=== PATIENT | female | born 1955 | race Caucasian/White ===

== ENCOUNTER 2018-09-03 11:50 | Emergency (ER) | payer OTHER ==
[2018-09-03 12:06] VITALS: BP 142/67; PULSE 69; RESP 18; TEMP 97.9
--- NOTE | 2018-09-03 13:02 | ED ---
General Adult HPI - General Chief complaint: Abdominal Pain Stated complaint: Abdominal pain Time Seen by Provider: 09/03/18 11:53 Source: patient, RN notes reviewed Mode of arrival: EMS Limitations: no limitations - History of Present Illness Initial comments: 62-year-old female presents to the emergency department for a chief complaint of epigastric pain. Patient states that she was eating breakfast when she suddenly felt a pain in her epigastric area she states this pain did radiate in her chest somewhat.. Patient states this concerned her so she immediately called EMS. As EMS was on their way she took simethicone. When she arrived to the emergency department she states pain is completely gone. She states this is completely consistent with her peptic ulcer disease. She states she has no concern for her heart at this time. She states she does not need evaluation and wants to go home as she is feeling 100% better. Patient has no other complaints at this time including shortness of breath, nausea or vomiting, headache, or visual changes. - Related Data Home Medications Medication Instructions Recorded Confirmed Aspirin 81 mg PO DAILY 11/09/13 07/04/14 Cholecalciferol [Vitamin D3] 1,000 unit PO DAILY 11/09/13 07/04/14 Esomeprazole Magnesium [NexIUM] 40 mg PO DAILY 11/09/13 07/04/14 Fenofibrate Nanocrystallized 145 mg PO DAILY 11/09/13 07/04/14 [Tricor] Fexofenadine/Pseudoephedrine 1 each PO BID 11/09/13 07/04/14 [Gwen-D 12 Hour Tablet] Levothyroxine Sodium [Synthroid] 125 mcg PO DAILY 11/09/13 07/04/14 Montelukast Sodium [Singulair] 10 mg PO DAILY 11/09/13 07/04/14 Pregabalin [Lyrica] 75 mg PO BID 11/09/13 07/04/14 [place] Oil/[place]-3 Fatty Acids 2 each PO BID 11/09/13 07/04/14 [Fish Oil 500 mg Softgel] Sodium Chloride 5% Ophth Oint 1 applic BOTH EYES HS 07/04/14 07/04/14 [Mike 128] Previous Rx's Medication Instructions Recorded Ondansetron Odt [Zofran ODT] 4 mg PO Q12HR PRN #10 tab 11/09/13 Ondansetron [Zofran ODT] 4 mg PO Q8HR #10 tab 11/09/13 Allergies Allergy/AdvReac Type Severity Reaction Status Date / Time Penicillins Allergy Rash/Hives Verified 07/04/14 12:09 Sulfa (Sulfonamide Allergy Rash/Hives Verified 07/04/14 12:09 Antibiotics) Review of Systems ROS Statement: Those systems with pertinent positive or pertinent negative responses have been documented in the HPI. ROS Other: All systems not noted in ROS Statement are negative. Past Medical History Past Medical History: Asthma, COPD, GERD/Reflux, Hyperlipidemia, Thyroid Disorder Additional Past Medical History / Comment(s): TRIGEMINAL NEURALGIA, keratoconjuntivitis sicca. "bad gallbladder" History of Any Multi-Drug Resistant Organisms: None Reported Past Surgical History: No Surgical Hx Reported Additional Past Surgical History / Comment(s): cataracts, dental extraction Past Psychological History: No Psychological Hx Reported Smoking Status: Current every day smoker Past Alcohol Use History: None Reported Past Drug Use History: None Reported General Exam Limitations: no limitations General appearance: alert, in no apparent distress Head exam: Present: atraumatic, normocephalic, normal inspection Eye exam: Present: normal appearance, PERRL, EOMI. Absent: scleral icterus, conjunctival injection, periorbital swelling ENT exam: Present: normal exam, mucous membranes moist Neck exam: Present: normal inspection. Absent: tenderness, meningismus, lymphadenopathy Respiratory exam: Present: normal lung sounds bilaterally. Absent: respiratory distress, wheezes, rales, rhonchi, stridor Cardiovascular Exam: Present: regular rate, normal rhythm, normal heart sounds. Absent: systolic murmur, diastolic murmur, rubs, gallop, clicks GI/Abdominal exam: Present: soft, normal bowel sounds. Absent: distended, tenderness (No tenderness in the epigastric area), guarding, rebound, rigid Neurological exam: Present: alert, oriented X3, CN II-XII intact Psychiatric exam: Present: normal affect, normal mood Course Vital Signs 09/03/18 12:01 Temperature 97.9 F Pulse Rate 69 Respiratory 18 Rate Blood Pressure 142/67 O2 Sat by Pulse 99 Oximetry Medical Decision Making - Medical Decision Making 62-year-old female with a past medical history of hyperlipidemia, COPD, asthma, GERD, peptic ulcer disease presents for epigastric pain after eating breakfast. This did radiate into the chest. She called EMS and took simethicone. Upon arrival to emergency department. Is completely resolved. Patient refusing evaluation at this time stating she is feeling 100% better. I did discuss that I am concerned about patient's heart given comorbidities as well as pain radiating into the chest. She states she is not concerned about this as she has had this pain before with her peptic ulcer disease. Patient is aware that she could have [place] causing permanent disability or . She does not want an EKG at this time. Patient willing to leave AGAINST MEDICAL ADVICE which was discussed thoroughly with her. I did discuss returning if she has worsening symptoms and that we will see her again for this problem. She will follow up with primary care. Disposition Clinical Impression: Epigastric pain, History of peptic ulcer disease Disposition: Left Against Medical Advice Condition: Fair Instructions (If sedation given, give patient instructions): Chest Pain (ED), Peptic Ulcer (ED) Additional Instructions: Please follow up with primary care in 1-2 days. If you have worsening symptoms return here to the emergency department. Is patient prescribed a controlled substance at d/c from ED?: No Referrals: Holly Asher III, MD [Primary Care Provider] - 1-2 days Time of Disposition: 13:02
== END 2018-09-03 13:13 | disposition left against medical advice (07) ==
LOC: EC 11:50
DX: R10.13 Epigastric pain (principal); Z87.11 Personal history of peptic ulcer disease; J44.9 Chronic obstructive pulmonary disease, unspecified; E78.5 Hyperlipidemia, unspecified; K21.9 Gastro-esophageal reflux disease without esophagitis; E07.9 Disorder of thyroid, unspecified; H16.229 Keratoconjunctivitis sicca, not specified as Sjogren's, unspecified eye; F17.200 Nicotine dependence, unspecified, uncomplicated; Z88.0 Allergy status to penicillin; Z88.2 Allergy status to sulfonamides; Z79.82 Long term (current) use of aspirin; Z79.890 Hormone replacement therapy; Z79.899 Other long term (current) drug therapy; Z86.69 Personal history of other diseases of the nervous system and sense organs; Z53.20 Procedure and treatment not carried out because of patient's decision for unspecified reasons
CPT/HCPCS: 99284

== ENCOUNTER → 2021-06-04 | Outpatient (CLI) | payer OTHER ==
--- NOTE | 2021-06-05 09:59 | CT ---
EXAMINATION TYPE: CT sinus wo con DATE OF EXAM: 06/04/2021 COMPARISON: NONE HISTORY: Facial pain and headache. Swelling. CT DLP: 593.60 mGycm. Automated Exposure Control for Dose Reduction was Utilized. TECHNIQUE: CT scan of the sinuses is performed without contrast, axial images are obtained, coronal r eformatted images are also reviewed. FINDINGS: The paranasal sinuses including the frontal, ethmoid, sphenoid, and maxillary sinuses bila terally are well-aerated without abnormal opacification or suspicious air-fluid levels. The ostiomea lady complex is patent bilaterally on coronal image 19. Nasal septum is deviated to right of midline. Visualized portion of mastoid air cells show no abnormal opacification. The globes are intact bilate rally. Visualized portion of brain parenchyma is unremarkable. Moderate calcified plaque distal inte rnal carotid arteries bilaterally. IMPRESSION: The sinuses are clear and the ostiomeatal complex is patent bilaterally.
== END | disposition home or self-care (01) ==
LOC: RADCTMAIN 18:43
PROVIDERS: ATTEND Family Medicine
DX: R51.9 Headache, unspecified (principal)
CPT/HCPCS: 70486

== ENCOUNTER → 2021-07-30 | Outpatient (CLI) | payer OTHER ==
--- NOTE | 2021-07-30 11:07 | CT ---
EXAMINATION TYPE: CT brain wo con DATE OF EXAM: 07/30/2021 COMPARISON: None HISTORY: Right sided facial and head pain with history of trigeminal neuralgia. CT DLP: 1090.4 mGycm Automated exposure control for dose reduction was used. FINDINGS: Ventricular system is midline without evidence of displacement. There is no acute hemorrhage or mass effect. Ventricular size is compatible with the patient's age. A couple faint areas of nonspecific low attenuation in the white matter. Orbits are symmetric. Nasal septal deviation noted. Craniocervical junction maintained. Sella turcica and normal. Calvarium intact. Intracranial atherosclerotic changes. IMPRESSION: NO ACUTE INTRACRANIAL PROCESS. VERY MINIMAL NONSPECIFIC WHITE MATTER CHANGES MOST LIKELY IN THE BASIS OF REMOTE WHITE MATTER ISCHEMIA. IF SYMPTOMS PERSIST CONSIDER MRI.
== END | disposition home or self-care (01) ==
LOC: RADCTMAIN 10:36
PROVIDERS: ATTEND Psychiatry & Neurology Neurology
DX: R51.9 Headache, unspecified (principal)
CPT/HCPCS: 70450

== ENCOUNTER → 2021-09-08 | Outpatient (CLI) | payer OTHER ==
--- NOTE | 2021-09-08 21:10 | CT ---
EXAMINATION TYPE: CT abdomen pelvis wo con DATE OF EXAM: 09/08/2021 COMPARISON: None available HISTORY: abdominal pain, diarrhea CT DLP: 2840.2 mGycm Automated exposure control for dose reduction was used. TECHNIQUE: Helical acquisition of images was performed from the lung bases through the pelvis. FINDINGS: Unremarkable stomach, duodenum and small bowel. Mild pericolic fat stranding seen surrounding the jose cending colon, nonspecific. Unremarkable remainder of the colon otherwise. Enlarged liver measuring 23.4 cm with suspected hepatic steatosis. No definite hepatic focal lesion b y this nonenhanced CT scan. The gallbladder is contracted with possible hyperdensities within. It is inseparable from the colonic hepatic flexure. Tiny air bubbles are seen within the gallbladder neck, cystic duct, CHD and central left intrahepatic bile ducts. In the absence of recent biliary intervent ion, this could be related to incompetent sphincter of Oddi versus fistula between the gallbladder an d the colon. No intra or extrahepatic biliary tree dilatation. No pericholecystic fluid or fat strand ing. Unremarkable unenhanced CT appearance of the spleen, pancreas, adrenals and left kidney. Right renal cysts without suspicious feature. No hydronephrosis or hydroureter. Grossly unremarkable urinary blad moshe. No gross uterine or adnexal mass. Arterial atherosclerotic calcifications. Prominent external il iac and to a lesser extent inguinal lymph nodes. For example, a right external iliac lymph node measu res 18 mm. A left external iliac lymph node measures 13 mm. No pathologically enlarged mesenteric or retroperitoneal lymph nodes. Anterior abdominal wall skin thickening mainly seen inferiorly at the pannus. No sizable ascites. Per itoneal mouse is seen between the rectum and the uterine cervix. Bilateral basal subsegmental pulmona ry atelectasis and subpleural reticulations. Right flank subcutaneous soft tissue calcification. Dege nerative changes of the lower thoracic, lumbar spine and sacroiliac joints. Grade 1 anterolisthesis o f L4 over L5. IMPRESSION: Suboptimal CT scan due to the lack of IV contrast administration. Contracted gallbladder with possibl e hyperdensities within associated with air bubbles seen within the gallbladder, cystic duct, CHD and central intrahepatic biliary tree (pneumobilia). No pericholecystic fluid or fat stranding. In the absence of recent biliary intervention, this could be related to an incompetent sphincter of O ddi versus fistula between the gallbladder and the colonic hepatic flexure as described above. Recomm end correlation with liver function tests, bilirubin level and further ultrasound assessment. If inco nclusive, further MRI assessment should be considered. Other incidental findings as described above. A [place] level critical message alert has been initiated for Holly Asher III, MD via the [employer] Critical Results System on 09/08/2021 9:11 PM. This message alert has been sent to Holly garcia III, MD via the preferences provided by the clinician for the receipt of Radiology Critical Fin dings. Message ID [id number].
== END | disposition home or self-care (01) ==
LOC: RADCTMAIN 11:42
PROVIDERS: ATTEND Family Medicine
DX: R10.84 Generalized abdominal pain (principal)
CPT/HCPCS: 74176

== ENCOUNTER 2023-02-04 12:27 | Emergency (ER) | payer MEDICARE, OTHER ==
[2023-02-04 12:41] VITALS: RESP 20; TEMP 98.1
[2023-02-04] MEDS ORDERED: CLINDAMYCIN 150 MG CAP PO STA (13:12)
--- NOTE | 2023-02-04 13:12 | ED ---
Lower Extremity Injury HPI - General Chief Complaint: Extremity Injury, Lower Stated Complaint: poss cellulitus rt leg Time Seen by Provider: 02/04/23 12:40 Source: patient Mode of arrival: ambulatory - History of Present Illness Initial Comments: 67-year-old female with past medical history of hyperlipidemia, obesity who presents to the emergency department reporting right lower extremity swelling and pain. States that she does have venous stasis. One week ago the patient was having significant itching in the extremity. She scratched her skin and sustained open abrasions. She then had increasing swelling and redness to the site. Admits to a history of recurrent cellulitis. She normally does not have to wear compression stockings. She has never gone to wound care. No history of MRSA. No history of DVT or PE. Denies any chest pain or shortness of breath. No alleviating, precipitating or modifying factors - Related Data Home Medications Medication Instructions Recorded Confirmed Aspirin 81 mg PO DAILY 11/09/13 12/03/21 Cholecalciferol [Vitamin D3] 2,000 unit PO BID 11/09/13 12/03/21 Levothyroxine Sodium [Synthroid] 125 mcg PO DAILY 11/09/13 12/03/21 Montelukast Sodium [Singulair] 10 mg PO DAILY 11/09/13 12/03/21 Pregabalin [Lyrica] 150 mg PO BID 11/09/13 12/03/21 Acetaminophen Tab [Tylenol Tab] 1,000 mg PO Q6HR 12/03/21 12/03/21 Cyanocobalamin (Vitamin B-12) 1,000 mcg PO DAILY 12/03/21 12/03/21 [Vitamin B-12] Dicyclomine [Bentyl] 20 mg PO TID 12/03/21 12/03/21 Lansoprazole [Prevacid] 30 mg PO DAILY 12/03/21 12/03/21 Loratadine-Pseudoeph 5-120 mg 1 tab PO Q12HR 12/03/21 12/03/21 [Claritin-D 12 Hour] [place]-3 Fatty Acids/Fish Oil [Fish 1 each PO DAILY 12/03/21 12/03/21 Oil 1,000 mg Softgel] Simethicone 180 mg PO BID 12/03/21 12/03/21 carBAMazepine [TEGretol] 200 mg PO BID 12/03/21 12/03/21 hydroCHLOROthiazide [Hydrodiuril] 25 mg PO DAILY 12/03/21 12/03/21 Previous Rx's Medication Instructions Recorded clindamycin HCL [Cleocin] 300 mg PO Q6HR #28 cap 02/04/23 Allergies Allergy/AdvReac Type Severity Reaction Status Date / Time Penicillins Allergy Unknown Verified 02/04/23 12:41 Childhood Sulfa (Sulfonamide Allergy Rash/Hives Verified 02/04/23 12:41 Antibiotics) Review of Systems ROS Statement: Those systems with pertinent positive or pertinent negative responses have been documented in the HPI. ROS Other: All systems not noted in ROS Statement are negative. Past Medical History Past Medical History: Asthma, GERD/Reflux, Hyperlipidemia, Osteoarthritis (OA), Thyroid Disorder Additional Past Medical History / Comment(s): TRIGEMINAL NEURALGIA, LT EYE keratoconjuntivitis sicca. CHANGE IN BOWEL HABITS-LOOSE STOOLS SINCE AUG 2021. HYPOGLYCEMIC History of Any Multi-Drug Resistant Organisms: None Reported Past Surgical History: No Surgical Hx Reported Additional Past Surgical History / Comment(s): BILAT cataracts, dental extraction. EGD Past Anesthesia/Blood Transfusion Reactions: No Reported Reaction Past Psychological History: Anxiety, Depression Smoking Status: Current every day smoker Past Alcohol Use History: None Reported Past Drug Use History: None Reported - Past Family History Mother Additional Family Medical History / Comment(s): ADOPTED General Exam General appearance: alert, in no apparent distress Extremities exam: Present: pedal edema (With the right being worse than the left. There is an open area measuring 4 x 2 cm on the anterior right hughes with no active drainage. No fluctuance. Large surrounding area of cellulitis. 2+ edema in the right lower extremity with 1+ in the left lower extremity. No knee swelling) Back exam: Present: normal inspection Neurological exam: Present: alert, oriented X3, CN II-XII intact Psychiatric exam: Present: normal affect, normal mood Skin exam: Present: warm, dry. Absent: rash Course Vital Signs 02/04/23 02/04/23 12:36 15:13 Temperature 98.1 F Pulse Rate 79 86 Respiratory 20 20 Rate Blood Pressure 181/82 175/86 O2 Sat by Pulse 95 98 Oximetry Medical Decision Making - Medical Decision Making Was pt. sent in by a medical professional or institution (, PA, FASHION DIRECTOR [employer], urgent care, hospital, or long-term...) When possible be specific @ -[facility] Did you speak to anyone other than the patient for history (EMS, parent, family, police, friend...)? What history was obtained from this source @ -No Did you review nursing and triage notes (agree or disagree)? Why? @ -I reviewed and agree with nursing and triage notes Were old charts reviewed (outside hosp., previous admission, EMS record, old EKG, old radiological studies, urgent care reports/EKG's, long-term records)? Report findings @ -No old charts were reviewed Differential Diagnosis (chest pain, altered mental status, abdominal pain women, abdominal pain men, vaginal bleeding, weakness, fever, dyspnea, syncope, headache, dizziness, GI bleed, back pain, seizure, CVA, palpatations, mental health, musculoskeletal)? @ -Cellulitis, DVT, venous stasis, necrotizing fascitis, MRSA EKG interpreted by me (3pts min.). @ -Not completed X-rays interpreted by me (1pt min.). @ -None done CT interpreted by me (1pt min.). @ -None done U/S interpreted by me (1pt. min.). @ -None done What testing was considered but not performed or refused? (CT, X-rays, U/S, labs)? Why? @ -Ultrasound of the lower extremity however patient refused What meds were considered but not given or refused? Why? @ -None Did you discuss the management of the patient with other professionals (professionals i.e. , PA, [employer], lab, RT, psych nurse, community mental health social worker, tetryl screen operator, teacher, building drafting officer, casework specialist)? Give summary @ -No Was smoking cessation discussed for >3mins.? @ -No Was critical care preformed (if so, how long)? @ -No Were there social determinants of health that impacted care today? How? (Homelessness, low income, unemployed, alcoholism, drug addiction, transportation, low edu. Level, literacy, decrease access to med. care, [facility], rehab)? @ -No Was there de-escalation of care discussed even if they declined (Discuss DNR or withdrawal of care, Hospice)? DNR status @ -No What co-morbidities impacted this encounter? (DM, HTN, Smoking, COPD, CAD, Cancer, CVA, ARF, Chemo, Hep., AIDS, mental health diagnosis, sleep apnea, morbid obesity)? @ -Obesity, chronic venous stasis Was patient admitted / discharged? Hospital course, mention meds given and route, prescriptions, significant lab abnormalities, going to OR and other pertinent info. @ -Upon arrival the patient is placed in room 14. Thorough history and physical exam was performed. We did cleanse the patient's wound. She will be started on antibiotics. States that she cannot tolerate Keflex and therefore sh law is placed on clindamycin. Is instructed to keep the area clean and dry. Recommended that she follow up with primary care doctor for wound reevaluation and return for any new or worsening symptoms. Patient was agreeable to this plan she is discharged in stable condition Undiagnosed new problem with uncertain prognosis? @ -No Drug Therapy requiring intensive monitoring for toxicity (Heparin, Nitro, Insulin, Cardizem)? @ -No Were any procedures done? @ -No Diagnosis/symptom? @ -Acute cellulitis right lower extremity Acute, or Chronic, or Acute on Chronic? @ -Acute Uncomplicated (without systemic symptoms) or Complicated (systemic symptoms)? @ -Uncomplicated Side effects of treatment? @ -ALLERGIC reaction Exacerbation, Progression, or Severe Exacerbation? @ -No Poses a threat to life or bodily function? How? (Chest pain, [place], [place], pneumonia, PE, COPD, DKA, ARF, appy, cholecystitis, CVA, Diverticulitis, Homicidal, Suicidal, threat to staff... and all critical care pts) @ -No Disposition Clinical Impression: Cellulitis Disposition: HOME SELF-CARE Condition: Stable Instructions (If sedation given, give patient instructions): Cellulitis (ED) Additional Instructions: Take the antibiotics as directed. Follow up with your doctor and return for any new or worsening symptoms Prescriptions: clindamycin HCL [Cleocin] 300 mg PO Q6HR #28 cap Is patient prescribed a controlled substance at d/c from ED?: No Referrals: None,Stated [Primary Care Provider] - 1-2 days Time of Disposition: 14:52
[2023-02-04 15:14] VITALS: BP 175/86; PULSE 86
== END 2023-02-04 15:13 | disposition home or self-care (01) ==
LOC: EC 12:27
DX: L03.115 Cellulitis of right lower limb (principal); J45.909 Unspecified asthma, uncomplicated; E78.5 Hyperlipidemia, unspecified; K21.9 Gastro-esophageal reflux disease without esophagitis; E07.9 Disorder of thyroid, unspecified; E66.9 Obesity, unspecified; F17.200 Nicotine dependence, unspecified, uncomplicated; Z79.82 Long term (current) use of aspirin; Z79.890 Hormone replacement therapy; Z79.899 Other long term (current) drug therapy; Z88.0 Allergy status to penicillin; Z88.2 Allergy status to sulfonamides; Z68.41 Body mass index [BMI] 40.0-44.9, adult
CPT/HCPCS: 99283

== ENCOUNTER → 2023-05-20 | Outpatient (CLI) | payer MEDICARE, OTHER ==
--- NOTE | 2023-05-20 15:15 | US ---
EXAMINATION TYPE: US arterial LE multi level DATE OF EXAM: 05/20/2023 2:32 PM CLINICAL INDICATION: Female, 67 years old with history of I73.9 PERIPHERAL VASCULAR DISEASE, UNSPECIF IED; PVD History of: Smoker: Current Smoker Hypertension: No Diabetic: No Hyperlipidemia: No TIA/CVA: No Previous Vascular Surgery: No CAD: No NM: No Vascular Ulcers: No Claudication: No Gangrene: No Doppler Waveforms: Right: Multiphasic, monophasic waveform within the digit Left: Multiphasic, monophasic waveforms within the dorsalis pedis and digit Right Brachial Pressure: 149 Left Brachial Pressure: 160 Ankle-Brachial Indices: Right: 1.11 Left: 1.21 Toe Brachial Indices: Right: 0.68 Left: 0.69 IMPRESSION: Normal ankle-brachial indices bilaterally.
== END | disposition home or self-care (01) ==
LOC: RADUSWWP 13:55
PROVIDERS: ATTEND Internal Medicine Geriatric Medicine
DX: I73.9 Peripheral vascular disease, unspecified (principal)
CPT/HCPCS: 93922

== ENCOUNTER 2023-08-12 22:41 | Observation (INO) | payer MEDICARE, OTHER ==
--- NOTE | 2023-08-12 22:58 | ED ---
Abdominal Pain HPI - General Chief Complaint: Abdominal Pain Stated Complaint: ABD PAIN Time Seen by Provider: 08/12/23 22:46 Source: patient, EMS Mode of arrival: EMS Limitations: no limitations - History of Present Illness Initial Comments: Alana Peña is a 67-year-old female who presents to the ER today for evaluation of right upper quadrant and epigastric abdominal pain. Patient reports she has a history of gallbladder problems and for the past 5 days has been having pain after every time she eats specifically the worst after eating supper which is her heaviest meal. Patient states that today she had some chicken and bread and then she developed severe epigastric and right upper quadrant abdominal pain. She then had what she described as a yellow greasy bowel movement. Pain has resolved however she came to the ER for evaluation. Patient's not had any fevers or chills. She felt some nausea no vomiting with the pain. - Related Data Home Medications Medication Instructions Recorded Confirmed Aspirin 81 mg PO DAILY 11/09/13 12/03/21 Cholecalciferol [Vitamin D3] 2,000 unit PO BID 11/09/13 12/03/21 Levothyroxine Sodium [Synthroid] 125 mcg PO DAILY 11/09/13 12/03/21 Montelukast Sodium [Singulair] 10 mg PO DAILY 11/09/13 12/03/21 Pregabalin [Lyrica] 150 mg PO BID 11/09/13 12/03/21 Acetaminophen Tab [Tylenol Tab] 1,000 mg PO Q6HR 12/03/21 12/03/21 Cyanocobalamin (Vitamin B-12) 1,000 mcg PO DAILY 12/03/21 12/03/21 [Vitamin B-12] Dicyclomine [Bentyl] 20 mg PO TID 12/03/21 12/03/21 Lansoprazole [Prevacid] 30 mg PO DAILY 12/03/21 12/03/21 Loratadine-Pseudoeph 5-120 mg 1 tab PO Q12HR 12/03/21 12/03/21 [Claritin-D 12 Hour] [place]-3 Fatty Acids/Fish Oil [Fish 1 each PO DAILY 12/03/21 12/03/21 Oil 1,000 mg Softgel] Simethicone 180 mg PO BID 12/03/21 12/03/21 carBAMazepine [TEGretol] 200 mg PO BID 12/03/21 12/03/21 hydroCHLOROthiazide [Hydrodiuril] 25 mg PO DAILY 12/03/21 12/03/21 Previous Rx's Medication Instructions Recorded clindamycin HCL [Cleocin] 300 mg PO Q6HR #28 cap 02/04/23 Allergies Allergy/AdvReac Type Severity Reaction Status Date / Time Penicillins Allergy Unknown Verified 08/12/23 22:56 Childhood Sulfa (Sulfonamide Allergy Rash/Hives Verified 08/12/23 22:56 Antibiotics) Review of Systems ROS Statement: Those systems with pertinent positive or pertinent negative responses have been documented in the HPI. ROS Other: All systems not noted in ROS Statement are negative. Past Medical History Past Medical History: Asthma, GERD/Reflux, Hyperlipidemia, Osteoarthritis (OA), Thyroid Disorder Additional Past Medical History / Comment(s): TRIGEMINAL NEURALGIA, LT EYE keratoconjuntivitis sicca. CHANGE IN BOWEL HABITS-LOOSE STOOLS SINCE AUG 2021. HYPOGLYCEMIC History of Any Multi-Drug Resistant Organisms: None Reported Past Surgical History: No Surgical Hx Reported Additional Past Surgical History / Comment(s): BILAT cataracts, dental ex traction. EGD Past Anesthesia/Blood Transfusion Reactions: No Reported Reaction Past Psychological History: Anxiety, Depression Smoking Status: Current every day smoker Past Alcohol Use History: None Reported Past Drug Use History: None Reported - Past Family History Mother Additional Family Medical History / Comment(s): ADOPTED General Exam Limitations: no limitations General appearance: alert, in no apparent distress Head exam: Present: atraumatic Eye exam: Present: PERRL ENT exam: Present: normal exam Neck exam: Present: normal inspection Respiratory exam: Absent: respiratory distress Cardiovascular Exam: Present: regular rate GI/Abdominal exam: Present: soft, other (Protuberant abdomen with mild right upper quadrant tenderness). Absent: guarding, rebound, rigid Rectal exam: Present: deferred Extremities exam: Present: full ROM Neurological exam: Present: alert, oriented X3 Psychiatric exam: Present: normal affect, normal mood Skin exam: Present: warm, dry, intact Course Vital Signs 08/12/23 08/13/23 08/13/23 22:44 00:00 02:00 Temperature 99.4 F 99.0 F 99.1 F Pulse Rate 91 89 120 H Respiratory 24 18 24 Rate Blood Pressure 173/68 143/54 138/59 O2 Sat by Pulse 95 98 96 Oximetry 08/13/23 08/13/23 08/13/23 04:00 05:00 06:30 Temperature 99.9 F H 99.8 F H Pulse Rate 125 H 118 H 105 H Respiratory 15 18 19 Rate Blood Pressure 121/44 119/40 119/54 O2 Sat by Pulse 98 97 94 L Oximetry Medical Decision Making - Medical Decision Making Was pt. sent in by a medical professional or institution (, PA, EVAPORATOR HELPER, urgent care, hospital, or group home...) When possible be specific @ -No Did you speak to anyone other than the patient for history (EMS, parent, family, police, friend...)? What history was obtained from this source @ - at bedside Did you review nursing and triage notes (agree or disagree)? Why? @ -I reviewed and agree with nursing and triage notes Were old charts reviewed (outside hosp., previous admission, EMS record, old EKG, old radiological studies, urgent care reports/EKG's, group home records)? Report findings @ -No old charts were reviewed Differential Diagnosis (chest pain, altered mental status, abdominal pain women, abdominal pain men, vaginal bleeding, weakness, fever, dyspnea, syncope, headache, dizziness, GI bleed, back pain, seizure, CVA, palpatations, mental health)? @ -Differential Abdominal Pain Women: Appendicitis, Cholecystitis, diverticulosis, ischemic bowel, pancreatitis, hepatitis, UTI, gastroenteritis, AAA, incarcerated hernia, bowel obstruction, constipation, inflammatory bowel, hepatitis, peptic ulcer disease, splenic infarction, perforated viscus, vulvitis, ovarian torsion, PID, kidney stone, placenta abruption, this is not meant to be an all-inclusive list EKG interpreted by me (3pts min.). @ -As above X-rays interpreted by me (1pt min.). @ -None done CT interpreted by me (1pt min.). @ -No enlarged gallbladder, no free air no signs of obstruction U/S interpreted by me (1pt. min.). @ -None done What testing was considered but not performed or refused? (CT, X-rays, U/S, labs)? Why? @ -HIDA scan can be completed during hospitalization What meds were considered but not given or refused? Why? @ -None Did you discuss the management of the patient with other professionals (professionals i.e. , PA, EVAPORATOR HELPER, lab, RT, psych nurse, professor of social work, treater, teacher, worldwide chief creative officer, caser)? Give summary @ -Admitting physician Was smoking cessation discussed for >3mins.? @ -No Was critical care preformed (if so, how long)? @ -No Were there social determinants of health that impacted care today? How? (Homelessness, low income, unemployed, alcoholism, drug addiction, transportation, low edu. Level, literacy, decrease access to med. care, [facility], rehab)? @ -No Was there de-escalation of care discussed even if they declined (Discuss DNR or withdrawal of care, Hospice)? DNR status @ -No What co-morbidities impacted this encounter? (DM, HTN, Smoking, COPD, CAD, Cancer, CVA, ARF, Chemo, Hep., AIDS, mental health diagnosis, sleep apnea, morbid obesity)? @ -Morbid obesity, diabetes Was patient admitted / discharged? Hospital course, mention meds given and route, prescriptions, significant lab abnormalities, going to OR and other pertinent info. @ -Admit The patient was seen and evaluated, history was obtained from the patient and at bedside. Patient is quite anxious and tearful stating she is scared to be here. She has postprandial pain and right upper quadrant abdominal pain with yellow diarrhea x 2. Labs are obtained and reveal transaminitis with mildly elevated bilirubin. Acute hepatitis panel was ordered ultrasound of the gallbladder was ordered but was nondiagnostic due to patient's body habitus. CT of the abdomen was ordered and reviewed there was no obvious abnormalities that the bile duct was not commented on. It did not appear dilated on my evaluation. I suspect the patient needs a HIDA scan and recommend the patient be placed on observation to have this completed due to her persistent pain and transaminitis. Patient was reluctantly agreeable to this plan. Patient is still quite anxious about being at the hospital. She did receive Ativan after her CT scan due to her nervousness. Undiagnosed new problem with uncertain prognosis? @ -No Drug Therapy requiring intensive monitoring for toxicity (Heparin, Nitro, Insulin, Cardizem)? @ -No Were any procedures done? @ -No Diagnosis/symptom? @ -Abdominal pain with transaminitis Acute, or Chronic, or Acute on Chronic? @ -Acute Uncomplicated (without systemic symptoms) or Complicated (systemic symptoms)? @ -Default Side effects of treatment? @ -No Exacerbation, Progression, or Severe Exacerbation? @ -No Poses a threat to life or bodily function? How? (Chest pain, USA, OR, pneumonia, PE, COPD, DKA, ARF, appy, cholecystitis, CVA, Diverticulitis, Homicidal, Suicidal, threat to staff... and all critical care pts) @ -Potentially could indicate early cholangitis, choledocholithiasis which can lead to sepsis and septic shock - Lab Data Result diagrams: 08/12/23 23:55 08/12/23 23:55 Lab Results 08/12/23 08/12/23 08/13/23 Range/Units 23:55 23:55 00:36 WBC 13.9 H (3.8-10.6) k/uL RBC 4.93 (3.80-5.40) m/uL Hgb 14.4 (11.4-16.0) gm/dL Hct 42.1 (34.0-46.0) % MCV 85.4 (80.0-100.0) fL MCH 29.3 (25.0-35.0) pg MCHC 34.3 (31.0-37.0) g/dL RDW 14.1 (11.5-15.5) % Plt Count 192 (150-450) k/uL MPV 9.3 Neutrophils % 84 % Lymphocytes % 9 % Monocytes % 5 % Eosinophils % 2 % Basophils % 0 % Neutrophils # 11.6 H (1.3-7.7) k/uL Lymphocytes # 1.2 (1.0-4.8) k/uL Monocytes # 0.7 (0-1.0) k/uL Eosinophils # 0.3 (0-0.7) k/uL Basophils # 0.1 (0-0.2) k/uL Sodium 139 (137-145) mmol/L Potassium 4.2 (3.5-5.1) mmol/L Chloride 104 (98-107) mmol/L Carbon Dioxide 27 (22-30) mmol/L Anion Gap 8 mmol/L BUN 22 H (7-17) mg/dL Creatinine 0.88 (0.52-1.04) mg/dL Est GFR (CKD-EPI)AfAm 80 (>60 ml/min/1.73 sqM) Est GFR (CKD-EPI)NonAf 70 (>60 ml/min/1.73 sqM) Glucose 121 H (74-99) mg/dL POC Glucose (mg/dL) 125 H (70-110) mg/dL POC Glu Associate Application Developer Mike Boles Calcium 9.3 (8.4-10.2) mg/dL Total Bilirubin 1.4 H (0.2-1.3) mg/dL AST 470 H (14-36) U/L ALT 245 H (4-34) U/L Alkaline Phosphatase 147 H (38-126) U/L Total Protein 7.4 (6.3-8.2) g/dL Albumin 4.3 (3.5-5.0) g/dL Lipase 95 (23-300) U/L Urine Color Urine Appearance (Clear) Urine pH (5.0-8.0) Ur Specific [place] (1.001-1.035) Urine Protein (Negative) Urine Glucose (UA) (Negative) Urine Ketones (Negative) Urine Blood (Negative) Urine Nitrite (Negative) Urine Bilirubin (Negative) Urine Urobilinogen (<2.0) mg/dL Ur Leukocyte Esterase (Negative) Urine RBC (0-5) /hpf Urine WBC (0-5) /hpf Ur Squamous Epith Cells (0-4) /hpf Urine Bacteria (None) /hpf Hyaline Casts (0-2) /lpf Urine Mucus (None) /hpf 08/13/23 08/13/23 Range/Units 00:46 02:44 WBC (3.8-10.6) k/uL RBC (3.80-5.40) m/uL Hgb (11.4-16.0) gm/dL Hct (34.0-46.0) % MCV (80.0-100.0) fL MCH (25.0-35.0) pg MCHC (31.0-37.0) g/dL RDW (11.5-15.5) % Plt Count (150-450) k/uL MPV Neutrophils % % Lymphocytes % % Monocytes % % Eosinophils % % Basophils % % Neutrophils # (1.3-7.7) k/uL Lymphocytes # (1.0-4.8) k/uL Monocytes # (0-1.0) k/uL Eosinophils # (0-0.7) k/uL Basophils # (0-0.2) k/uL Sodium (137-145) mmol/L Potassium (3.5-5.1) mmol/L Chloride (98-107) mmol/L Carbon Dioxide (22-30) mmol/L Anion Gap mmol/L BUN (7-17) mg/dL Creatinine (0.52-1.04) mg/dL Est GFR (CKD-EPI)AfAm (>60 ml/min/1.73 sqM) Est GFR (CKD-EPI)NonAf (>60 ml/min/1.73 sqM) Glucose (74-99) mg/dL POC Glucose (mg/dL) 156 H (70-110) mg/dL POC Glu Associate Application Developer ID Mike Caceres Calcium (8.4-10.2) mg/dL Total Bilirubin (0.2-1.3) mg/dL AST (14-36) U/L ALT (4-34) U/L Alkaline Phosphatase (38-126) U/L Total Protein (6.3-8.2) g/dL Albumin (3.5-5.0) g/dL Lipase (23-300) U/L Urine Color Yellow Urine Appearance Cloudy H (Clear) Urine pH 6.5 (5.0-8.0) Ur Specific [place] 1.020 (1.001-1.035) Urine Protein Negative (Negative) Urine Glucose (UA) Negative (Negative) Urine Ketones Negative (Negative) Urine Blood Negative (Negative) Urine Nitrite Positive H (Negative) Urine Bilirubin Negative (Negative) Urine Urobilinogen <2.0 (<2.0) mg/dL Ur Leukocyte Esterase Negative (Negative) Urine RBC 1 (0-5) /hpf Urine WBC 3 (0-5) /hpf Ur Squamous Epith Cells 9 H (0-4) /hpf Urine Bacteria Many H (None) /hpf Hyaline Casts 1 (0-2) /lpf Urine Mucus Rare H (None) /hpf - EKG Data -: EKG Interpreted by Me EKG shows normal: sinus rhythm EKG Comments: EKG interpreted by me, EKG obtained due to tachycardia, EKG obtained at 4:49 AM rate is 123 rhythm is sinus tachycardia normal intervals, CA 163, QRS 99, QTc 410 there are no acute ST elevations or depressions no evidence of ischemia or infarction. Disposition Clinical Impression: Abdominal pain, Transaminitis, Morbid obesity Disposition: ADMITTED IP TO THIS HOSP Condition: Stable Is patient prescribed a controlled substance at d/c from ED?: No
[2023-08-12] MEDS ORDERED: SODIUM CHLORIDE 0.9% 1,000 ML IV STA (23:45)
[2023-08-13 00:09] LABS: Basophils # (A) 0.1 k/uL (0-0.2); Basophils % (A) 0 %; Eosinophils # (A) 0.3 k/uL (0-0.7); Eosinophils % (A) 2 %; HCT 42.1 % (34.0-46.0); HGB 14.4 gm/dL (11.4-16.0); Lymphocytes # (A) 1.2 k/uL (1.0-4.8); Lymphocytes % (A) 9 %; MCH 29.3 pg (25.0-35.0); MCHC 34.3 g/dL (31.0-37.0); MCV 85.4 fL (80.0-100.0); Mean Platelet Volume 9.3; Monocytes # (A) 0.7 k/uL (0-1.0); Monocytes % (A) 5 %; Neutrophils # (A) 11.6 k/uL (1.3-7.7); Neutrophils % (A) 84 %; Platelet Count 192 k/uL (150-450); RBC 4.93 m/uL (3.80-5.40); RDW 14.1 % (11.5-15.5); WBC 13.9 k/uL (3.8-10.6)
[2023-08-13 00:18] LABS: ALT 245 U/L (4-34); AST 470 U/L (14-36); African American GFR (CKD) 80 (>60 ml/min/1.73 sqM); Albumin 4.3 g/dL (3.5-5.0); Alkaline Phosphatase 147 U/L (38-126); Anion Gap 8 mmol/L; Blood Urea Nitrogen 22 mg/dL (7-17); Calcium 9.3 mg/dL (8.4-10.2); Carbon Dioxide 27 mmol/L (22-30); Chloride 104 mmol/L (98-107); Glucose 121 mg/dL (74-99); Lipase 95 U/L (23-300); Non-African American GFR(CKD) 70 (>60 ml/min/1.73 sqM); Potassium 4.2 mmol/L (3.5-5.1); Sodium 139 mmol/L (137-145); Total Bilirubin 1.4 mg/dL (0.2-1.3); Total Protein 7.4 g/dL (6.3-8.2)
[2023-08-13 00:38] LABS: Glucose,Whole Blood 125 mg/dL (70-110)
--- NOTE | 2023-08-13 00:41 | US ---
EXAMINATION TYPE: US gallbladder DATE OF EXAM: 08/13/2023 COMPARISON: CT abdomen and pelvis compared 28/02/2022 CLINICAL INDICATION: Female, 67 years old with history of postprandial pain; postprandial pain x 5 da ys. Hx of pneumobilia (on prev CT.) TECHNIQUE: Multiple sonographic images of the right upper quadrant are obtained. Limited due to body habitus and pt shaking FINDINGS: EXAM MEASUREMENTS: Liver Length: 18.5 cm Gallbladder Wall: Not seen CBD: 0.24 cm Right Kidney: 12.3 x 5.0 x 5.1 cm MEDICAID BILLING CLERK NOTES: Pancreas: Obscured by bowel gas Liver: Heterogeneous. There is dirty shadowing near GB area, could represent pneumobilia vs bowel g as Gallbladder: Not distinctly seen Evidence for sonographic Gaytan's sign: No CBD: wnl Right Kidney: Cyst seen in inf pole measuring 4.7 x 3.9 x 3.4cm Suboptimal evaluation of pancreas on initial images due to body habitus and overlying bowel gas. Hete rogeneous hyperechoic appearance of the liver is present. This limits evaluation for focal masses. No right-sided hydronephrosis. Exophytic 4.7 cm simple appearing thin-walled cyst in the right kidney i s redemonstrated. Common bile duct is not dilated. Gallbladder not distinctly identified on this stud y to evaluate. IMPRESSION: Suboptimal nondiagnostic study. If concern for acute cholecystitis remains present furthe r investigation with HIDA scan would be warranted.
[2023-08-13 02:14] LABS: Appearance,Urine Cloudy (Clear); Bacteria,Urine Many /hpf; Bilirubin,Urine Negative (Negative); Blood,Urine Negative (Negative); Color,Urine Yellow; Glucose,Urine (UA) Negative (Negative); Hyaline Casts,Urine 1 /lpf (0-2); Ketones,Urine Negative (Negative); Leukocyte Esterase,Urine Negative (Negative); Mucus,Urine Rare /hpf; Nitrite,Urine Positive (Negative); PH, Urine 6.5 (5.0-8.0); Protein,Urine Negative (Negative); RBC,Urine 1 /hpf (0-5); Squamous Epithelial Cell,Urine 9 /hpf (0-4); Urobilinogen,Urine <2.0 mg/dL (<2.0); WBC,Urine 3 /hpf (0-5)
[2023-08-13 02:47] LABS: Glucose,Whole Blood 156 mg/dL (70-110)
[2023-08-13] MEDS ORDERED: LORazepam 2 MG/ML INJ IV STA (03:29)
[2023-08-13] MEDS ORDERED: IBUPROFEN 800 MG TAB PO STA (04:39)
[2023-08-13] MEDS ORDERED: SODIUM CHLORIDE 0.9% 2,000 ML IV STA (04:40)
[2023-08-13] MEDS ORDERED: NALOXONE 0.4 MG/ML 1 ML VIAL IV PRN (04:41)
--- NOTE | 2023-08-13 04:43 | CT ---
Alana Peña date of 1955 EXAMINATION TYPE: CT abdomen and pelvis without and with DATE OF EXAM: 08/13/2023 HISTORY: Right upper quadrant pain and transaminitis. Epigastric pain and nausea for 5 days. Automated Exposure Control for Dose Reduction was Utilized. CONTRAST: CT scan of the abdomen and pelvis is performed without and with IV Contrast, patient injected with 10 0 mL of Isovue 300. COMPARISON: Prior CT September 08, 2021 FINDINGS: LUNG BASES: No significant abnormality is appreciated. LIVER/GB: Liver remains heterogeneously hypodense suggesting fatty infiltrative hepatocellular diseas e. No suspicious focal intrahepatic mass or biliary dilatation. Near 1.0 cm calcified lesion adjacent to the inferior liver axial image 52 is redemonstrated PANCREAS: No significant abnormality is seen. SPLEEN: No significant abnormality is seen. ADRENALS: No significant abnormality is seen. KIDNEYS: Exophytic 4.2 cm simple appearing thin-walled cyst posteriorly from the right kidney is incr eased in size from prior study. BOWEL: Normal-appearing appendix from the cecum. No suspicious small or large bowel dilatation. UTERUS/[place]: Anteverted uterus. Prominent right-sided pelvic phlebolith on axial image 93 redemonst rated. LYMPH NODES: No greater than 1cm abdominal or pelvic lymph nodes are appreciated. OSSEOUS STRUCTURES: No significant abnormality is seen. OTHER: Mild to Moderate calcified plaque of the aorta extends into branch vessels. Moderate axial asif nt space loss in both hips. IMPRESSION: No bowel obstruction. No significant acute finding is seen to account for patient's clini jenise symptoms.
[2023-08-13] MEDS ORDERED: diazePAM 5 MG TAB PO STA ×2 (06:56→12:31)
[2023-08-13] MEDS ORDERED: Acetaminophen-Codeine 300-30mg TAB PO PRN (09:12)
[2023-08-13] MEDS ORDERED: carBAMazepine 200 MG TAB PO SCH (09:15)
[2023-08-13] MEDS ORDERED: LEVOTHYROXINE 125 MCG TAB PO SCH (09:15)
[2023-08-13] MEDS ORDERED: MONTELUKAST 10 MG TAB PO SCH (09:15)
[2023-08-13] MEDS ORDERED: ONDANSETRON 4 MG/2 ML VIAL IVP PRN (09:17)
[2023-08-13] MEDS ORDERED: KETOROLAC 15 MG/ML 1 ML VIAL IVP PRN (09:17)
[2023-08-13 09:19] LABS: Hepatitis A Antibody IgM Nonreactive; Hepatitis B Core IgM Nonreactive; Hepatitis B Surface Antigen Nonreactive; Hepatitis C IgG Antibody Nonreactive
[2023-08-13] MEDS ORDERED: hydrALAZINE HCL 20 MG/ML 1 ML VIAL IVP PRN (09:25)
[2023-08-13] MEDS ORDERED: PREGABALIN 75 MG CAP PO SCH ×2 (11:30→21:00)
[2023-08-13] MEDS: metroNIDAZOLE-NS PMX 500 MG in SALINE 1 100ML.BAG IVPB SCH ×2 (12:18→13:08)
--- NOTE | 2023-08-13 12:28 | P.CONS ---
History of Present Illness - Reason for Consult Consult date: 08/13/23 Transaminitis Requesting physician: Yadira Feng - Chief Complaint Abdominal pain - History of Present Illness This is a pleasant 67-year-old female who presented to the emergency department for complaints of abdominal pain after eating located mostly in the epigastric region. States this has been going on for the last 5 days duration. Her past medical history includes morbid obesity, asthma, GERD, hyperlipidemia, osteoarthritis and thyroid disorder. There patient states abdominal pain has improved since she has been admitted. She also was positive for urinary tract infection. She does have a history of fatty liver and elevated LFTs according to the patient. Gastroenterology was consulted for transaminitis. She had an ultrasound of the gallbladder which was reported as it is suboptimal nondiagnostic study, gallbladder not distinctly seen however the common bile duct was within normal limits. Liver heterogeneous with reported dirty shadowing near gallbladder area, could represent pneumobilia versus bowel gas. She also had a CT of the abdomen and pelvis that reports no bowel obstruction. No significant acute findings seen to account for patient's clinical symptoms. Patient has a low-grade t fever with max temp of 99.9. Labs WBC 13.9 hemoglobin 14 hematocrit 42 platelet count 192,000 sodium 139 potassium 4.2 BUN 22 creatinine 0.8 total bilirubin 1.4 AST 470 ALT 245 alkaline phosphatase 147 lipase 95 urine positive for nitrite and hepatitis panel nonreactive Review of Systems REVIEW OF SYSTEMS: CARDIOPULMONARY: No chest pain or shortness of breath. Gastrointestinal: Epigastric right upper quadrant pain, mostly after eating. No nausea or vomiting. No hematemesis, coffee-ground emesis. No rectal blee ding, or melena. GENITOURINARY: No dysuria or hematuria. MUSCULOSKELETAL: Reports normal range of motion. SKIN: No rashes. No jaundice. ENDOCRINE: No chills, fevers. No excessive weight gain or loss. No polydipsia or polyuria. PSYCHIATRIC: Unremarkable. NEUROLOGY: No change in mental status. Denies dizziness, headache. ENT: Vision unremarkable. CONSTITUTIONAL: No recent weight loss. No fever, chills, night sweats. Past Medical History Past Medical History: Asthma, GERD/Reflux, Hyperlipidemia, Osteoarthritis (OA), Thyroid Disorder Additional Past Medical History / Comment(s): TRIGEMINAL NEURALGIA, LT EYE keratoconjuntivitis sicca. CHANGE IN BOWEL HABITS-LOOSE STOOLS SINCE AUG 2021. HYPOGLYCEMIC History of Any Multi-Drug Resistant Organisms: None Reported Past Surgical History: No Surgical Hx Reported Additional Past Surgical History / Comment(s): BILAT cataracts, dental extraction. EGD Past Anesthesia/Blood Transfusion Reactions: No Reported Reaction Past Psychological History: Anxiety, Depression Smoking Status: Current every day smoker Past Alcohol Use History: None Reported Past Drug Use History: None Reported - Past Family History Mother Additional Family Medical History / Comment(s): ADOPTED Medications and Allergies Home Medications Medication Instructions Recorded Confirmed Type Aspirin 81 mg PO HS 11/09/13 08/13/23 History Levothyroxine Sodium [Synthroid] 125 mcg PO MOTUTHFRSA 11/09/13 08/13/23 History Montelukast Sodium [Singulair] 10 mg PO DAILY 11/09/13 08/13/23 History Lansoprazole [Prevacid] 30 mg PO DAILY 12/03/21 08/13/23 History [place]-3 Fatty Acids/Fish Oil [Fish 1 cap PO DAILY 12/03/21 08/13/23 History Oil 1,000 mg Softgel] Simethicone 180 mg PO BID 12/03/21 08/13/23 History carBAMazepine [TEGretol] 200 mg PO BID 12/03/21 08/13/23 History hydroCHLOROthiazide [Hydrodiuril] 25 mg PO DAILY 12/03/21 08/13/23 History Acetaminophen-Codeine 300-30mg 1 tab PO Q8H PRN 08/13/23 08/13/23 History [Tylenol w/codeine #3] Cholecalciferol [Vitamin D3 (25 50 mcg PO BID 08/13/23 08/13/23 History Mcg = 1000 Iu)] Cyanocobalamin [Vitamin B-12] 500 mcg PO DAILY 08/13/23 08/13/23 History Levothyroxine Sodium [Synthroid] 250 mcg PO SUWE 08/13/23 08/13/23 History Loratadine-Pseudoeph 10-240 mg 1 tab PO DAILY 08/13/23 08/13/23 History [Claritin-D 24 Hour] Ofloxacin 0.3% Ophth Soln [Ocuflox 1 drop LEFT EYE QID 08/13/23 08/13/23 History Ophth Soln] Pregabalin [Lyrica] 150 mg PO BID 08/13/23 08/13/23 History Propylene Glycol [Systane Complete] 1 drop BOTH EYES QID PRN 08/13/23 08/13/23 History Allergies Allergy/AdvReac Type Severity Reaction Status Date / Time Penicillins Allergy Unknown Verified 08/13/23 07:25 Childhood Sulfa (Sulfonamide Allergy Rash/Hives Verified 08/13/23 07:25 Antibiotics) Physical Exam Vitals: Vital Signs Temp Pulse Resp BP Pulse Ox 08/13/23 08:14 65 18 99/46 94 L 08/13/23 06:30 99.8 F H 105 H 19 119/54 94 L 08/13/23 05:00 118 H 18 119/40 97 08/13/23 04:00 99.9 F H 125 H 15 121/44 98 08/13/23 02:00 99.1 F 120 H 24 138/59 96 08/13/23 00:00 99.0 F 89 18 143/54 98 08/12/23 22:44 99.4 F 91 24 173/68 95 Intake and Output 08/12/23 08/13/23 08/13/23 22:59 06:59 14:59 Other: # Voids 1 Weight 130.635 kg General appearance: The patient is alert, oriented, appears in no acute distress. Morbidly obese. HET: Head is normocephalic and atraumatic. Conjunctiva pink. Sclera anicteric. Neck: Supple without lymphadenopathy. Trachea midline. Heart: Regular. Lungs: Equal expansion, normal respiratory effort. Abdomen: Soft, nontender, nondistended with bowel sounds. No guarding or rigidity. Skin: No rashes. No jaundice. Extremities: Normal skin color and turgor. No pedal edema. Neurological: No focal deficits. Alert and oriented x3. Results CBC & Chem 7: 08/12/23 23:55 08/12/23 23:55 Labs: Abnormal Lab Results - Last 24 Hours (Table) 08/12/23 08/12/23 08/13/23 Range/Units 23:55 23:55 00:36 WBC 13.9 H (3.8-10.6) k/uL Neutrophils # 11.6 H (1.3-7.7) k/uL BUN 22 H (7-17) mg/dL Glucose 121 H (74-99) mg/dL POC Glucose (mg/dL) 125 H (70-110) mg/dL Total Bilirubin 1.4 H (0.2-1.3) mg/dL AST 470 H (14-36) U/L ALT 245 H (4-34) U/L Alkaline Phosphatase 147 H (38-126) U/L Urine Appearance (Clear) Urine Nitrite (Negative) Ur Squamous Epith Cells (0-4) /hpf Urine Bacteria (None) /hpf Urine Mucus (None) /hpf 08/13/23 08/13/23 Range/Units 00:46 02:44 WBC (3.8-10.6) k/uL Neutrophils # (1.3-7.7) k/uL BUN (7-17) mg/dL Glucose (74-99) mg/dL POC Glucose (mg/dL) 156 H (70-110) mg/dL Total Bilirubin (0.2-1.3) mg/dL AST (14-36) U/L ALT (4-34) U/L Alkaline Phosphatase (38-126) U/L Urine Appearance Cloudy H (Clear) Urine Nitrite Positive H (Negative) Ur Squamous Epith Cells 9 H (0-4) /hpf Urine Bacteria Many H (None) /hpf Urine Mucus Rare H (None) /hpf Comments: ltrasound of the gallbladder which was reported as it is suboptimal nondiagnostic study, gallbladder not distinctly seen however the common bile duct was within normal limits. Liver heterogeneous with reported dirty shadowin g near gallbladder area, could represent pneumobilia versus bowel gas. She also had a CT of the abdomen and pelvis that reports no bowel obstruction. No significant acute findings seen to account for patient's clinical symptoms. Assessment and Plan (1) Transaminitis Narrative/Plan: 67-year-old morbidly obese patient came in for abdominal pain mostly in the right upper quadrant some with in the epigastric region after eating that then subsides. States it is not constant. No associated nausea or vomiting. She has a history of elevated liver enzymes likely secondary to fatty liver. She had a CAT scan and ultrasound both relatively benign other than fatty liver. Unclear etiology transaminitis may be secondary to underlying fatty liver disease however need to consider other possible etiologies such as gallbladder disease or CBD obstruction. MRCP will be ordered. Further recommendations forthcoming based on findings. Current Visit: Yes Status: Acute Code(s): R74.01 - ELEVATION OF LEVELS OF LIVER TRANSAMINASE LEVELS SNOMED Code(s): 389139914 (2) Abdominal pain Current Visit: Yes Status: Acute Code(s): R10.9 - UNSPECIFIED ABDOMINAL PAIN SNOMED Code(s): 19817738 (3) Morbid obesity Current Visit: Yes Status: Acute Code(s): E66.01 - MORBID (SEVERE) OBESITY DUE TO EXCESS CALORIES SNOMED Code(s): 371714688 (4) Urinary tract infection Current Visit: Yes Status: Acute Code(s): N39.0 - URINARY TRACT INFECTION, SITE NOT SPECIFIED SNOMED Code(s): 45584285 Plan: 1. Continue symptomatic and supportive care 2. Keep n.p.o. 3. MRCP ordered stat 4. Daily CBC, CMP 5. Recommend weight loss 6. Further recommendations forthcoming based on MRCP results. If MRCP positive for CBD obstruction patient will need to be transferred to a tertiary center for GI services as GI will not be available after today. Thank you for this consultation, we will sign off at this time. Dr. Mary Moeller I agree with the dictator's note, documented as a scribe by Ivy Andrew.
[2023-08-13] MEDS ORDERED: PANTOPRAZOLE 40 MG TABLET PO SCH (12:30)
--- NOTE | 2023-08-13 12:31 | P.HPIM ---
History of Present Illness H&P Date: 08/13/23 Chief Complaint: Abdominal pain * 67-year-old patient with past medical history significant for hypothyroid, history of hypertension, hyperlipidemia, osteoarthritis, history of trigeminal neuralgia presents to the emergency department with complaints of right upper quadrant and epigastric abdominal pain. Patient had symptom onset about 5 days prior to admission. Patient states every time she eats she has postprandial epigastric abdominal pain and complains of fullness. Patient states she had significant discomfort in right upper quadrant and decided come to the emergency for further evaluation. Patient has also been complaining of yellow discoloration to the stool as well as increase in greasy stool. Patient states her pain improved by the time presentation to the ER. She denies associated fever, chills she does complain of nausea however patient did not vomit * Workup in ER included CBC showed WBC 13.9 hemoglobin 14.4 platelet count of 192, serum chemistry sodium 139 potassium 4.2 BUN 22 creatinine 0.88 glucose 121, bilirubin of 1.4 AST 470 ALT 245 lipase of 95 * Urinalysis obtained in ER showed cloudy urine, positive nitrite, squamous epithelial cells noted * Patient had ultrasound right upper quadrant/gallbladder ordered which showed heterogenous liver gallbladder not clearly visible, cyst noted in right kidney. CT abdomen pelvis was obtained which showed no bowel obstruction, no significant findings seen to show patient's symptoms. Liver remains heterozygous hypodense fatty infiltration noted in liver pancreas no abnormality noted exophytic 4.2 cm simple appearing cyst noted right kidney * Patient to be admitted to medical floor with consultation from gastroenterology and general surgery further evaluation REVIEW OF SYSTEMS: Nausea, abdominal pain, epigastric pain CONSTITUTIONAL: No fever, no malaise, no fatigue. HEENT: No recent visual problems or hearing problems. Denied any sore throat. CARDIOVASCULAR: No chest pain, orthopnea, PND, no palpitations, no syncope. PULMONARY: No shortness of breath, no cough, no hemoptysis. GASTROINTESTINAL: Nausea, abdominal pain, epigastric pain NEUROLOGICAL: No headaches, no weakness, no numbness. HEMATOLOGICAL: Denies any bleeding or petechiae. GENITOURINARY: Denies any burning micturition, frequency, or urgency. MUSCULOSKELETAL/RHEUMATOLOGICAL: Denies any joint pain, swelling, or any muscle pain. ENDOCRINE: Denies any polyuria or polydipsia. PHYSICAL EXAMINATION: GENERAL: The patient is alert and oriented x3, obese, ill appearance, nasal cannula in place HEENT: Pupils are round and equally reacting to light. EOMI. CARDIOVASCULAR: S1 and S2 present. No murmurs, rubs, or gallops. PULMONARY: Chest is clear to auscultation, no wheezing or crackles. ABDOMEN: Soft, tenderness right upper quadrant MUSCULOSKELETAL: No joint swelling or deformity. EXTREMITIES: No cyanosis, clubbing, or pedal edema. NEUROLOGICAL: Gross neurological examination did not reveal any focal deficits. SKIN: No rashes. Past Medical History Past Medical History: Asthma, GERD/Reflux, Hyperlipidemia, Osteoarthritis (OA), Thyroid Disorder Additional Past Medical History / Comment(s): TRIGEMINAL NEURALGIA, LT EYE keratoconjuntivitis sicca. CHANGE IN BOWEL HABITS-LOOSE STOOLS SINCE AUG 2021. HYPOGLYCEMIC History of Any Multi-Drug Resistant Organisms: None Reported Past Surgical History: No Surgical Hx Reported Additional Past Surgical History / Comment(s): BILAT cataracts, dental extraction. EGD Past Anesthesia/Blood Transfusion Reactions: No Reported Reaction Past Psychological History: Anxiety, Depression Smoking Status: Current every day smoker Past Alcohol Use History: None Reported Past Drug Use History: None Reported - Past Family History Mother Additional Family Medical History / Comment(s): ADOPTED Medications and Allergies Home Medications Medication Instructions Recorded Confirmed Type Aspirin 81 mg PO HS 11/09/13 08/13/23 History Levothyroxine Sodium [Synthroid] 125 mcg PO MOTUTHFRSA 11/09/13 08/13/23 History Montelukast Sodium [Singulair] 10 mg PO DAILY 11/09/13 08/13/23 History Lansoprazole [Prevacid] 30 mg PO DAILY 12/03/21 08/13/23 History [place]-3 Fatty Acids/Fish Oil [Fish 1 cap PO DAILY 12/03/21 08/13/23 History Oil 1,000 mg Softgel] Simethicone 180 mg PO BID 12/03/21 08/13/23 History carBAMazepine [TEGretol] 200 mg PO BID 12/03/21 08/13/23 History hydroCHLOROthiazide [Hydrodiuril] 25 mg PO DAILY 12/03/21 08/13/23 History Acetaminophen-Codeine 300-30mg 1 tab PO Q8H PRN 08/13/23 08/13/23 History [Tylenol w/codeine #3] Cholecalciferol [Vitamin D3 (25 50 mcg PO BID 08/13/23 08/13/23 History Mcg = 1000 Iu)] Cyanocobalamin [Vitamin B-12] 500 mcg PO DAILY 08/13/23 08/13/23 History Levothyroxine Sodium [Synthroid] 250 mcg PO SUWE 08/13/23 08/13/23 History Loratadine-Pseudoeph 10-240 mg 1 tab PO DAILY 08/13/23 08/13/23 History [Claritin-D 24 Hour] Ofloxacin 0.3% Ophth Soln [Ocuflox 1 drop LEFT EYE QID 08/13/23 08/13/23 History Ophth Soln] Pregabalin [Lyrica] 150 mg PO BID 08/13/23 08/13/23 History Propylene Glycol [Systane Complete] 1 drop BOTH EYES QID PRN 08/13/23 08/13/23 History Allergies Allergy/AdvReac Type Severity Reaction Status Date / Time Penicillins Allergy Unknown Verified 08/13/23 07:25 Childhood Sulfa (Sulfonamide Allergy Rash/Hives Verified 08/13/23 07:25 Antibiotics) Physical Exam Vitals: Vital Signs Temp Pulse Resp BP Pulse Ox 08/13/23 08:14 65 18 99/46 94 L 08/13/23 06:30 99.8 F H 105 H 19 119/54 94 L 08/13/23 05:00 118 H 18 119/40 97 08/13/23 04:00 99.9 F H 125 H 15 121/44 98 08/13/23 02:00 99.1 F 120 H 24 138/59 96 08/13/23 00:00 99.0 F 89 18 143/54 98 08/12/23 22:44 99.4 F 91 24 173/68 95 Intake and Output 08/12/23 08/13/23 08/13/23 22:59 06:59 14:59 Other: # Voids 1 Weight 130.635 kg Results CBC & Chem 7: 08/12/23 23:55 08/12/23 23:55 Labs: Abnormal Lab Results - Last 24 Hours (Table) 08/12/23 08/12/23 08/13/23 Range/Units 23:55 23:55 00:36 WBC 13.9 H (3.8-10.6) k/uL Neutrophils # 11.6 H (1.3-7.7) k/uL BUN 22 H (7-17) mg/dL Glucose 121 H (74-99) mg/dL POC Glucose (mg/dL) 125 H (70-110) mg/dL Total Bilirubin 1.4 H (0.2-1.3) mg/dL AST 470 H (14-36) U/L ALT 245 H (4-34) U/L Alkaline Phosphatase 147 H (38-126) U/L Urine Appearance (Clear) Urine Nitrite (Negative) Ur Squamous Epith Cells (0-4) /hpf Urine Bacteria (None) /hpf Urine Mucus (None) /hpf 08/13/23 08/13/23 Range/Units 00:46 02:44 WBC (3.8-10.6) k/uL Neutrophils # (1.3-7.7) k/uL BUN (7-17) mg/dL Glucose (74-99) mg/dL POC Glucose (mg/dL) 156 H (70-110) mg/dL Total Bilirubin (0.2-1.3) mg/dL AST (14-36) U/L ALT (4-34) U/L Alkaline Phosphatase (38-126) U/L Urine Appearance Cloudy H (Clear) Urine Nitrite Positive H (Negative) Ur Squamous Epith Cells 9 H (0-4) /hpf Urine Bacteria Many H (None) /hpf Urine Mucus Rare H (None) /hpf Assessment and Plan Assessment: Assessment and plan * Transaminitis rule out acute cholecystitis * History of hypertension * History of trigeminal neuralgia * Hypothyroid * Right renal cyst * In regards to transaminitis, MRCP ordered gastroenterology and general surgery consulted continue patient on Rocephin and Flagyl, follow-up on CBC inflammatory markers patient n.p.o., pain control, nausea control with Zofran * In regards to history of hypertension, hydrochlorothiazide on hold continue patient on as needed IV hydralazine * In regards to hypothyroid continue patient on Synthyroid * Regards to history of trigeminal neuralgia continue patient on Tegretol * Regards to right renal cyst patient only outpatient follow-up with PCP * CODE STATUS is full code Time with Patient: Greater than 30
[2023-08-13] MEDS ORDERED: OFLOXACIN 0.3% OPHTH DROPS 5 ML BOTTLE LEFT EYE SCH (13:00)
--- NOTE | 2023-08-13 13:16 | P.GSCN ---
History of Present Illness Consult date: 08/13/23 History of present illness: CHIEF COMPLAINT: Abdominal pain HISTORY OF PRESENT ILLNESS: This is a 67-year-old female who presented to the hospital with complaints of epigastric and right upper quadrant abdominal pain for the past 5 days. She reports that pain worsened last night. Pain is usually worse after eating. She has been nauseous. She is currently denies any abdominal pain. She has not required any pain medication. She reports that her stools have been yellow and loose. She had a low-grade temp of 99.8 has been mildly tachycardic with leukocytosis. Liver enzymes also elevated. CT scan abdomen pelvis no bowel obstruction. No significant acute findings. Gallbladder ultrasound suboptimal study due to patient's body habitus. Patient has been seen by GI service and they have ordered an MRCP for possible choledocholithiasis. Patient does have a known history of elevated LFTs due to her fatty liver disease. PAST MEDICAL HISTORY: See below PAST SURGICAL HISTORY: See below MEDICATIONS: See below ALLERGIES: See below SOCIAL HISTORY: No illicit drug use. REVIEW OF SYSTEMS: CONSTITUTIONAL: Denies fever or chills. HEENT: Denies blurred vision, vision changes, or eye pain. Denies hemoptysis CARDIOVASCULAR: Denies chest pain or pressure. RESPIRATORY: No shortness of breath. GASTROINTESTINAL: See HPI for pertinent findings HEMATOLOGIC: Denies bleeding disorders. GENITOURINARY: Denies any blood in urine or increased urinary frequency. SKIN: Denies pruitis. Denies rash. PHYSICAL EXAM: VITAL SIGNS: Reviewed GENERAL: Well-developed in no acute distress. HEENT: No sclera icterus. ABDOMEN: Soft. Obese. Nondistended. Nontender NEUROLOGIC: Alert and oriented. Cranial nerves II through XII grossly intact. LABORATORY DATA: WBC 13.9 Hgb 14.4 platelets 192 Sodium 139 potassium 4.2 creatinine 0.88 Lactic acid 2.0 Total bilirubin 1.4 AST 470 ALT 245 alk phos 147 Lipase 95 Urinalysis positive for nitrates Hepatitis panel nonreactive IMAGING: CT scan abdomen pelvis no bowel obstruction. No significant acute findings. Gallbladder ultrasound reports suboptimal nondiagnostic study ASSESSMENT: 1. Right upper quadrant and epigastric abdominal pain after eating now resolved 2. Elevated liver enzymes 3. History of fatty liver 4. Leukocytosis PLAN: -Continue antibiotics -Follow-up on MRCP results. Agree with GI service if MRCP positive for CBD stone patient will need to be transferred to tertiary care center. No GI service available this weekend or next week -Continue supportive care -Continue IV fluids -Continue to monitor LFTs -Continue to monitor CBC Physician Retail Sales Representative note has been reviewed by physician. Signing provider agrees with the documented findings, assessment, and plan of care. I have personally seen and examined the patient, reviewed the [facility]HALT DAUBER /PAs history, exam and MDM and agree with the assessment and plan as written. Based on total visit time, I have performed more than 50% of the visit. As above: Patient with elevated liver enzymes. MRCP was ordered. Appreciate GI input. Await MRI findings. Past Medical History Past Medical History: Asthma, GERD/Reflux, Hyperlipidemia, Osteoarthritis (OA), Thyroid Disorder Additional Past Medical History / Comment(s): TRIGEMINAL NEURALGIA, LT EYE keratoconjuntivitis sicca. CHANGE IN BOWEL HABITS-LOOSE STOOLS SINCE AUG 2021. HYPOGLYCEMIC History of Any Multi-Drug Resistant Organisms: None Reported Past Surgical History: No Surgical Hx Reported Additional Past Surgical History / Comment(s): BILAT cataracts, dental extraction. EGD Past Anesthesia/Blood Transfusion Reactions: No Reported Reaction Past Psychological History: Anxiety, Depression Smoking Status: Current every day smoker Past Alcohol Use History: None Reported Past Drug Use History: None Reported - Past Family History Mother Additional Family Medical History / Comment(s): ADOPTED Medications and Allergies Home Medications Medication Instructions Recorded Confirmed Type Aspirin 81 mg PO HS 11/09/13 08/13/23 History Levothyroxine Sodium [Synthroid] 125 mcg PO MOTUTHFRSA 11/09/13 08/13/23 History Montelukast Sodium [Singulair] 10 mg PO DAILY 11/09/13 08/13/23 History Lansoprazole [Prevacid] 30 mg PO DAILY 12/03/21 08/13/23 History [place]-3 Fatty Acids/Fish Oil [Fish 1 cap PO DAILY 12/03/21 08/13/23 History Oil 1,000 mg Softgel] Simethicone 180 mg PO BID 12/03/21 08/13/23 History carBAMazepine [TEGretol] 200 mg PO BID 12/03/21 08/13/23 History hydroCHLOROthiazide [Hydrodiuril] 25 mg PO DAILY 12/03/21 08/13/23 History Acetaminophen-Codeine 300-30mg 1 tab PO Q8H PRN 08/13/23 08/13/23 History [Tylenol w/codeine #3] Cholecalciferol [Vitamin D3 (25 50 mcg PO BID 08/13/23 08/13/23 History Mcg = 1000 Iu)] Cyanocobalamin [Vitamin B-12] 500 mcg PO DAILY 08/13/23 08/13/23 History Levothyroxine Sodium [Synthroid] 250 mcg PO SUWE 08/13/23 08/13/23 History Loratadine-Pseudoeph 10-240 mg 1 tab PO DAILY 08/13/23 08/13/23 History [Claritin-D 24 Hour] Ofloxacin 0.3% Ophth Soln [Ocuflox 1 drop LEFT EYE QID 08/13/23 08/13/23 History Ophth Soln] Pregabalin [Lyrica] 150 mg PO BID 08/13/23 08/13/23 History Propylene Glycol [Systane Complete] 1 drop BOTH EYES QID PRN 08/13/23 08/13/23 History Allergies Allergy/AdvReac Type Severity Reaction Status Date / Time Penicillins Allergy Unknown Verified 08/13/23 07:25 Childhood Sulfa (Sulfonamide Allergy Rash/Hives Verified 08/13/23 07:25 Antibiotics) Surgical - Exam Vital Signs Temp Pulse Resp BP Pulse Ox 99.4 F 91 24 173/68 95 08/12/23 22:44 08/12/23 22:44 08/12/23 22:44 08/12/23 22:44 08/12/23 22:44 Results - Labs 08/12/23 23:55 08/12/23 23:55 Abnormal Lab Results - Last 24 Hours (Table) 08/12/23 08/12/23 08/13/23 Range/Units 23:55 23:55 00:36 WBC 13.9 H (3.8-10.6) k/uL Neutrophils # 11.6 H (1.3-7.7) k/uL BUN 22 H (7-17) mg/dL Glucose 121 H (74-99) mg/dL POC Glucose (mg/dL) 125 H (70-110) mg/dL Total Bilirubin 1.4 H (0.2-1.3) mg/dL AST 470 H (14-36) U/L ALT 245 H (4-34) U/L Alkaline Phosphatase 147 H (38-126) U/L Urine Appearance (Clear) Urine Nitrite (Negative) Ur Squamous Epith Cells (0-4) /hpf Urine Bacteria (None) /hpf Urine Mucus (None) /hpf 08/13/23 08/13/23 Range/Units 00:46 02:44 WBC (3.8-10.6) k/uL Neutrophils # (1.3-7.7) k/uL BUN (7-17) mg/dL Glucose (74-99) mg/dL POC Glucose (mg/dL) 156 H (70-110) mg/dL Total Bilirubin (0.2-1.3) mg/dL AST (14-36) U/L ALT (4-34) U/L Alkaline Phosphatase (38-126) U/L Urine Appearance Cloudy H (Clear) Urine Nitrite Positive H (Negative) Ur Squamous Epith Cells 9 H (0-4) /hpf Urine Bacteria Many H (None) /hpf Urine Mucus Rare H (None) /hpf Diabetes panel 08/12/23 Range/Units 23:55 Sodium 139 (137-145) mmol/L Potassium 4.2 (3.5-5.1) mmol/L Chloride 104 (98-107) mmol/L Carbon Dioxide 27 (22-30) mmol/L BUN 22 H (7-17) mg/dL Creatinine 0.88 (0.52-1.04) mg/dL Glucose 121 H (74-99) mg/dL Calcium 9.3 (8.4-10.2) mg/dL AST 470 H (14-36) U/L ALT 245 H (4-34) U/L Alkaline Phosphatase 147 H (38-126) U/L Total Protein 7.4 (6.3-8.2) g/dL Albumin 4.3 (3.5-5.0) g/dL Calcium panel 08/12/23 Range/Units 23:55 Calcium 9.3 (8.4-10.2) mg/dL Albumin 4.3 (3.5-5.0) g/dL Pituitary panel 08/12/23 Range/Units 23:55 Sodium 139 (137-145) mmol/L Potassium 4.2 (3.5-5.1) mmol/L Chloride 104 (98-107) mmol/L Carbon Dioxide 27 (22-30) mmol/L BUN 22 H (7-17) mg/dL Creatinine 0.88 (0.52-1.04) mg/dL Glucose 121 H (74-99) mg/dL Calcium 9.3 (8.4-10.2) mg/dL Adrenal panel 08/12/23 Range/Units 23:55 Sodium 139 (137-145) mmol/L Potassium 4.2 (3.5-5.1) mmol/L Chloride 104 (98-107) mmol/L Carbon Dioxide 27 (22-30) mmol/L BUN 22 H (7-17) mg/dL Creatinine 0.88 (0.52-1.04) mg/dL Glucose 121 H (74-99) mg/dL Calcium 9.3 (8.4-10.2) mg/dL Total Bilirubin 1.4 H (0.2-1.3) mg/dL AST 470 H (14-36) U/L ALT 245 H (4-34) U/L Alkaline Phosphatase 147 H (38-126) U/L Total Protein 7.4 (6.3-8.2) g/dL Albumin 4.3 (3.5-5.0) g/dL
[2023-08-13 15:36] VITALS: BP 151/69; PULSE 83; RESP 16; TEMP 98.1
[2023-08-13] MEDS ORDERED: CHOLECALCIFEROL 25 MCG (1000 IU) TABLET PO SCH (21:00)
[2023-08-14] MEDS ORDERED: CYANOCOBALAMIN 500 MCG TAB PO SCH (09:00)
--- NOTE | 2023-08-14 10:43 | P.DS ---
Providers Date of admission: 08/13/23 04:41 Expected date of discharge: 08/13/23 Attending physician: Sebastian Kaufman Consults: 08/13/23 04:41 Consult Physician Routine Consulting Provider: Chelle Moeller Consult Reason/Comments: RUQ pain, postprandial pain, transaminitis Do you want consulting provider notified?: Yes, Notify in am 08/13/23 09:16 Consult Physician Routine Consulting Provider: Kalia More Consult Reason/Comments: Postprandial right upper quadrant abdominal pain evaluate for cholecystitis Do you want consulting provider notified?: Yes Primary care physician: [facility] Hospital Course: * 67-year-old patient with past medical history significant for hypothyroid, history of hypertension, hyperlipidemia, osteoarthritis, history of trigeminal neuralgia presents to the emergency department with complaints of right upper quadrant and epigastric abdominal pain. Patient had symptom onset about 5 days prior to admission. Patient states every time she eats she has postprandial epigastric abdominal pain and complains of fullness. Patient states she had significant discomfort in right upper quadrant and decided come to the emergency for further evaluation. Patient has also been complaining of yellow discoloration to the stool as well as increase in greasy stool. Patient states her pain improved by the time presentation to the ER. She denies associated fever, chills she does complain of nausea however patient did not vomit * Workup in ER included CBC showed WBC 13.9 hemoglobin 14.4 platelet count of 192, serum chemistry sodium 139 potassium 4.2 BUN 22 creatinine 0.88 glucose 121, bilirubin of 1.4 AST 470 ALT 245 lipase of 95 * Urinalysis obtained in ER showed cloudy urine, positive nitrite, squamous epithelial cells noted * Patient had ultrasound right upper quadrant/gallbladder ordered which showed heterogenous liver gallbladder not clearly visible, cyst noted in right kidney. CT abdomen pelvis was obtained which showed no bowel obstruction, no significant findings seen to show patient's symptoms. Liver remains heterozygous hypodense fatty infiltration noted in liver pancreas no abnorm ality noted exophytic 4.2 cm simple appearing cyst noted right kidney * Patient to be admitted to medical floor with consultation from gastroenterology and general surgery further evaluation * Patient followed up later in the day and requested to leave AGAINST MEDICAL ADVICE. Risk of leaving AGAINST MEDICAL ADVICE was notified to the patient. Patient understands she states she does not have Prevacid in the hospital also patient states her does not have seizure medications. Patient was explained that she is at the high risk of jeopardizing her health to the point that she can have severe sepsis and from it. Workup has already been started to rule out cholangitis versus cholecystitis as well. Patient completely understands she has medical decision-making capacity however she d ecided to leave AGAINST MEDICAL ADVICE this was discussed with patient nursing staff as well. Later on blood cultures came back positive for E. coli phone call was made. And patient decided to come back to the emergency on 08/14/2019 PHYSICAL EXAMINATION: GENERAL: The patient is alert and oriented x3, obese, ill appearance, nasal cannula in place HEENT: Pupils are round and equally reacting to light. EOMI. CARDIOVASCULAR: S1 and S2 present. No murmurs, rubs, or gallops. PULMONARY: Chest is clear to auscultation, no wheezing or crackles. ABDOMEN: Soft, tenderness right upper quadrant MUSCULOSKELETAL: No joint swelling or deformity. EXTREMITIES: No cyanosis, clubbing, or pedal edema. NEUROLOGICAL: Gross neurological examination did not reveal any focal deficits. SKIN: No rashes. Assessment and plan * Transaminitis rule out acute cholecystitis * Gram-negative bacteremia * History of hypertension * History of trigeminal neuralgia * Hypothyroid * Right renal cyst Left AGAINST MEDICAL ADVICE Patient Condition at Discharge: Poor Plan - Discharge Summary New Discharge Prescriptions: No Action Montelukast Sodium [Singulair] 10 mg PO DAILY Aspirin 81 mg PO HS Levothyroxine Sodium [Synthroid] 125 mcg PO MOTUTHFR [place]-3 Fatty Acids/Fish Oil [Fish Oil 1,000 mg Softgel] 1 cap PO DAILY Cyanocobalamin [Vitamin B-12] 500 mcg PO DAILY Levothyroxine Sodium [Synthroid] 250 mcg PO SUWE Ofloxacin 0.3% Ophth Soln [Ocuflox Ophth Soln] 1 drop LEFT EYE QID Acetaminophen-Codeine 300-30mg [Tylenol w/codeine #3] 1 tab PO Q8H PRN PRN Reason: Pain carBAMazepine [TEGretol] 200 mg PO BID hydroCHLOROthiazide [Hydrodiuril] 25 mg PO DAILY Lansoprazole [Prevacid] 30 mg PO DAILY Simethicone 180 mg PO BID Cholecalciferol [Vitamin D3 (25 Mcg = 1000 Iu)] 50 mcg PO BID Loratadine-Pseudoeph 10-240 mg [Claritin-D 24 Hour] 1 tab PO DAILY Propylene Glycol [Systane Complete] 1 drop BOTH EYES QID PRN PRN Reason: Dry Eye(S) Pregabalin [Lyrica] 150 mg PO BID Discharge Medication List Aspirin 81 mg PO HS 11/09/13 [History] Levothyroxine Sodium [Synthroid] 125 mcg PO MOTUTHFRSA 11/09/13 [History] Montelukast Sodium [Singulair] 10 mg PO DAILY 11/09/13 [History] Lansoprazole [Prevacid] 30 mg PO DAILY 12/03/21 [History] [place]-3 Fatty Acids/Fish Oil [Fish Oil 1,000 mg Softgel] 1 cap PO DAILY 12/03/21 [History] Simethicone 180 mg PO BID 12/03/21 [History] carBAMazepine [TEGretol] 200 mg PO BID 12/03/21 [History] hydroCHLOROthiazide [Hydrodiuril] 25 mg PO DAILY 12/03/21 [History] Acetaminophen-Codeine 300-30mg [Tylenol w/codeine #3] 1 tab PO Q8H PRN 08/13/23 [History] Cholecalciferol [Vitamin D3 (25 Mcg = 1000 Iu)] 50 mcg PO BID 08/13/23 [History] Cyanocobalamin [Vitamin B-12] 500 mcg PO DAILY 08/13/23 [History] Levothyroxine Sodium [Synthroid] 250 mcg PO SUWE 08/13/23 [History] Loratadine-Pseudoeph 10-240 mg [Claritin-D 24 Hour] 1 tab PO DAILY 08/13/23 [History] Ofloxacin 0.3% Ophth Soln [Ocuflox Ophth Soln] 1 drop LEFT EYE QID 08/13/23 [History] Pregabalin [Lyrica] 150 mg PO BID 08/13/23 [History] Propylene Glycol [Systane Complete] 1 drop BOTH EYES QID PRN 08/13/23 [History] Follow up Appointment(s)/Referral(s): Jeremiah Ma MD [Primary Care Provider] - 1-2 days Discharge Disposition: LEFT AGAINST MEDICAL ADVICE
[2023-08-15] MEDS ORDERED: LEVOTHYROXINE 125 MCG TAB PO SCH (06:30)
== END 2023-08-13 15:26 | disposition left against medical advice (07) ==
LOC: EC 22:41 → 6NMEDSUR 08-13 04:41 → 5NMEDONC 08-13 06:43 → 6NMEDSUR 08-13 06:53 → 5NMEDONC 08-13 06:55
PROVIDERS: ADMIT Hospitalist; ATTEND Hospitalist
DX: R74.01 Elevation of levels of liver transaminase levels (principal); R78.81 Bacteremia; B96.89 Other specified bacterial agents as the cause of diseases classified elsewhere; I10 Essential (primary) hypertension; G50.0 Trigeminal neuralgia; E03.9 Hypothyroidism, unspecified; N28.1 Cyst of kidney, acquired; Z53.29 Procedure and treatment not carried out because of patient's decision for other reasons; N39.0 Urinary tract infection, site not specified; R10.9 Unspecified abdominal pain; K76.0 Fatty (change of) liver, not elsewhere classified; K21.9 Gastro-esophageal reflux disease without esophagitis; E78.5 Hyperlipidemia, unspecified; J45.909 Unspecified asthma, uncomplicated; F32.A Depression, unspecified; F41.9 Anxiety disorder, unspecified; D72.829 Elevated white blood cell count, unspecified; F17.200 Nicotine dependence, unspecified, uncomplicated; E66.01 Morbid (severe) obesity due to excess calories; Z68.41 Body mass index [BMI] 40.0-44.9, adult; Z79.82 Long term (current) use of aspirin; Z79.890 Hormone replacement therapy; Z79.899 Other long term (current) drug therapy; Z88.0 Allergy status to penicillin; Z88.2 Allergy status to sulfonamides
CPT/HCPCS: 96365; 96366; 96375; 99285; 36415; 80053; 80074; 83605; 83690; 85025; 81001; 87040; 87077; 87186; 76705; 74178; G0378 ×2; J2060; J0696; Q9967; J1836

== ENCOUNTER 2023-08-14 08:10 | Emergency (ER) | payer MEDICARE, OTHER ==
--- NOTE | 2023-08-14 08:30 | ED ---
Recheck HPI - General Chief Complaint: Recheck/Abnormal Lab/Rx Stated Complaint: Abn Labs Time Seen by Provider: 08/14/23 08:25 Source: patient, RN notes reviewed Mode of arrival: ambulatory Limitations: no limitations - History of Present Illness Initial Comments: This is a 67 year old female who presents to the emergency department for abnormal blood cultures. Patient was admitted here yesterday for questionable cholecystitis, and an MRCP was ordered. However, she ended up having to leave AMA because her is disabled and she has nobody to care for him. She then received a call this morning that she had blood cultures that were positive for E. coli, and she needed to return to the emergency department immediately. States that she is willing to come to the emergency department every day for antibiotics if needed, but cannot stay overnight due to lack of care for her . Her abdominal pain has resolved at this point and she is currently asymptomatic. MD Complaint: abnormal lab - Related Data Home Medications Medication Instructions Recorded Confirmed Aspirin 81 mg PO HS 11/09/13 08/13/23 Levothyroxine Sodium [Synthroid] 125 mcg PO MOTUTHFRSA 11/09/13 08/13/23 Montelukast Sodium [Singulair] 10 mg PO DAILY 11/09/13 08/13/23 Lansoprazole [Prevacid] 30 mg PO DAILY 12/03/21 08/13/23 [place]-3 Fatty Acids/Fish Oil [Fish 1 cap PO DAILY 12/03/21 08/13/23 Oil 1,000 mg Softgel] Simethicone 180 mg PO BID 12/03/21 08/13/23 carBAMazepine [TEGretol] 200 mg PO BID 12/03/21 08/13/23 hydroCHLOROthiazide [Hydrodiuril] 25 mg PO DAILY 12/03/21 08/13/23 Acetaminophen-Codeine 300-30mg 1 tab PO Q8H PRN 08/13/23 08/13/23 [Tylenol w/codeine #3] Cholecalciferol [Vitamin D3 (25 50 mcg PO BID 08/13/23 08/13/23 Mcg = 1000 Iu)] Cyanocobalamin [Vitamin B-12] 500 mcg PO DAILY 08/13/23 08/13/23 Levothyroxine Sodium [Synthroid] 250 mcg PO SUWE 08/13/23 08/13/23 Loratadine-Pseudoeph 10-240 mg 1 tab PO DAILY 08/13/23 08/13/23 [Claritin-D 24 Hour] Ofloxacin 0.3% Ophth Soln [Ocuflox 1 drop LEFT EYE QID 08/13/23 08/13/23 Ophth Soln] Pregabalin [Lyrica] 150 mg PO BID 08/13/23 08/13/23 Propylene Glycol [Systane Complete] 1 drop BOTH EYES QID PRN 08/13/23 08/13/23 Previous Rx's Medication Instructions Recorded Ciprofloxacin HCl [Cipro] 500 mg PO BID 14 Days #28 tab 08/14/23 Allergies Allergy/AdvReac Type Severity Reaction Status Date / Time Penicillins Allergy Unknown Verified 08/14/23 08:18 Childhood Sulfa (Sulfonamide Allergy Rash/Hives Verified 08/14/23 08:18 Antibiotics) Review of Systems ROS Statement: Those systems with pertinent positive or pertinent negative responses have been documented in the HPI. ROS Other: All systems not noted in ROS Statement are negative. Past Medical History Past Medical History: Asthma, GERD/Reflux, Hyperlipidemia, Osteoarthritis (OA), Thyroid Disorder Additional Past Medical History / Comment(s): TRIGEMINAL NEURALGIA, LT EYE keratoconjuntivitis sicca. CHANGE IN BOWEL HABITS-LOOSE STOOLS SINCE AUG 2021. HYPOGLYCEMIC History of Any Multi-Drug Resistant Organisms: None Reported Past Surgical History: No Surgical Hx Reported Additional Past Surgical History / Comment(s): BILAT cataracts, dental extraction. EGD Past Anesthesia/Blood Transfusion Reactions: No Reported Reaction Past Psychological History: Anxiety, Depression Smoking Status: Current every day smoker Past Alcohol Use History: None Reported Past Drug Use History: None Reported - Past Family History Mother Additional Family Medical History / Comment(s): ADOPTED General Exam - General Exam Comments Initial Comments: Visual Physical Exam Vital signs reviewed General: Well-appearing, nontoxic, no acute distress. Head: Normocephalic, atraumatic Eyes: PERRLA, EOMI ENT: Airway patent Chest: Nonlabored breathing Skin: No visual rash, normal skin tone Neuro: Alert and oriented 3 Musculoskeletal: No gross abnormalities Limitations: no limitations General appearance: alert, in no apparent distress Head exam: Present: atraumatic, normocephalic, normal inspection Respiratory exam: Present: normal lung sounds bilaterally. Absent: respiratory distress, wheezes, rales, rhonchi, stridor Cardiovascular Exam: Present: regular rate, normal rhythm, normal heart sounds. Absent: systolic murmur, diastolic murmur, rubs, gallop, clicks GI/Abdominal exam: Present: soft, normal bowel sounds. Absent: distended, tenderness, guarding, rebound, rigid Neurological exam: Present: alert, oriented X3, CN II-XII intact Psychiatric exam: Present: normal affect, normal mood Skin exam: Present: warm, dry, intact, normal color. Absent: rash Course Vital Signs 08/14/23 08/14/23 08:14 12:30 Temperature 98 F 98.4 F Pulse Rate 88 82 Respiratory 18 17 Rate Blood Pressure 138/67 130/58 O2 Sat by Pulse 96 98 Oximetry Medical Decision Making - Medical Decision Making This is a 67-year-old female who presents to the emergency department for abnormal blood cultures. Was pt. sent in by a medical professional or institution? @ -Yes, the hospital contacted the patient regarding positive blood cultures. Did you speak to anyone other than the patient for history? @ -No Did you review nursing and triage notes? @ -Yes, and I agree, it is accurate with regards to the patient's symptoms. Were old charts reviewed? @ -Blood cultures obtained yesterday, both had positive preliminary results for gram-negative bacilli. Discharge summary from yesterday reviewed as well, and discussed that the patient did have a urinary tract infection as well as transaminitis. Imaging was unremarkable and they planned on ordering an MRCP to evaluate for signs of cholangitis versus cholecystitis. Patient however ended up leaving AMA. Differential Diagnosis? @ -Differential Abnormal Blood Cultures: Bacteremia, contamination, this is not meant to be an all-inclusive list. EKG interpreted by me (3pts min.)? @ -Not obtained X-rays interpreted by me (1pt min.)? @ -Not obtained CT interpreted by me (1pt min.)? @ -Not obtained U/S interpreted by me (1pt. min.)? @ -Not obtained What testing was considered but not performed? (CT, X-rays, U/S, labs)? Why? @ -None What meds were considered but not given? Why? @ -None Did you discuss the management of the patient with other professionals? @ -No Did you reconcile home meds? @ -No Was smoking cessation discussed for >3mins.? @ -I discussed smoking cessation for greater than 3 minutes. The risk of smoking were discussed with the patient including but not limited to risks of cancer, stroke, coronary artery disease and COPD. Also discussed with patient were multiple methods of quitting smoking. Lastly we discussed the financial cost of smoking. Was critical care preformed (if so, how long)? @ -No Were there social determinants of health that impacted care today? How? (Homelessness, low income, unemployed, alcoholism, drug addiction, transportation, low edu. Level, literacy, decrease access to med. care, fci, rehab)? @ -No Was there de-escalation of care discussed even if they declined? (Discuss DNR or withdrawal of care, Hospice)? @ -No What co-morbidities impacted this encounter? (DM, HTN, Smoking, COPD, CAD, Cancer, CVA, Hep., AIDS, mental health diagnosis, sleep apnea, morbid obesity)? @ -None Was patient admitted / discharged? @ -Lab work obtained revealing mild leukocytosis. Elevated liver enzymes are similar when compared with prior values from yesterday. I did review the blood cultures obtained from yesterday, and the preliminary report is positive for gram-negative bacilli. Culture and sensitivity report is not yet available. Discussed with the patient that bacteremia can be life-threatening and she needs to be admitted for IV antibiotics. However, patient states that her is disabled and there is no one else available to care for him, and she cannot stay in the hospital overnight. Patient subsequently signed out AGAINST MEDICAL ADVICE. She is capable of her own decision making and verbalizes understanding with regards to risks of morbidity and mortality associated with this. She was given 2 g of ceftriaxone and a prescription for ciprofloxacin was provided (we were going to start her on Keflex, which she used to tolerate, however the last time that she took it she broke out in hives). She is instructed to contact her primary care provider first thing Wednesday morning for a follow-up appointment and she was also given information to follow-up with Dr. Sutherland, general surgery, regarding her gallbladder. While she signed out AMA, we did discuss very strict return parameters and the patient expresses understanding. Undiagnosed new problem with uncertain prognosis? @ -None Drug Therapy requiring intensive monitoring for toxicity (Heparin, Nitro, Insulin, Cardizem)? @ -None Were any procedures done? @ -None Diagnosis/symptom? @ -E. coli bacteremia, transaminitis Acute, or Chronic, or Acute on Chronic? @ -Acute Uncomplicated (without systemic symptoms) or Complicated (systemic symptoms)? @ -Complicated Side effects of treatment? @ -None Exacerbation, Progression, or Severe Exacerbation] @ -Not applicable Poses a threat to life or bodily function? @ -Yes, can lead to sepsis and . This case was discussed in detail with the attending ED physician, Dr. Olivas. Presentation, findings, and treatment plan discussed in detail as well. - Lab Data Result diagrams: 08/14/23 09:08 08/14/23 09:08 Lab Results 08/14/23 08/14/23 08/14/23 Range/Units 09:08 09:08 09:08 WBC 11.0 H (3.8-10.6) k/uL RBC 4.93 (3.80-5.40) m/uL Hgb 13.8 (11.4-16.0) gm/dL Hct 42.6 (34.0-46.0) % MCV 86.4 (80.0-100.0) fL MCH 28.1 (25.0-35.0) pg MCHC 32.5 (31.0-37.0) g/dL RDW 14.3 (11.5-15.5) % Plt Count 157 (150-450) k/uL MPV 9.2 Neutrophils % 74 % Lymphocytes % 10 % Monocytes % 9 % Eosinophils % 5 % Basophils % 1 % Neutrophils # 8.1 H (1.3-7.7) k/uL Lymphocytes # 1.1 (1.0-4.8) k/uL Monocytes # 1.0 (0-1.0) k/uL Eosinophils # 0.5 (0-0.7) k/uL Basophils # 0.1 (0-0.2) k/uL Sodium 139 (137-145) mmol/L Potassium 3.6 (3.5-5.1) mmol/L Chloride 108 H (98-107) mmol/L Carbon Dioxide 24 (22-30) mmol/L Anion Gap 7 mmol/L BUN 19 H (7-17) mg/dL Creatinine 0.72 (0.52-1.04) mg/dL Est GFR (CKD-EPI)AfAm >90 (>60 ml/min/1.73 sqM) Est GFR (CKD-EPI)NonAf 89 (>60 ml/min/1.73 sqM) Glucose 130 H (74-99) mg/dL Plasma Lactic Acid Kevin 1.2 (0.7-2.0) mmol/L Calcium 9.0 (8.4-10.2) mg/dL Total Bilirubin 2.5 H (0.2-1.3) mg/dL AST 147 H (14-36) U/L ALT 254 H (4-34) U/L Alkaline Phosphatase 149 H (38-126) U/L Total Protein 6.4 (6.3-8.2) g/dL Albumin 3.6 (3.5-5.0) g/dL Urine Color Urine Appearance (Clear) Urine pH (5.0-8.0) Ur Specific [place] (1.001-1.035) Urine Protein (Negative) Urine Glucose (UA) (Negative) Urine Ketones (Negative) Urine Blood (Negative) Urine Nitrite (Negative) Urine Bilirubin (Negative) Urine Urobilinogen (<2.0) mg/dL Ur Leukocyte Esterase (Negative) Urine RBC (0-5) /hpf Urine WBC (0-5) /hpf Ur Squamous Epith Cells (0-4) /hpf Urine Bacteria (None) /hpf Urine Mucus (None) /hpf 08/14/23 Range/Units 10:22 WBC (3.8-10.6) k/uL RBC (3.80-5.40) m/uL Hgb (11.4-16.0) gm/dL Hct (34.0-46.0) % MCV (80.0-100.0) fL MCH (25.0-35.0) pg MCHC (31.0-37.0) g/dL RDW (11.5-15.5) % Plt Count (150-450) k/uL MPV Neutrophils % % Lymphocytes % % Monocytes % % Eosinophils % % Basophils % % Neutrophils # (1.3-7.7) k/uL Lymphocytes # (1.0-4.8) k/uL Monocytes # (0-1.0) k/uL Eosinophils # (0-0.7) k/uL Basophils # (0-0.2) k/uL Sodium (137-145) mmol/L Potassium (3.5-5.1) mmol/L Chloride (98-107) mmol/L Carbon Dioxide (22-30) mmol/L Anion Gap mmol/L BUN (7-17) mg/dL Creatinine (0.52-1.04) mg/dL Est GFR (CKD-EPI)AfAm (>60 ml/min/1.73 sqM) Est GFR (CKD-EPI)NonAf (>60 ml/min/1.73 sqM) Glucose (74-99) mg/dL Plasma Lactic Acid Kevin (0.7-2.0) mmol/L Calcium (8.4-10.2) mg/dL Total Bilirubin (0.2-1.3) mg/dL AST (14-36) U/L ALT (4-34) U/L Alkaline Phosphatase (38-126) U/L Total Protein (6.3-8.2) g/dL Albumin (3.5-5.0) g/dL Urine Color Dark Brown Urine Appearance Cloudy H (Clear) Urine pH 6.5 (5.0-8.0) Ur Specific [place] 1.031 (1.001-1.035) Urine Protein 1+ H (Negative) Urine Glucose (UA) Negative (Negative) Urine Ketones Negative (Negative) Urine Blood Negative (Negative) Urine Nitrite Negative (Negative) Urine Bilirubin 2+ H (Negative) Urine Urobilinogen 4.0 (<2.0) mg/dL Ur Leukocyte Esterase Trace H (Negative) Urine RBC 3 (0-5) /hpf Urine WBC 12 H (0-5) /hpf Ur Squamous Epith Cells 11 H (0-4) /hpf Urine Bacteria Rare H (None) /hpf Urine Mucus Many H (None) /hpf Disposition Clinical Impression: E coli bacteremia, Transaminitis, Nicotine dependence Disposition: LEFT AGAINST MEDICAL ADVICE Instructions (If sedation given, give patient instructions): Bacteremia (ED) Additional Instructions: Return to the emergency department with any new, worsening, or concerning symptoms, development of fever/chills, nausea, vomiting, or return of abdominal pain. Take the antibiotic as prescribed for [address] Ma's office first thing Wednesday morning for a follow up appointment. Contact Dr. Sutherland, general surgery, first thing Wednesday morning as well for a follow up appointment regarding the gallbladder. Prescriptions: Ciprofloxacin HCl [Cipro] 500 mg PO BID 14 Days #28 tab Is patient prescribed a controlled substance at d/c from ED?: No Referrals: Jeremiah Ma MD [Primary Care Provider] - 1-2 days Ata Sutherland MD [Medical Doctor] - 1-2 days Time of Disposition: 11:22
[2023-08-14 09:40] LABS: Basophils # (A) 0.1 k/uL (0-0.2); Basophils % (A) 1 %; Eosinophils # (A) 0.5 k/uL (0-0.7); Eosinophils % (A) 5 %; HCT 42.6 % (34.0-46.0); HGB 13.8 gm/dL (11.4-16.0); Lymphocytes # (A) 1.1 k/uL (1.0-4.8); Lymphocytes % (A) 10 %; MCH 28.1 pg (25.0-35.0); MCHC 32.5 g/dL (31.0-37.0); MCV 86.4 fL (80.0-100.0); Mean Platelet Volume 9.2; Monocytes % (A) 9 %; Neutrophils # (A) 8.1 k/uL (1.3-7.7); Neutrophils % (A) 74 %; Platelet Count 157 k/uL (150-450); RBC 4.93 m/uL (3.80-5.40); RDW 14.3 % (11.5-15.5)
[2023-08-14 10:01] LABS: ALT 254 U/L (4-34); AST 147 U/L (14-36); African American GFR (CKD) >90 (>60 ml/min/1.73 sqM); Albumin 3.6 g/dL (3.5-5.0); Alkaline Phosphatase 149 U/L (38-126); Anion Gap 7 mmol/L; Blood Urea Nitrogen 19 mg/dL (7-17); Carbon Dioxide 24 mmol/L (22-30); Chloride 108 mmol/L (98-107); Glucose 130 mg/dL (74-99); Non-African American GFR(CKD) 89 (>60 ml/min/1.73 sqM); Potassium 3.6 mmol/L (3.5-5.1); Sodium 139 mmol/L (137-145); Total Bilirubin 2.5 mg/dL (0.2-1.3); Total Protein 6.4 g/dL (6.3-8.2)
[2023-08-14 10:49] LABS: Appearance,Urine Cloudy (Clear); Bacteria,Urine Rare /hpf; Bilirubin,Urine 2+ (Negative); Blood,Urine Negative (Negative); Color,Urine Dark Brown; Glucose,Urine (UA) Negative (Negative); Ketones,Urine Negative (Negative); Leukocyte Esterase,Urine Trace (Negative); Mucus,Urine Many /hpf; Nitrite,Urine Negative (Negative); PH, Urine 6.5 (5.0-8.0); Protein,Urine 1+ (Negative); RBC,Urine 3 /hpf (0-5); Specific Gravity,Urine 1.031 (1.001-1.035); Squamous Epithelial Cell,Urine 11 /hpf (0-4); WBC,Urine 12 /hpf (0-5)
[2023-08-14] MEDS ORDERED: cefTRIAXone 1,000 MG VIAL (IM USE) IM STA (11:15)
[2023-08-14] MEDS ORDERED: cefTRIAXone IN SWFI 1,000 MG/10 ML SYRINGE IVP STA (11:53)
[2023-08-14 12:52] VITALS: BP 130/58; PULSE 82; RESP 17; TEMP 98.4
== END 2023-08-14 12:30 | disposition left against medical advice (07) ==
LOC: EC 08:10
DX: R74.01 Elevation of levels of liver transaminase levels (principal); B96.20 Unspecified Escherichia coli [E. coli] as the cause of diseases classified elsewhere; J45.909 Unspecified asthma, uncomplicated; K21.9 Gastro-esophageal reflux disease without esophagitis; E78.5 Hyperlipidemia, unspecified; M19.90 Unspecified osteoarthritis, unspecified site; E07.9 Disorder of thyroid, unspecified; F41.9 Anxiety disorder, unspecified; F32.A Depression, unspecified; F17.200 Nicotine dependence, unspecified, uncomplicated; Z79.82 Long term (current) use of aspirin; Z79.899 Other long term (current) drug therapy; Z79.890 Hormone replacement therapy; Z88.0 Allergy status to penicillin; Z88.2 Allergy status to sulfonamides; Z53.29 Procedure and treatment not carried out because of patient's decision for other reasons
CPT/HCPCS: 36415; 80053; 83605; 85025; 81001; 99283; 96374; J0696

== ENCOUNTER → 2023-08-19 | Outpatient (CLI) | payer MEDICARE, OTHER ==
[2023-08-19 16:41] LABS: Basophils # (A) 0.06 X 10*3/uL (0.00-0.10); Basophils % (A) 0.7 %; Eosinophils # (A) 0.29 X 10*3/uL (0.04-0.35); Eosinophils % (A) 3.3 %; HCT 43.6 % (37.2-46.3); HGB 13.8 g/dL (12.0-15.0); Lymphocytes # (A) 2.76 X 10*3/uL (0.90-5.00); Lymphocytes % (A) 31.8 %; MCH 27.4 pg (27.0-32.0); MCHC 31.7 g/dL (32.0-37.0); MCV 86.7 FL (80.0-97.0); Mean Platelet Volume 10.8 FL (9.5-12.2); Monocytes # (A) 0.82 X 10*3/uL (0.20-1.00); Monocytes % (A) 9.4 %; NRBC Per 100 WBC 0 X 10*3/uL (0.00-0.01); Neutrophils # (A) 4.61 X 10*3/uL (1.80-7.70); Neutrophils % (A) 53.1 %; Platelet Count 244 X 10*3/uL (140-440); RBC 5.03 X 10*6/uL (4.10-5.20); RDW 14.3 % (11.5-14.5); WBC 8.69 X 10*3/uL (4.50-10.00)
[2023-08-19 16:53] LABS: ALT 95 U/L (8-44); AST 32 U/L (13-35); Albumin 3.9 g/dL (3.8-4.9); Alkaline Phosphatase 142 U/L (41-126); BUN/Creat Ratio 23.29 Ratio (12.00-20.00); Blood Urea Nitrogen 16.3 mg/dL (9.0-27.0); Calcium 9.4 mg/dL (8.7-10.3); Carbon Dioxide 27.7 mmol/L (21.6-31.8); Chloride 102 mmol/L (96-109); Globulin 2.6 g/dL (1.6-3.3); Glucose 96 mg/dL (70-110); Potassium 3.8 mmol/L (3.5-5.5); Sodium 141 mmol/L (135-145); Total Bilirubin 0.4 mg/dL (0.3-1.2); Total Protein 6.5 g/dL (6.2-8.2)
== END | disposition home or self-care (01) ==
LOC: LABWHC1 12:43
PROVIDERS: ATTEND Surgery
DX: K81.9 Cholecystitis, unspecified (principal)
CPT/HCPCS: 36415; 80053; 85025

== ENCOUNTER 2023-10-07 04:24 | Emergency (ER) | payer MEDICARE, OTHER ==
--- NOTE | 2023-10-07 05:06 | ED ---
General Adult HPI - General Chief complaint: Abdominal Pain Stated complaint: Abdominal Pain Time Seen by Provider: 10/07/23 04:32 Source: EMS Mode of arrival: EMS - History of Present Illness Initial comments: Dictation was produced using [employer] dictation software. please excuse any grammatical, word or spelling errors. Chief Complaint: 68-year-old female presents to the ER for epigastric abdominal pain History of Present Illness: Patient 68-year-old female she has past medical history of GERD, dyslipidemia and thyroid disease. She states that she is here today for epigastric abdominal pain. She states her pain started last night however over the course of night her symptoms feel like got worse. She called EMS. Patient was given some medications with significant resolution of symptoms. States that the pain is to her upper abdomen and lower chest. Nonradiating symptoms. No associated diaphoresis or nausea. The ROS documented in this emergency department record has been reviewed and confirmed by me. Those systems with pertinent positive or negative responses have been documented in the HPI. All other systems are other negative and/or noncontributory. - Related Data Home Medications Medication Instructions Recorded Confirmed Aspirin 81 mg PO HS 11/09/13 08/13/23 Levothyroxine Sodium [Synthroid] 125 mcg PO MOTUTHFRSA 11/09/13 08/13/23 Montelukast Sodium [Singulair] 10 mg PO DAILY 11/09/13 08/13/23 Lansoprazole [Prevacid] 30 mg PO DAILY 12/03/21 08/13/23 [place]-3 Fatty Acids/Fish Oil [Fish 1 cap PO DAILY 12/03/21 08/13/23 Oil 1,000 mg Softgel] Simethicone 180 mg PO BID 12/03/21 08/13/23 carBAMazepine [TEGretol] 200 mg PO BID 12/03/21 08/13/23 hydroCHLOROthiazide [Hydrodiuril] 25 mg PO DAILY 12/03/21 08/13/23 Acetaminophen-Codeine 300-30mg 1 tab PO Q8H PRN 08/13/23 08/13/23 [Tylenol w/codeine #3] Cholecalciferol [Vitamin D3 (25 50 mcg PO BID 08/13/23 08/13/23 Mcg = 1000 Iu)] Cyanocobalamin [Vitamin B-12] 500 mcg PO DAILY 08/13/23 08/13/23 Levothyroxine Sodium [Synthroid] 250 mcg PO SUWE 08/13/23 08/13/23 Loratadine-Pseudoeph 10-240 mg 1 tab PO DAILY 08/13/23 08/13/23 [Claritin-D 24 Hour] Ofloxacin 0.3% Ophth Soln [Ocuflox 1 drop LEFT EYE QID 08/13/23 08/13/23 Ophth Soln] Pregabalin [Lyrica] 150 mg PO BID 08/13/23 08/13/23 Propylene Glycol [Systane Complete] 1 drop BOTH EYES QID PRN 08/13/23 08/13/23 Previous Rx's Medication Instructions Recorded Ciprofloxacin HCl [Cipro] 500 mg PO BID 14 Days #28 tab 08/14/23 Dicyclomine [Bentyl] 20 mg PO QID PRN #20 tablet 10/07/23 HYDROcodone/APAP 5-325MG [[place] 1 tab PO Q6HR PRN 3 Days #12 tab 10/07/23 5-325] Allergies Allergy/AdvReac Type Severity Reaction Status Date / Time Penicillins Allergy Unknown Verified 08/14/23 08:18 Childhood Sulfa (Sulfonamide Allergy Rash/Hives Verified 08/14/23 08:18 Antibiotics) clindamycin AdvReac Swelling Verified 10/07/23 04:45 Review of Systems ROS Statement: Those systems with pertinent positive or pertinent negative responses have been documented in the HPI. ROS Other: All systems not noted in ROS Statement are negative. Past Medical History Past Medical History: Asthma, GERD/Reflux, Hyperlipidemia, Osteoarthritis (OA), Thyroid Disorder Additional Past Medical History / Comment(s): TRIGEMINAL NEURALGIA, LT EYE keratoconjuntivitis sicca. CHANGE IN BOWEL HABITS-LOOSE STOOLS SINCE AUG 2021. HYPOGLYCEMIC History of Any Multi-Drug Resistant Organisms: None Reported Past Surgical History: No Surgical Hx Reported Additional Past Surgical History / Comment(s): BILAT cataracts, dental extraction. EGD Past Anesthesia/Blood Transfusion Reactions: No Reported Reaction Past Psychological History: Anxiety, Depression Smoking Status: Current every day smoker Past Alcohol Use History: None Reported Past Drug Use History: None Reported - Past Family History Mother Additional Family Medical History / Comment(s): ADOPTED General Exam - General Exam Comments Initial Comments: PHYSICAL EXAM: General Impression: Alert and oriented x3, not in acute distress HEENT: Normocephalic atraumatic, extra-ocular movements intact, pupils equal and reactive to light bilaterally, mucous membranes moist. Cardiovascular: Heart regular rate and rhythm Chest: Able to complete full sentences, no retractions, no tachypnea Abdomen: abdomen soft, non-tender, non-distended, no organomegaly Musculoskeletal: Pulses present and equal in all extremities, no peripheral edema Motor: no focal deficits noted Neurological: CN II-XII grossly intact, no focal motor or sensory deficits noted Skin: Intact with no visualized rashes Psych: Normal affect and mood Course Vital Signs 10/07/23 10/07/23 04:26 06:40 Temperature 97.6 F Pulse Rate 70 Respiratory 18 71 H Rate Blood Pressure 133/56 132/58 O2 Sat by Pulse 97 94 L Oximetry EKG Findings - EKG Comments: EKG Findings:: My EKG interpretation: Ventricular rate 69, sinus rhythm,. 191, QRS 102, QTc 416. No [place] prolongation, no QTC prolongation, no ST or T-wave changes noted. Overall, this EKG is unremarkable Medical Decision Making - Medical Decision Making Was pt. sent in by a medical professional or institution (, PA, BASEBALL PITCHER, urgent care, hospital, or halfway...) When possible be specific @ -No Did you speak to anyone other than the patient for history (EMS, parent, family, police, friend...)? What history was obtained from this source @ -No Did you review nursing and triage notes (agree or disagree)? Why? @ -I reviewed and agree with nursing and triage notes Were old charts reviewed (outside hosp., previous admission, EMS record, old EKG, old radiological studies, urgent care reports/EKG's, halfway records)? Report findings @ -No old charts were reviewed Differential Diagnosis (chest pain, altered mental status, abdominal pain women, abdominal pain men, vaginal bleeding, musculoskeletal, weakness, fever, dyspnea, syncope, headache, dizziness, GI bleed, back pain, seizure, CVA, palpatations, mental health)? @ -Differential Abdominal Pain Women: Appendicitis, Cholecystitis, diverticulosis, ischemic bowel, pancreatitis, hep atitis, UTI, gastroenteritis, AAA, incarcerated hernia, bowel obstruction, constipation, inflammatory bowel, hepatitis, peptic ulcer disease, splenic infarction, perforated viscus, vulvitis, ovarian torsion, PID, kidney stone, placenta abruption, this is not meant to be an all-inclusive list EKG interpreted by me (3pts min.). @ -See above X-rays interpreted by me (1pt min.). @ -Nonobstructive bowel gas pattern on abdominal x-ray CT interpreted by me (1pt min.). @ -None done U/S interpreted by me (1pt. min.). @ -None done What testing was considered but not performed or refused? (CT, X-rays, U/S, labs)? Why? @ -None What meds were considered but not given or refused? Why? @ -None Did you discuss the management of the patient with other professionals (professionals i.e. , PA, BASEBALL PITCHER, lab, RT, psych nurse, social work administrator, laborer general, teacher, correction officer reformatory, case technician)? Give summary @ -No Was smoking cessation discussed for >3mins.? @ -No Was critical care preformed (if so, how long)? @ -No Were there social determinants of health that impacted care today? How? (Homelessness, low income, unemployed, alcoholism, drug addiction, transportation, low edu. Level, literacy, decrease access to med. care, prison, rehab)? @ -No Was there de-escalation of care discussed even if they declined (Discuss DNR or withdrawal of care, Hospice)? DNR status @ -No What co-morbidities impacted this encounter? (DM, HTN, Smoking, COPD, CAD, Cancer, CVA, ARF, Chemo, Hep., AIDS, mental health diagnosis, sleep apnea, morbid obesity)? @ -None Was patient admitted / discharged? Hospital course, mention meds given and route, prescriptions, significant lab abnormalities, going to OR and other pert inent info. @ -68-year-old female presents emergency department for epigastric abdominal pain. Patient states her symptoms improved significantly after prehospital vitals provided her Zofran and analgesia. Laboratory evaluation is unremarkable. Abdominal x-ray shows no acute processes. Patient observed emergency department for approximately 2 hours 30 minutes. Reevaluated at bedside at 7:00 AM found to be stable clinical condition. Patient discharged advised follow-up with primary care doctor. Counseled patient that her symptoms may be cardiac related. She states that she is confident that it is not because she dealt with something like this recently. She does have an appointment with Dr. Moeller coming up. She was recommended to be admitted for cardiac monitoring or at least get a second troponin. Patient will prefer to be discharged. She states that she just wants some medication relief to bridge her over to her GI appointment. Patient prescription for Bentyl and [place]. Return precautions discussed. Undiagnosed new problem with uncertain prognosis? @ -No Drug Therapy requiring intensive monitoring for toxicity (Heparin, Nitro, Insulin, Cardizem)? @ -No Were any procedures done? @ -No Diagnosis/symptom? Acute, or Chronic, or Acute on Chronic? Uncomplicated (wit hout systemic symptoms) or Complicated (systemic symptoms)? @ -Abdominal pain, no high risk features Side effects of treatment? @ -No Exacerbation, Progression, or Severe Exacerbation? @ -No Poses a threat to life or bodily function? How? (Chest pain, [place], ID, pneumonia, PE, COPD, DKA, ARF, appy, cholecystitis, CVA, Diverticulitis, Homicidal, Suicidal, threat to staff... and all critical care pts) @ -No - Lab Data Result diagrams: 10/07/23 04:56 10/07/23 04:56 Lab Results 10/07/23 10/07/23 10/07/23 Range/Units 04:56 04:56 04:56 WBC 9.3 (3.8-10.6) k/uL RBC 4.68 (3.80-5.40) m/uL Hgb 13.9 (11.4-16.0) gm/dL Hct 40.8 (34.0-46.0) % MCV 87.2 (80.0-100.0) fL MCH 29.6 (25.0-35.0) pg MCHC 34.0 (31.0-37.0) g/dL RDW 14.3 (11.5-15.5) % Plt Count 196 (150-450) k/uL MPV 8.9 Neutrophils % 63 % Lymphocytes % 24 % Monocytes % 7 % Eosinophils % 3 % Basophils % 1 % Neutrophils # 5.8 (1.3-7.7) k/uL Lymphocytes # 2.2 (1.0-4.8) k/uL Monocytes # 0.7 (0-1.0) k/uL Eosinophils # 0.3 (0-0.7) k/uL Basophils # 0.1 (0-0.2) k/uL Sodium 139 (137-145) mmol/L Potassium 3.8 (3.5-5.1) mmol/L Chloride 104 (98-107) mmol/L Carbon Dioxide 26 (22-30) mmol/L Anion Gap 9 mmol/L BUN 22 H (7-17) mg/dL Creatinine 0.71 (0.52-1.04) mg/dL Est GFR (CKD-EPI)AfAm >90 (>60 ml/min/1.73 sqM) Est GFR (CKD-EPI)NonAf 89 (>60 ml/min/1.73 sqM) Glucose 100 H (74-99) mg/dL Plasma Lactic Acid Kevin 1.4 (0.7-2.0) mmol/L Calcium 9.2 (8.4-10.2) mg/dL Total Bilirubin 0.6 (0.2-1.3) mg/dL AST 70 H (14-36) U/L ALT 235 H (4-34) U/L Alkaline Phosphatase 186 H (38-126) U/L Troponin I (0.000-0.034) ng/mL Total Protein 6.9 (6.3-8.2) g/dL Albumin 3.9 (3.5-5.0) g/dL Lipase 76 (23-300) U/L 10/07/23 Range/Units 04:56 WBC (3.8-10.6) k/uL RBC (3.80-5.40) m/uL Hgb (11.4-16.0) gm/dL Hct (34.0-46.0) % MCV (80.0-100.0) fL MCH (25.0-35.0) pg MCHC (31.0-37.0) g/dL RDW (11.5-15.5) % Plt Count (150-450) k/uL MPV Neutrophils % % Lymphocytes % % Monocytes % % Eosinophils % % Basophils % % Neutrophils # (1.3-7.7) k/uL Lymphocytes # (1.0-4.8) k/uL Monocytes # (0-1.0) k/uL Eosinophils # (0-0.7) k/uL Basophils # (0-0.2) k/uL Sodium (137-145) mmol/L Potassium (3.5-5.1) mmol/L Chloride (98-107) mmol/L Carbon Dioxide (22-30) mmol/L Anion Gap mmol/L BUN (7-17) mg/dL Creatinine (0.52-1.04) mg/dL Est GFR (CKD-EPI)AfAm (>60 ml/min/1.73 sqM) Est GFR (CKD-EPI)NonAf (>60 ml/min/1.73 sqM) Glucose (74-99) mg/dL Plasma Lactic Acid Kevin (0.7-2.0) mmol/L Calcium (8.4-10.2) mg/dL Total Bilirubin (0.2-1.3) mg/dL AST (14-36) U/L ALT (4-34) U/L Alkaline Phosphatase (38-126) U/L Troponin I <0.012 (0.000-0.034) ng/mL Total Protein (6.3-8.2) g/dL Albumin (3.5-5.0) g/dL Lipase (23-300) U/L Disposition Clinical Impression: Abdominal pain Disposition: HOME SELF-CARE Instructions (If sedation given, give patient instructions): Abdominal Pain (ED) Prescriptions: Dicyclomine [Bentyl] 20 mg PO QID PRN #20 tablet PRN Reason: Pain HYDROcodone/APAP 5-325MG [[place] 5-325] 1 tab PO Q6HR PRN 3 Days #12 tab PRN Reason: Severe Pain Is patient prescribed a controlled substance at d/c from ED?: Yes If prescribed controlled substance>3 days was MAPS reviewed?: Prescribed <3 Days Referrals: Jeremiah Ma MD [Primary Care Provider] - 1-2 days Chelle Moeller MD [STAFF PHYSICIAN] - 1-2 days Time of Disposition: 07:25
[2023-10-07 05:09] LABS: Basophils # (A) 0.1 k/uL (0-0.2); Basophils % (A) 1 %; Eosinophils # (A) 0.3 k/uL (0-0.7); Eosinophils % (A) 3 %; HCT 40.8 % (34.0-46.0); HGB 13.9 gm/dL (11.4-16.0); Lymphocytes # (A) 2.2 k/uL (1.0-4.8); Lymphocytes % (A) 24 %; MCH 29.6 pg (25.0-35.0); MCV 87.2 fL (80.0-100.0); Mean Platelet Volume 8.9; Monocytes # (A) 0.7 k/uL (0-1.0); Monocytes % (A) 7 %; Neutrophils # (A) 5.8 k/uL (1.3-7.7); Neutrophils % (A) 63 %; Platelet Count 196 k/uL (150-450); RBC 4.68 m/uL (3.80-5.40); RDW 14.3 % (11.5-15.5); WBC 9.3 k/uL (3.8-10.6)
[2023-10-07 05:43] LABS: ALT 235 U/L (4-34); AST 70 U/L (14-36); African American GFR (CKD) >90 (>60 ml/min/1.73 sqM); Albumin 3.9 g/dL (3.5-5.0); Alkaline Phosphatase 186 U/L (38-126); Anion Gap 9 mmol/L; Blood Urea Nitrogen 22 mg/dL (7-17); Calcium 9.2 mg/dL (8.4-10.2); Carbon Dioxide 26 mmol/L (22-30); Chloride 104 mmol/L (98-107); Glucose 100 mg/dL (74-99); Lipase 76 U/L (23-300); Non-African American GFR(CKD) 89 (>60 ml/min/1.73 sqM); Potassium 3.8 mmol/L (3.5-5.1); Sodium 139 mmol/L (137-145); Total Bilirubin 0.6 mg/dL (0.2-1.3); Total Protein 6.9 g/dL (6.3-8.2)
--- NOTE | 2023-10-07 07:37 | XR ---
EXAMINATION TYPE: XR abdomen acute w cxr DATE OF EXAM: 10/07/2023 COMPARISON: None HISTORY: Pain TECHNIQUE: Acute abdominal series performed frontal chest upright and supine views of the abdomen FINDINGS: Normal colonic bowel gas is present. No suspicious air-fluid levels or differential air-flu id levels are evident. No free air is evident. No mass effect is evident. Psoas margins are normal. N o organomegaly is evident. Large calcifications are within the right hemiabdomen. Exam is supplemented with frontal chest. Heart size is prominent. Pulmonary vasculature is normal. No suspicious infiltrates. IMPRESSION: 1. Nonspecific abdomen. 2. Large calcifications within the right abdomen. Consider cholelithiasis.
[2023-10-07 08:03] VITALS: BP 137/59; PULSE 72; RESP 16; TEMP 97.9
== END 2023-10-07 07:41 | disposition home or self-care (01) ==
LOC: EC 04:24 → SUPCPDRO 04:24 → EC 07:41
DX: R10.13 Epigastric pain (principal); F17.200 Nicotine dependence, unspecified, uncomplicated; Z88.0 Allergy status to penicillin; Z88.2 Allergy status to sulfonamides; Z88.8 Allergy status to other drugs, medicaments and biological substances
CPT/HCPCS: 36415; 74022; 80053; 83605; 83690; 84484; 85025; 93005; 99284

== ENCOUNTER 2023-10-08 00:32 | Emergency (ER) | payer MEDICARE, OTHER ==
[2023-10-08 01:20] VITALS: RESP 18
[2023-10-08 02:15] LABS: Basophils # (A) 0.1 k/uL (0-0.2); Basophils % (A) 0 %; Eosinophils # (A) 0.3 k/uL (0-0.7); Eosinophils % (A) 3 %; HCT 43.1 % (34.0-46.0); HGB 14.3 gm/dL (11.4-16.0); Lymphocytes # (A) 2.2 k/uL (1.0-4.8); Lymphocytes % (A) 18 %; MCH 28.4 pg (25.0-35.0); MCHC 33.1 g/dL (31.0-37.0); MCV 85.6 fL (80.0-100.0); Mean Platelet Volume 8.9; Monocytes # (A) 0.8 k/uL (0-1.0); Monocytes % (A) 7 %; Neutrophils # (A) 8.5 k/uL (1.3-7.7); Neutrophils % (A) 70 %; Platelet Count 226 k/uL (150-450); RBC 5.03 m/uL (3.80-5.40); RDW 14.3 % (11.5-15.5); WBC 12.2 k/uL (3.8-10.6)
[2023-10-08 02:23] LABS: ALT 241 U/L (4-34); AST 228 U/L (14-36); African American GFR (CKD) >90 (>60 ml/min/1.73 sqM); Alkaline Phosphatase 245 U/L (38-126); Anion Gap 8 mmol/L; Blood Urea Nitrogen 20 mg/dL (7-17); Calcium 9.5 mg/dL (8.4-10.2); Carbon Dioxide 26 mmol/L (22-30); Chloride 104 mmol/L (98-107); Glucose 114 mg/dL (74-99); Lipase 76 U/L (23-300); Non-African American GFR(CKD) >90 (>60 ml/min/1.73 sqM); Potassium 4.4 mmol/L (3.5-5.1); Sodium 138 mmol/L (137-145); Total Bilirubin 1.3 mg/dL (0.2-1.3)
[2023-10-08 02:52] LABS: Appearance,Urine Clear (Clear); Bilirubin,Urine Negative (Negative); Blood,Urine Negative (Negative); Color,Urine Light Yellow; Glucose,Urine (UA) Negative (Negative); Ketones,Urine Negative (Negative); Leukocyte Esterase,Urine Negative (Negative); Nitrite,Urine Negative (Negative); Protein,Urine Negative (Negative); Specific Gravity,Urine 1.013 (1.001-1.035); Urobilinogen,Urine <2.0 mg/dL (<2.0)
[2023-10-08] MEDS: MORPHINE SULFATE 4 MG/ML SYRINGE IVP STA ×2 (03:18→08:54)
[2023-10-08] MEDS: ONDANSETRON 4 MG/2 ML VIAL IVP STA ×2 (03:18→08:54)
--- NOTE | 2023-10-08 05:53 | CT ---
EXAM: CT Abdomen and Pelvis With Intravenous Contrast CLINICAL HISTORY: elevated liver enzymes TECHNIQUE: Axial computed tomography images of the abdomen and pelvis with intravenous contrast. CTDI is 52 mGy and DLP is 2474.7 mGy-cm. This CT exam was performed using one or more of the following dose reduction techniques: automated exposure control, adjustment of the mA and/or kV according to patient size, and/or use of iterative reconstruction technique. COMPARISON: No relevant prior studies available. FINDINGS: ABDOMEN: Liver: Unremarkable. No mass. Gallbladder and bile ducts: Small amount of air within the gallbladder. The coronal images appear to show edema in the fat surrounding the gallbladder. No calcified stones. No ductal dilation. Pancreas: Unremarkable. No mass. No ductal dilation. Spleen: Unremarkable. No splenomegaly. Adrenals: Unremarkable. No mass. Kidneys and ureters: Unremarkable. No solid mass. No hydronephrosis. Stomach and bowel: Unremarkable. No obstruction. No mucosal thickening. PELVIS: Appendix: No findings to suggest acute appendicitis. Bladder: Unremarkable. No mass. ABDOMEN and PELVIS: Intraperitoneal space: Unremarkable. No free air. No significant fluid collection. Bones/joints: No acute findings. Soft tissues: See above. Vasculature: Unremarkable. No abdominal aortic aneurysm. Lymph nodes: Unremarkable. No enlarged lymph nodes. IMPRESSION: The coronal images appear to show some edema in the fat surrounding the gallbladder. Correlate for possible cholecystitis. No high density stones are evident.
[2023-10-08] MEDS: LORazepam 2 MG/ML INJ IV STA (06:30)
--- NOTE | 2023-10-08 06:56 | ED ---
Abdominal Pain HPI - General Chief Complaint: Abdominal Pain Stated Complaint: Abdominal Pain Time Seen by Provider: 10/08/23 01:00 Source: EMS Mode of arrival: EMS - History of Present Illness Initial Comments: 68-year-old female presents emergency department reporting right upper quadrant abdominal pain. Patient states that she has known gallbladder disease. She is currently under the care of Dr. Sutherland and Dr. Moeller. She does have an appointment on Wednesday with Dr. Moeller. States that tonight she began having an intense episode of her abdominal pain which prompted her to come into the emergency department. She has a prescription for [place] at home which she states that she took 1 of but it did nothing for her pain. She has associated nausea with vomiting. Denies diarrhea. No fevers. Denies any chest pain or shortness of breath. Patient was hospitalized for this pain. ERCP with planned however the patient left AMA. No other alleviating, precipitating or modifying factors - Related Data Home Medications Medication Instructions Recorded Confirmed Aspirin 81 mg PO HS 11/09/13 08/13/23 Levothyroxine Sodium [Synthroid] 125 mcg PO MOTUTHFRSA 11/09/13 08/13/23 Montelukast Sodium [Singulair] 10 mg PO DAILY 11/09/13 08/13/23 Lansoprazole [Prevacid] 30 mg PO DAILY 12/03/21 08/13/23 Welch-3 Fatty Acids/Fish Oil [Fish 1 cap PO DAILY 12/03/21 08/13/23 Oil 1,000 mg Softgel] Simethicone 180 mg PO BID 12/03/21 08/13/23 carBAMazepine [TEGretol] 200 mg PO BID 12/03/21 08/13/23 hydroCHLOROthiazide [Hydrodiuril] 25 mg PO DAILY 12/03/21 08/13/23 Acetaminophen-Codeine 300-30mg 1 tab PO Q8H PRN 08/13/23 08/13/23 [Tylenol w/codeine #3] Cholecalciferol [Vitamin D3 (25 50 mcg PO BID 08/13/23 08/13/23 Mcg = 1000 Iu)] Cyanocobalamin [Vitamin B-12] 500 mcg PO DAILY 08/13/23 08/13/23 Levothyroxine Sodium [Synthroid] 250 mcg PO SUWE 08/13/23 08/13/23 Loratadine-Pseudoeph 10-240 mg 1 tab PO DAILY 08/13/23 08/13/23 [Claritin-D 24 Hour] Ofloxacin 0.3% Ophth Soln [Ocuflox 1 drop LEFT EYE QID 08/13/23 08/13/23 Ophth Soln] Pregabalin [Lyrica] 150 mg PO BID 08/13/23 08/13/23 Propylene Glycol [Systane Complete] 1 drop BOTH EYES QID PRN 08/13/23 08/13/23 Previous Rx's Medication Instructions Recorded Ciprofloxacin HCl [Cipro] 500 mg PO BID 14 Days #28 tab 08/14/23 Dicyclomine [Bentyl] 20 mg PO QID PRN #20 tablet 10/07/23 HYDROcodone/APAP 5-325MG [[place] 1 tab PO Q6HR PRN 3 Days #12 tab 10/07/23 5-325] HYDROcodone/APAP 10-325MG [[place] 1 tab PO Q4HR PRN 3 Days #18 tab 10/08/23 10-325] Levofloxacin [Levaquin] 750 mg PO DAILY 1 Days #7 tab 10/08/23 Allergies Allergy/AdvReac Type Severity Reaction Status Date / Time Penicillins Allergy Unknown Verified 08/14/23 08:18 Childhood Sulfa (Sulfonamide Allergy Rash/Hives Verified 08/14/23 08:18 Antibiotics) clindamycin AdvReac Swelling Verified 10/07/23 04:45 Review of Systems ROS Statement: Those systems with pertinent positive or pertinent negative responses have been documented in the HPI. ROS Other: All systems not noted in ROS Statement are negative. Past Medical History Past Medical History: Asthma, GERD/Reflux, Hyperlipidemia, Osteoarthritis (OA), Thyroid Disorder Additional Past Medical History / Comment(s): TRIGEMINAL NEURALGIA, LT EYE keratoconjuntivitis sicca. CHANGE IN BOWEL HABITS-LOOSE STOOLS SINCE AUG 2021. HYPOGLYCEMIC History of Any Multi-Drug Resistant Organisms: None Reported Past Surgical History: No Surgical Hx Reported Additional Past Surgical History / Comment(s): BILAT cataracts, dental extraction. EGD Past Anesthesia/Blood Transfusion Reactions: No Reported Reaction Past Psychological History: Anxiety, Depression Smoking Status: Current every day smoker Past Alcohol Use History: None Reported Past Drug Use History: None Reported - Past Family History Mother Additional Family Medical History / Comment(s): ADOPTED General Exam General appearance: alert, in no apparent distress Head exam: Present: atraumatic, normocephalic, normal inspection Eye exam: Present: normal appearance, PERRL, EOMI. Absent: scleral icterus, conjunctival injection, periorbital swelling ENT exam: Present: normal exam, mucous membranes moist Neck exam: Present: normal inspection. Absent: tenderness, meningismus, lymphadenopathy Respiratory exam: Present: normal lung sounds bilaterally. Absent: respiratory distress, wheezes, rales, rhonchi, stridor Cardiovascular Exam: Present: regular rate, normal rhythm, normal heart sounds. Absent: systolic murmur, diastolic murmur, rubs, gallop, clicks GI/Abdominal exam: Present: soft, tenderness (Right upper quadrant), normal bowel sounds. Absent: distended, guarding, rebound, rigid Extremities exam: Present: normal inspection, full ROM, normal capillary refill. Absent: tenderness, pedal edema, joint swelling, calf tenderness Back exam: Present: normal inspection Neurological exam: Present: alert, oriented X3, CN II-XII intact Psychiatric exam: Present: normal affect, normal mood Skin exam: Present: warm, dry, intact, normal color. Absent: rash Course Vital Signs 10/08/23 10/08/23 10/08/23 00:33 07:14 07:25 Temperature 97.1 F L 98.6 F Pulse Rate 76 89 Respiratory 18 18 18 Rate Blood Pressure 143/48 133/57 O2 Sat by Pulse 98 94 L 94 L Oximetry 10/08/23 10/08/23 08:44 08:53 Temperature 98.0 F 98.0 F Pulse Rate 86 86 Respiratory 18 18 Rate Blood Pressure 130/56 130/56 O2 Sat by Pulse 97 97 Oximetry Medical Decision Making - Medical Decision Making Was pt. sent in by a medical professional or institution (, PA, FORECLOSURE SPECIALIST, urgent care, hospital, or care home...) When possible be specific @ -No Did you speak to anyone other than the patient for history (EMS, parent, family, police, friend...)? What history was obtained from this source @ -No Did you review nursing and triage notes (agree or disagree)? Why? @ -I reviewed and agree with nursing and triage notes Were old charts reviewed (outside hosp., previous admission, EMS record, old EKG, old radiological studies, urgent care reports/EKG's, care home records)? Report findings @ -I reviewed the patient's ED visit workup from yesterday Differential Diagnosis (chest pain, altered mental status, abdominal pain women, abdominal pain men, vaginal bleeding, weakness, fever, dyspnea, syncope, hea dache, dizziness, GI bleed, back pain, seizure, CVA, palpatations, mental health, musculoskeletal)? @ -Differential Abdominal Pain Women: Appendicitis, Cholecystitis, diverticulosis, ischemic bowel, pancreatitis, hepatitis, UTI, gastroenteritis, AAA, incarcerated hernia, bowel obstruction, constipation, inflammatory bowel, hepatitis, peptic ulcer disease, splenic infarction, perforated viscus, vulvitis, ovarian torsion, PID, kidney stone, placenta abruption, this is not meant to be an all-inclusive list EKG interpreted by me (3pts min.). @ -Not done X-rays interpreted by me (1pt min.). @ -None done CT interpreted by me (1pt min.). @ -Yes and demonstrates possible cholecystitis U/S interpreted by me (1pt. min.). @ -None done What testing was considered but not performed or refused? (CT, X-rays, U/S, labs)? Why? @ -None What meds were considered but not given or refused? Why? @ -None Did you discuss the management of the patient with other professionals (professionals i.e. , PA, FORECLOSURE SPECIALIST, lab, RT, psych nurse, social director, contract clerk, teacher, chief medical officer, rn field case manager)? Give summary @ -Spoke with About Was smoking cessation discussed for >3mins.? @ -No Was critical care preformed (if so, how long)? @ -No Were there social determinants of health that impacted care today? How? (Homelessness, low income, unemployed, alcoholism, drug addiction, transportation, low edu. Level, literacy, decrease access to med. care, shelter, rehab)? @ -No Was there de-escalation of care discussed even if they declined (Discuss DNR or withdrawal of care, Hospice)? DNR status @ -No What co-morbidities impacted this encounter? (DM, HTN, Smoking, COPD, CAD, Cancer, CVA, ARF, Chemo, Hep., AIDS, mental health diagnosis, sleep apnea, morbid obesity)? @ -Obesity Was patient admitted / discharged? Hospital course, mention meds given and route, prescriptions, significant lab abnormalities, going to OR and other pertinent info. @ -Upon arrival patient was seen and evaluated in room 25. Thorough history and physical exam was performed. I did review the patient's previous records. Recommended laboratory studies and pain control. Laboratory studies were performed and the patient does have markedly elevated liver enzymes. They are worse than they have been. Because of this I did recommend repeat imaging. Ultrasound is not available. CT was performed which demonstrates possible cholecystitis. I did call and speak with Dr. Rollins. He states that due to the elevated liver enzymes he does recommend transfer to a facility with GI capabilities as we do not have GI on right now. I spoke with the patient in regards to this. She states that she does not want to be admitted or be transferred as she does have a disabled at home. Patient needs to go home at this time. We did discuss treatment options. Patient will be given a stronger dose of pain medications as well as antibiotics. Patient needs to follow-up at her appointment on Wednesday with Dr. Calderon. If she has any new or worsening symptoms she should return to the emergency department. Patient understood this. Discharged home in stable condition with a guarded prognosis Undiagnosed new problem with uncertain prognosis? @ -Yes Drug Therapy requiring intensive monitoring for toxicity (Heparin, Nitro, Insulin, Cardizem)? @ -No Were any procedures done? @ -No Diagnosis/symptom? @ -Acute exacerbation of chronic right upper quadrant abdominal pain, possible cholecystitis Acute, or Chronic, or Acute on Chronic? @ -Acute on chronic Uncomplicated (without systemic symptoms) or Complicated (systemic symptoms)? @ -Complicated Side effects of treatment? @ -No Exacerbation, Progression, or Severe Exacerbation? @ -No Poses a threat to life or bodily function? How? (Chest pain, [place], [place], pneumonia, PE, COPD, DKA, ARF, appy, cholecystitis, CVA, Diverticulitis, Homicidal, Alexander icidal, threat to staff... and all critical care pts) @ -Possibly this the patient does have concerns for cholecystitis - Lab Data Result diagrams: 10/08/23 02:02 10/08/23 02:02 Lab Results 10/08/23 10/08/23 10/08/23 Range/Units 02:02 02:02 02:02 WBC 12.2 H (3.8-10.6) k/uL RBC 5.03 (3.80-5.40) m/uL Hgb 14.3 (11.4-16.0) gm/dL Hct 43.1 (34.0-46.0) % MCV 85.6 (80.0-100.0) fL MCH 28.4 (25.0-35.0) pg MCHC 33.1 (31.0-37.0) g/dL RDW 14.3 (11.5-15.5) % Plt Count 226 (150-450) k/uL MPV 8.9 Neutrophils % 70 % Lymphocytes % 18 % Monocytes % 7 % Eosinophils % 3 % Basophils % 0 % Neutrophils # 8.5 H (1.3-7.7) k/uL Lymphocytes # 2.2 (1.0-4.8) k/uL Monocytes # 0.8 (0-1.0) k/uL Eosinophils # 0.3 (0-0.7) k/uL Basophils # 0.1 (0-0.2) k/uL Sodium 138 (137-145) mmol/L Potassium 4.4 (3.5-5.1) mmol/L Chloride 104 (98-107) mmol/L Carbon Dioxide 26 (22-30) mmol/L Anion Gap 8 mmol/L BUN 20 H (7-17) mg/dL Creatinine 0.68 (0.52-1.04) mg/dL Est GFR (CKD-EPI)AfAm >90 (>60 ml/min/1.73 sqM) Est GFR (CKD-EPI)NonAf >90 (>60 ml/min/1.73 sqM) Glucose 114 H (74-99) mg/dL POC Glucose (mg/dL) (70-110) mg/dL POC Glu Women[employer]S Apparel Salesperson ID Plasma Lactic Acid Kevin (0.7-2.0) mmol/L Calcium 9.5 (8.4-10.2) mg/dL Total Bilirubin 1.3 (0.2-1.3) mg/dL AST 228 H (14-36) U/L ALT 241 H (4-34) U/L Alkaline Phosphatase 245 H (38-126) U/L Total Protein 7.0 (6.3-8.2) g/dL Albumin 4.0 (3.5-5.0) g/dL Lipase 76 (23-300) U/L Urine Color Light Yellow Urine Appearance Clear (Clear) Urine pH 6.0 (5.0-8.0) Ur Specific [place] 1.013 (1.001-1.035) Urine Protein Negative (Negative) Urine Glucose (UA) Negative (Negative) Urine Ketones Negative (Negative) Urine Blood Negative (Negative) Urine Nitrite Negative (Negative) Urine Bilirubin Negative (Negative) Urine Urobilinogen <2.0 (<2.0) mg/dL Ur Leukocyte Esterase Negative (Negative) 10/08/23 10/08/23 Range/Units 02:02 07:28 WBC (3.8-10.6) k/uL RBC (3.80-5.40) m/uL Hgb (11.4-16.0) gm/dL Hct (34.0-46.0) % MCV (80.0-100.0) fL MCH (25.0-35.0) pg MCHC (31.0-37.0) g/dL RDW (11.5-15.5) % Plt Count (150-450) k/uL MPV Neutrophils % % Lymphocytes % % Monocytes % % Eosinophils % % Basophils % % Neutrophils # (1.3-7.7) k/uL Lymphocytes # (1.0-4.8) k/uL Monocytes # (0-1.0) k/uL Eosinophils # (0-0.7) k/uL Basophils # (0-0.2) k/uL Sodium (137-145) mmol/L Potassium (3.5-5.1) mmol/L Chloride (98-107) mmol/L Carbon Dioxide (22-30) mmol/L Anion Gap mmol/L BUN (7-17) mg/dL Creatinine (0.52-1.04) mg/dL Est GFR (CKD-EPI)AfAm (>60 ml/min/1.73 sqM) Est GFR (CKD-EPI)NonAf (>60 ml/min/1.73 sqM) Glucose (74-99) mg/dL POC Glucose (mg/dL) 131 H (70-110) mg/dL POC Glu Women[employer] Salesperson ID Yanet Guthrie Plasma Lactic Acid Kevin 1.4 (0.7-2.0) mmol/L Calcium (8.4-10.2) mg/dL Total Bilirubin (0.2-1.3) mg/dL AST (14-36) U/L ALT (4-34) U/L Alkaline Phosphatase (38-126) U/L Total Protein (6.3-8.2) g/dL Albumin (3.5-5.0) g/dL Lipase (23-300) U/L Urine Color Urine Appearance (Clear) Urine pH (5.0-8.0) Ur Specific [place] (1.001-1.035) Urine Protein (Negative) Urine Glucose (UA) (Negative) Urine Ketones (Negative) Urine Blood (Negative) Urine Nitrite (Negative) Urine Bilirubin (Negative) Urine Urobilinogen (<2.0) mg/dL Ur Leukocyte Esterase (Negative) Disposition Clinical Impression: RUQ pain, Cholecystitis Disposition: HOME SELF-CARE Condition: Stable Instructions (If sedation given, give patient instructions): Cholecystitis (ED) Additional Instructions: I did recommend hospital transfer. Please take the antibiotics as directed. Follow-up with Dr. Moeller on Wednesday. Return for any new or worsening symptoms Prescriptions: Levofloxacin [Levaquin] 750 mg PO DAILY 1 Days #7 tab HYDROcodone/APAP 10-325MG [[place] 10-325] 1 tab PO Q4HR PRN 3 Days #18 tab PRN Reason: Pain Is patient prescribed a controlled substance at d/c from ED?: Yes When asked, does pt state using other controlled substances?: No If prescribed controlled substance>3 days was MAPS reviewed?: Prescribed <3 Days If opioid is for acute pain is fill amount 7 days or less?: Yes Referrals: Jeremiah Ma MD [Primary Care Provider] - 1-2 days Chelle Moeller MD [STAFF PHYSICIAN] - 1-2 days Time of Disposition: 08:23
[2023-10-08 07:29] LABS: Glucose,Whole Blood 131 mg/dL (70-110)
[2023-10-08 09:05] VITALS: BP 130/56; PULSE 86; TEMP 98
== END 2023-10-08 09:00 | disposition home or self-care (01) ==
LOC: EC 00:32
DX: K81.9 Cholecystitis, unspecified (principal); F17.200 Nicotine dependence, unspecified, uncomplicated; Z88.0 Allergy status to penicillin; Z88.2 Allergy status to sulfonamides; Z88.1 Allergy status to other antibiotic agents
CPT/HCPCS: 36415; 80053; 83605; 83690; 85025; 81003; 74177; 99285; 96374; 96375; 96376 ×2; J2270; J2405; Q9967

== ENCOUNTER 2023-10-17 22:07 | Inpatient (IN) | payer MEDICARE, OTHER ==
[2023-10-17] MEDS: SODIUM CHLORIDE 0.9% 1,000 ML IV STA (22:36)
[2023-10-17 22:50] LABS: Basophils % (A) 0 %; Eosinophils # (A) 0.2 k/uL (0-0.7); Eosinophils % (A) 2 %; HCT 42.1 % (34.0-46.0); HGB 13.6 gm/dL (11.4-16.0); Lymphocytes # (A) 1.6 k/uL (1.0-4.8); Lymphocytes % (A) 18 %; MCH 27.7 pg (25.0-35.0); MCHC 32.2 g/dL (31.0-37.0); MCV 85.9 fL (80.0-100.0); Mean Platelet Volume 8.5; Monocytes # (A) 0.4 k/uL (0-1.0); Monocytes % (A) 5 %; Neutrophils # (A) 6.4 k/uL (1.3-7.7); Neutrophils % (A) 74 %; Platelet Count 165 k/uL (150-450); WBC 8.8 k/uL (3.8-10.6)
[2023-10-17 23:35] LABS: ALT 51 U/L (4-34); AST 32 U/L (14-36); African American GFR (CKD) >90 (>60 ml/min/1.73 sqM); Albumin 3.4 g/dL (3.5-5.0); Alkaline Phosphatase 137 U/L (38-126); Amylase 48 U/L (30-110); Anion Gap 4 mmol/L; Blood Urea Nitrogen 20 mg/dL (7-17); Calcium 8.6 mg/dL (8.4-10.2); Carbon Dioxide 29 mmol/L (22-30); Chloride 105 mmol/L (98-107); Glucose 93 mg/dL (74-99); Lipase 130 U/L (23-300); Non-African American GFR(CKD) 85 (>60 ml/min/1.73 sqM); Potassium 3.8 mmol/L (3.5-5.1); Sodium 138 mmol/L (137-145); Total Bilirubin 0.3 mg/dL (0.2-1.3); Total Protein 6.1 g/dL (6.3-8.2)
--- NOTE | 2023-10-17 23:36 | US ---
EXAMINATION TYPE: US abdomen limited DATE OF EXAM: 10/17/2023 COMPARISON: CT 10/08/2023, US08/13/2023 CLINICAL INDICATION: Female, 68 years old with history of ruq pain; RUQ pain x 9 hours. Patient state s she has had gallbladder issues x 21 years, hx gallstones. TECHNIQUE: Multiple sonographic images of the right upper quadrant are obtained. FINDINGS: EXAM MEASUREMENTS: Liver Length: 19.4 cm Gallbladder Wall: Not seen CBD: Obscured Right Kidney: 12.5 x 5.5 x 4.1 cm CAMERA ENGINEER NOTES: *Difficult and limited exam due to gas and patient body habitus. Pancreas: Limited Liver: *Enlarged and heterogeneous with increased attenuation. Gallbladder: Not seen with certainty. There is a great amount of gas and shadowing in the area of th e gallbladder limited visibility. Evidence for sonographic Gaytan's sign: Patient in pain throughout entire exam. CBD: Obscured Right Kidney: Hypoechoic area seen lower pole laterally: 5.2 x 4.0 x 3.6 cm. Suboptimal study. Visualized pancreas unremarkable. Portions obscured. Visualized liver is enlarged a nd heterogeneous in appearance suggesting diffuse fatty infiltration. Gallbladder not visualized with certainty. Right kidney shows no obvious hydronephrosis. Approximate 5.0 cm thin-walled simple cyst right kidney is redemonstrated. IMPRESSION: Suboptimal study. Gallbladder not well seen to evaluate. If concern for acute cholecystit is remains present further investigation with HIDA scan may be warranted.
[2023-10-17] MEDS: METOCLOPRAMIDE 5 MG/ML 2 ML VIAL IVP STA (23:40)
[2023-10-17] MEDS: MORPHINE SULFATE 4 MG/ML SYRINGE IVP STA (23:40)
[2023-10-18] MEDS: HYDROmorphone 1 MG/ML 1 ML SYRINGE IVP STA (00:53)
--- NOTE | 2023-10-18 00:53 | CT ---
EXAMINATION TYPE: CT abdomen pelvis w con DATE OF EXAM: 10/18/2023 HISTORY: EPIGASTRIC and right upper quadrant pain CT DLP: 2347.7mGycm Automated Exposure Control for Dose Reduction was Utilized. CONTRAST: CT scan of the abdomen and pelvis is performed with IV Contrast, patient injected with 100 mL of Isov ue 300. 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 LIVER/GB: There is new moderate to severe ill-defined fluid and fat stranding surrounding the gallbla dder for reference axial image 35. Near 1.0 cm calcified lesion adjacent to the inferior liver axial image 38 is redemonstrated. No new biliary dilatation. PANCREAS: No significant abnormality is seen. SPLEEN: No significant abnormality is seen. ADRENALS: No significant abnormality is seen. KIDNEYS: Exophytic near 4.0 cm simple appearing thin-walled cyst posteriorly from the right kidney is redemonstrated. BOWEL: Normal-appearing appendix from the cecum. No suspicious small or large bowel dilatation. UTERUS/ADNEXA: Anteverted uterus. Prominent right-sided pelvic phlebolith on axial image 82 is redemo nstrated. LYMPH NODES: No greater than 1cm abdominal or pelvic lymph nodes are appreciated. OSSEOUS STRUCTURES: No significant abnormality is seen. OTHER: Mild calcified plaque of the aorta extends into branch vessels. Moderate axial joint space los s in both hips. IMPRESSION: CT findings strongly suggestive of acute cholecystitis. Correlate clinically.
[2023-10-18] MEDS ORDERED: NALOXONE 0.4 MG/ML 1 ML VIAL IV PRN ×2 (01:33→22:07)
--- NOTE | 2023-10-18 01:40 | ED ---
Abdominal Pain HPI - General Chief Complaint: Abdominal Pain Stated Complaint: Chest pain, anxiety, gallbladder Time Seen by Provider: 10/17/23 22:17 Source: EMS Mode of arrival: EMS Limitations: no limitations - History of Present Illness Initial Comments: 68-year-old female presenting with chief complaint of right upper quadrant and epigastric pain. This came on suddenly tonight. Patient has had ongoing issues with her gallbladder, she follows with Dr. Sutherland. She states that she was post to get an MRI done but she has not yet. She has been seen in our facility multiple times for this pain and has signed out AMA multiple times. She admits to nausea and vomiting. No fever. No chest pain or difficulty breathing. - Related Data Home Medications Medication Instructions Recorded Confirmed Aspirin 81 mg PO HS 11/09/13 08/13/23 Levothyroxine Sodium [Synthroid] 125 mcg PO MOTUTHFRSA 11/09/13 08/13/23 Montelukast Sodium [Singulair] 10 mg PO DAILY 11/09/13 08/13/23 Lansoprazole [Prevacid] 30 mg PO DAILY 12/03/21 08/13/23 [place]-3 Fatty Acids/Fish Oil [Fish 1 cap PO DAILY 12/03/21 08/13/23 Oil 1,000 mg Softgel] Simethicone 180 mg PO BID 12/03/21 08/13/23 carBAMazepine [TEGretol] 200 mg PO BID 12/03/21 08/13/23 hydroCHLOROthiazide [Hydrodiuril] 25 mg PO DAILY 12/03/21 08/13/23 Acetaminophen-Codeine 300-30mg 1 tab PO Q8H PRN 08/13/23 08/13/23 [Tylenol w/codeine #3] Cholecalciferol [Vitamin D3 (25 50 mcg PO BID 08/13/23 08/13/23 Mcg = 1000 Iu)] Cyanocobalamin [Vitamin B-12] 500 mcg PO DAILY 08/13/23 08/13/23 Levothyroxine Sodium [Synthroid] 250 mcg PO SUWE 08/13/23 08/13/23 Loratadine-Pseudoeph 10-240 mg 1 tab PO DAILY 08/13/23 08/13/23 [Claritin-D 24 Hour] Ofloxacin 0.3% Ophth Soln [Ocuflox 1 drop LEFT EYE QID 08/13/23 08/13/23 Ophth Soln] Pregabalin [Lyrica] 150 mg PO BID 08/13/23 08/13/23 Propylene Glycol [Systane Complete] 1 drop BOTH EYES QID PRN 08/13/23 08/13/23 Previous Rx's Medication Instructions Recorded Ciprofloxacin HCl [Cipro] 500 mg PO BID 14 Days #28 tab 08/14/23 Dicyclomine [Bentyl] 20 mg PO QID PRN #20 tablet 10/07/23 HYDROcodone/APAP 5-325MG [[place] 1 tab PO Q6HR PRN 3 Days #12 tab 10/07/23 5-325] HYDROcodone/APAP 10-325MG [[place] 1 tab PO Q4HR PRN 3 Days #18 tab 10/08/23 10-325] Levofloxacin [Levaquin] 750 mg PO DAILY 1 Days #7 tab 10/08/23 Allergies Allergy/AdvReac Type Severity Reaction Status Date / Time Penicillins Allergy Unknown Verified 10/17/23 22:12 Childhood Sulfa (Sulfonamide Allergy Rash/Hives Verified 10/17/23 22:12 Antibiotics) clindamycin AdvReac Swelling Verified 10/17/23 22:12 Review of Systems ROS Statement: Those systems with pertinent positive or pertinent negative responses have been documented in the HPI. ROS Other: All systems not noted in ROS Statement are negative. Past Medical History Past Medical History: Asthma, GERD/Reflux, Hyperlipidemia, Osteoarthritis (OA), Thyroid Disorder Additional Past Medical History / Comment(s): TRIGEMINAL NEURALGIA, LT EYE keratoconjuntivitis sicca. CHANGE IN BOWEL HABITS-LOOSE STOOLS SINCE AUG 2021. HYPOGLYCEMIC History of Any Multi-Drug Resistant Organisms: None Reported Past Surgical History: No Surgical Hx Reported Additional Past Surgical History / Comment(s): BILAT cataracts, dental extraction. EGD Past Anesthesia/Blood Transfusion Reactions: No Reported Reaction Past Psychological History: Anxiety, Depression Smoking Status: Current every day smoker Past Alcohol Use History: None Reported Past Drug Use History: None Reported - Past Family History Mother Additional Family Medical History / Comment(s): ADOPTED General Exam Limitations: no limitations General appearance: alert, in no apparent distress Head exam: Present: atraumatic, normocephalic Eye exam: Present: normal appearance, EOMI Neck exam: Present: normal inspection Respiratory exam: Present: normal lung sounds bilaterally. Absent: respiratory distress, wheezes, rales, rhonchi, stridor Cardiovascular Exam: Present: regular rate, normal rhythm, normal heart sounds. Absent: systolic murmur, diastolic murmur, rubs, gallop, clicks GI/Abdominal exam: Present: soft, distended, tenderness. Absent: guarding, rebound, rigid Neurological exam: Present: alert, oriented X3 Psychiatric exam: Present: normal affect, normal mood Skin exam: Present: warm, dry Course Vital Signs 10/17/23 22:10 Temperature 97.6 F Pulse Rate 64 Respiratory 18 Rate Blood Pressure 153/75 O2 Sat by Pulse 97 Oximetry Medical Decision Making - Medical Decision Making Was pt. sent in by a medical professional or institution (, PA, SPL[facility] LEATHER MOSSER, urgent care, hospital, or skilled nursing...) When possible be specific @ -No Did you speak to anyone other than the patient for history (EMS, parent, family, police, friend...)? What history was obtained from this source @ -No Did you review nursing and triage notes (agree or disagree)? Why? @ -I reviewed and agree with nursing and triage notes Were old charts reviewed (outside hosp., previous admission, EMS record, old EKG, old radiological studies, urgent care reports/EKG's, skilled nursing records)? Report findings @ -Previous visits are reviewed Differential Diagnosis (chest pain, altered mental status, abdominal pain women, abdominal pain men, vaginal bleeding, weakness, fever, dyspnea, syncope, headache, dizziness, GI bleed, back pain, seizure, CVA, palpatations, mental health, musculoskeletal)? @ -[facility] Differential Abdominal Pain Women: Appendicitis, Cholecystitis, diverticulosis, ischemic bowel, pancreatitis, hepatitis, UTI, gastroenteritis, AAA, incarcerated hernia, bowel obstruction, constipation, inflammatory bowel, hepatitis, peptic ulcer disease, splenic infarction, perforated viscus, vulvitis, ovarian torsion, PID, kidney stone, placenta abruption... This is not meant to be an all-inclusive list EKG interpreted by me (3pts min.). @ -EKG shows sinus rhythm ventricular rate 65. [place] interval 181. QRS 93. QT 394. QTc 405. X-rays interpreted by me (1pt min.). @ -None done CT interpreted by me (1pt min.). @ -CT findings strongly suggestive of acute cholecystitis. U/S interpreted by me (1pt. min.). @ -Ultrasound is suboptimal study. Gallbladder not well-seen to evaluate. What testing was considered but not performed or refused? (CT, X-rays, U/S, labs)? Why? @ -None What meds were considered but not given or refused? Why? @ -None Did you discuss the management of the patient with other professionals (professionals i.e. DrLara, PA, SPL[employer] LEATHER MOSSER, lab, RT, psych nurse, social worker psychiatric, grip wrapper, teacher, police officer, dependency case manager)? Give summary @ -Spoke with Dr. Sutherland who accepted admission Was smoking cessation discussed for >3mins.? @ -No Was critical care preformed (if so, how long)? @ -No Were there social determinants of health that impacted care today? How? (Homelessness, low income, unemployed, alcoholism, drug addiction, transportation, low edu. Level, literacy, decrease access to med. care, custodial, rehab)? @ -No Was there de-escalation of care discussed even if they declined (Discuss DNR or withdrawal of care, Hospice)? DNR status @ -No What co-morbidities impacted this encounter? (DM, HTN, Smoking, COPD, CAD, Cancer, CVA, ARF, Chemo, Hep., AIDS, mental health diagnosis, sleep apnea, morbid obesity)? @ -None Was patient admitted / discharged? Hospital course, mention meds given and route, prescriptions, significant lab abnormalities, going to OR and other pertinent info. @ -68-year-old female presenting with chief complaint of epigastric and right upper quadrant pain. Patient has had ongoing issues with her gallbladder and follows with Dr. Sutherland. History and physical exam are conducted. No leukocytosis or anemia. ALT 51 alkaline phosphatase 137. Ultrasound is kennedy boptimal study. CT suggest acute cholecystitis. I spoke with Dr. Sutherland, will accept admission. I educated the patient on today's findings. I stressed to her that this will be a multiple day admission as she has signed out AMA in the past. Patient is agreeable to admission. She is started on antibiotics. I discussed this case with my attending Dr. Mcclelland Undiagnosed new problem with uncertain prognosis? @ -No Drug Therapy requiring intensive monitoring for toxicity (Heparin, Nitro, Insuli n, Cardizem)? @ -No Were any procedures done? @ -No Diagnosis/symptom? @ -Acute cholecystitis Acute, or Chronic, or Acute on Chronic? @ -Acute Uncomplicated (without systemic symptoms) or Complicated (systemic symptoms)? @ -Complicated Side effects of treatment? @ -No Exacerbation, Progression, or Severe Exacerbation? @ -No Poses a threat to life or bodily function? How? (Chest pain, USA, SD, pneumonia, PE, COPD, DKA, ARF, appy, cholecystitis, CVA, Diverticulitis, Homicidal, Suicidal, threat to staff... and all critical care pts) @ -Yes - Lab Data Result diagrams: 10/17/23 22:37 10/17/23 22:37 Lab Results 10/17/23 10/17/23 10/17/23 Range/Units 22:37 22:37 22:37 WBC 8.8 (3.8-10.6) k/uL RBC 4.90 (3.80-5.40) m/uL Hgb 13.6 (11.4-16.0) gm/dL Hct 42.1 (34.0-46.0) % MCV 85.9 (80.0-100.0) fL MCH 27.7 (25.0-35.0) pg MCHC 32.2 (31.0-37.0) g/dL RDW 14.0 (11.5-15.5) % Plt Count 165 (150-450) k/uL MPV 8.5 Neutrophils % 74 % Lymphocytes % 18 % Monocytes % 5 % Eosinophils % 2 % Basophils % 0 % Neutrophils # 6.4 (1.3-7.7) k/uL Lymphocytes # 1.6 (1.0-4.8) k/uL Monocytes # 0.4 (0-1.0) k/uL Eosinophils # 0.2 (0-0.7) k/uL Basophils # 0.0 (0-0.2) k/uL Sodium 138 (137-145) mmol/L Potassium 3.8 (3.5-5.1) mmol/L Chloride 105 (98-107) mmol/L Carbon Dioxide 29 (22-30) mmol/L Anion Gap 4 mmol/L BUN 20 H (7-17) mg/dL Creatinine 0.74 (0.52-1.04) mg/dL Est GFR (CKD-EPI)AfAm >90 (>60 ml/min/1.73 sqM) Est GFR (CKD-EPI)NonAf 85 (>60 ml/min/1.73 sqM) Glucose 93 (74-99) mg/dL Plasma Lactic Acid Kevin 0.9 (0.7-2.0) mmol/L Calcium 8.6 (8.4-10.2) mg/dL Total Bilirubin 0.3 (0.2-1.3) mg/dL AST 32 (14-36) U/L ALT 51 H (4-34) U/L Alkaline Phosphatase 137 H (38-126) U/L Troponin I (0.000-0.034) ng/mL Total Protein 6.1 L (6.3-8.2) g/dL Albumin 3.4 L (3.5-5.0) g/dL Amylase 48 (30-110) U/L Lipase 130 (23-300) U/L 10/17/23 Range/Units 22:37 WBC (3.8-10.6) k/uL RBC (3.80-5.40) m/uL Hgb (11.4-16.0) gm/dL Hct (34.0-46.0) % MCV (80.0-100.0) fL MCH (25.0-35.0) pg MCHC (31.0-37.0) g/dL RDW (11.5-15.5) % Plt Count (150-450) k/uL MPV Neutrophils % % Lymphocytes % % Monocytes % % Eosinophils % % Basophils % % Neutrophils # (1.3-7.7) k/uL Lymphocytes # (1.0-4.8) k/uL Monocytes # (0-1.0) k/uL Eosinophils # (0-0.7) k/uL Basophils # (0-0.2) k/uL Sodium (137-145) mmol/L Potassium (3.5-5.1) mmol/L Chloride (98-107) mmol/L Carbon Dioxide (22-30) mmol/L Anion Gap mmol/L BUN (7-17) mg/dL Creatinine (0.52-1.04) mg/dL Est GFR (CKD-EPI)AfAm (>60 ml/min/1.73 sqM) Est GFR (CKD-EPI)NonAf (>60 ml/min/1.73 sqM) Glucose (74-99) mg/dL Plasma Lactic Acid Kevin (0.7-2.0) mmol/L Calcium (8.4-10.2) mg/dL Total Bilirubin (0.2-1.3) mg/dL AST (14-36) U/L ALT (4-34) U/L Alkaline Phosphatase (38-126) U/L Troponin I <0.012 (0.000-0.034) ng/mL Total Protein (6.3-8.2) g/dL Albumin (3.5-5.0) g/dL Amylase (30-110) U/L Lipase (23-300) U/L Disposition Clinical Impression: Cholecystitis Disposition: ADMITTED IP TO THIS HOSP Condition: Fair Referrals: Jeremiah Ma MD [Primary Care Provider] - 1-2 days Time of Disposition: 01:40
[2023-10-18] MEDS: SODIUM CHLORIDE 0.9% 1,000 ML IV SCH (01:41)
[2023-10-18] MEDS: cefTRIAXone IN SWFI 1,000 MG/10 ML SYRINGE IVP STA (01:43)
[2023-10-18] MEDS: HYDROmorphone 1 MG/ML 1 ML SYRINGE IVP PRN ×2 (02:14→11:53)
[2023-10-18] MEDS: metroNIDAZOLE-NS PMX 500 MG in SALINE 1 100ML.BAG IVPB STA (02:23)
[2023-10-18] MEDS: KETOROLAC 15 MG/ML 1 ML VIAL IVP PRN (05:52)
[2023-10-18] MEDS ORDERED: traMADol 50 MG TAB PO PRN ×2 (08:46→11:26)
[2023-10-18] MEDS: PREGABALIN 75 MG CAP PO SCH (09:23)
[2023-10-18] MEDS: PANTOPRAZOLE 40 MG TABLET PO SCH (09:23)
[2023-10-18] MEDS: NICOTINE 14MG/24HR PATCH TRANSDERM SCH (09:23)
[2023-10-18] MEDS: ONDANSETRON 4 MG/2 ML VIAL IVP PRN (09:23)
[2023-10-18] MEDS: CHOLECALCIFEROL 25 MCG (1000 IU) TABLET PO SCH (09:24)
[2023-10-18] MEDS: ALPRAZolam 0.25 MG TAB PO PRN (09:24)
[2023-10-18] MEDS: carBAMazepine 200 MG TAB PO SCH (09:24)
[2023-10-18] MEDS: MONTELUKAST 10 MG TAB PO SCH (09:24)
[2023-10-18] MEDS: hydroCHLOROthiazide 25 MG TAB PO SCH (09:24)
[2023-10-18] MEDS: hydrALAZINE HCL 25 MG TAB PO PRN (09:25)
[2023-10-18] MEDS: SIMETHICONE 80 MG CHEWABLE PO SCH (09:25)
[2023-10-18] MEDS: CYANOCOBALAMIN 500 MCG TAB PO SCH (09:25)
[2023-10-18] MEDS: LEVOTHYROXINE 125 MCG TAB PO SCH (09:25)
[2023-10-18] MEDS: ACETAMINOPHEN IV (For NPO) 1,000 MG in EMPTY BAG 1 BAG IVPB SCH (11:52)
--- NOTE | 2023-10-18 12:34 | CA ---
Transthoracic Echo Report Name: Alana Peña Age: 68 Gender: F : 1955 Exam Date: 10/18/2023 11:55 Exam Location: [facility] Ht (in): 68 Wt (lb): 264 Ordering Physician: Marko Beaulieu MD ([id number]) Attending/Referring Phys: Mid Level Developer Joceline Marks RDCS Procedure CPT: Indications: CP, Surgical clearance Cardiac Hx: Technical Quality: Fair Contrast 1: Total Dose (mL): Contrast 2: Total Dose (mL): MEASUREMENTS (Male / Female) Normal Values 2D ECHO LV Diastolic Diameter PLAX 5.7 cm 4.2 - 5.9 / 3.9 - 5.3 cm LV Systolic Diameter PLAX 3.4 cm IVS Diastolic Thickness 1.1 cm 0.6 - 1.0 / 0.6 - 0.9 cm LVPW Diastolic Thickness 1.0 cm 0.6 - 1.0 / 0.6 - 0.9 cm LV Relative Wall Thickness 0.4 RV Internal Dim ED PLAX 3.2 cm LA Systolic Diameter LX 4.2 cm 3.0 - 4.0 / 2.7 - 3.8 cm LV Diastolic Volume MOD BP 77.1 cm??? 67 - 155 / 56 - 104 cm??? LV Systolic Volume MOD BP 32.1 cm??? - 58 / 19 - 49 cm??? LV Ejection Fraction MOD BP 58.3 % >= 55 % LV Cardiac Index MOD BP 1411.1 cm???/min???m??? LV Diastolic Volume MOD 4C 89.6 cm??? LV Systolic Volume MOD 4C 32.4 cm??? LV Ejection Fraction MOD 4C 63.9 % LV Cardiac Index MOD 4C 1797.8 cm???/min???m??? LV Diastolic Length 4C 6.8 cm LV Systolic Length 4C 6.3 cm LV Diastolic Volume MOD 2C 68.7 cm??? LV Systolic Volume MOD 2C 35.6 cm??? LV Ejection Fraction MOD 2C 48.2 % LV Cardiac Index MOD 2C 1039.6 cm???/min???m??? LV Diastolic Length 2C 7.4 cm LV Systolic Length 2C 6.3 cm LA Volume 44.2 cm??? 18 - 58 / 22 - 52 cm??? LA Volume Index 18.0 cm???/m??? 16 - 28 cm???/m??? M-MODE Aortic Root Diameter MM 3.4 cm MV E Point Septal Separation 1.6 cm AV Cusp Separation MM 2.3 cm DOPPLER MV Area PHT 2.2 cm??? Mitral E Point Velocity 71.8 cm/s Mitral A Point Velocity 95.0 cm/s Mitral E to A Ratio 0.8 MV Deceleration Time 348.9 ms FINDINGS Left Ventricle Left ventricular ejection fraction is estimated at 55-60 %. Mildly increased septal wall thickness. Mildly increased posterior wall thickness. Mildly increased left ventricular diastolic diameter. Right Ventricle Normal right ventricular size. Unable to estimate the right ventricular systolic pressure. Right Atrium Right atrium not well visualized. Left Atrium Mildly increased left atrial diameter. Mitral Valve Structurally normal mitral valve. No mitral stenosis, regurgitation or prolapse. Aortic Valve Trileaflet aortic valve. No aortic valve stenosis or regurgitation. Tricuspid Valve Structurally normal tricuspid valve. No tricuspid stenosis, regurgitation or prolapse. Pulmonic Valve Structurally normal pulmonic valve. Trace pulmonic regurgitation. Pericardium No pericardial effusion. Aorta Normal size aortic root and proximal ascending aorta. CONCLUSIONS Normal LV size and systolic function. No significant abnormality on the Doppler exam. Right-sided pressures were not well quantified. No pericardial effusion Previewed by: Dr. Marko Beaulieu MD (Electronically Signed) Final Date: 18 October 2023 12:33
[2023-10-18 12:46] LABS: ALT 105 U/L (4-34); AST 89 U/L (14-36); African American GFR (CKD) >90 (>60 ml/min/1.73 sqM); Albumin 3.6 g/dL (3.5-5.0); Albumin/Globulin Ratio 1.3; Alkaline Phosphatase 172 U/L (38-126); Anion Gap 7 mmol/L; Basophils % (A) 0 %; Blood Urea Nitrogen 13 mg/dL (7-17); Calcium 8.6 mg/dL (8.4-10.2); Carbon Dioxide 26 mmol/L (22-30); Chloride 105 mmol/L (98-107); Eosinophils % (A) 0 %; Globulin 2.7 g/dL; Glucose 133 mg/dL (74-99); HCT 42.3 % (34.0-46.0); HGB 13.7 gm/dL (11.4-16.0); Lymphocytes # (A) 1.4 k/uL (1.0-4.8); Lymphocytes % (A) 11 %; MCH 27.8 pg (25.0-35.0); MCHC 32.5 g/dL (31.0-37.0); MCV 85.8 fL (80.0-100.0); Mean Platelet Volume 8.6; Monocytes # (A) 0.7 k/uL (0-1.0); Monocytes % (A) 6 %; Neutrophils # (A) 10.5 k/uL (1.3-7.7); Neutrophils % (A) 82 %; Non-African American GFR(CKD) >90 (>60 ml/min/1.73 sqM); Platelet Count 177 k/uL (150-450); Potassium 3.9 mmol/L (3.5-5.1); RBC 4.93 m/uL (3.80-5.40); RDW 13.9 % (11.5-15.5); Sodium 138 mmol/L (137-145); Total Bilirubin 0.4 mg/dL (0.2-1.3); Total Protein 6.3 g/dL (6.3-8.2); WBC 12.8 k/uL (3.8-10.6)
[2023-10-18] MEDS: diazePAM 5 MG TAB PO STA (14:11)
--- NOTE | 2023-10-18 14:43 | P.GSHP ---
History of Present Illness H&P Date: 10/18/23 CHIEF COMPLAINT: Abdominal pain HISTORY OF PRESENT ILLNESS: This is a 68-year-old female presents with right upper quadrant and epigastric abdominal pain since yesterday around 2:30 in the afternoon. Patient reports having issues with her gallbladder. She was supposed to have an MRCP done and never had that completed. Patient has been having nausea and vomiting. Also had complained of chest pain and is to be seen by cardiology. Patient has been to the hospital multiple times and signed out AMA multiple times. Gallbladder ultrasound with a suboptimal study. Gallbladder not well-seen. CT scan abdomen pelvis reported findings to suggest acute cholecystitis. PAST MEDICAL HISTORY: See below PAST SURGICAL HISTORY: See below MEDICATIONS: See below ALLERGIES: See below SOCIAL HISTORY: No illicit drug use. REVIEW OF SYSTEMS: CONSTITUTIONAL: Denies fever or chills. HEENT: Denies blurred vision, vision changes, or eye pain. Denies hemoptysis CARDIOVASCULAR: Denies chest pain or pressure. RESPIRATORY: No shortness of breath. GASTROINTESTINAL: See HPI for pertinent findings HEMATOLOGIC: Denies bleeding disorders. GENITOURINARY: Denies any blood in urine or increased urinary frequency. SKIN: Denies pruitis. Denies rash. PHYSICAL EXAM: VITAL SIGNS: Reviewed GENERAL: Well-developed in no acute distress. HEENT: No sclera icterus. Extraocular movements grossly intact. Moist buccal mucosa. Head is atraumatic, normocephalic. No nasal drainage. ABDOMEN: Soft. Nondistended. RUQ and epigastric tenderness NEUROLOGIC: Alert and oriented. Cranial nerves II through XII grossly intact. LABORATORY DATA: WBC 8.8 up to 12.8 hemoglobin 13.7 platelets 177 Total bilirubin 0.4 AST is up from 32-89 ALT 51 up to 105 alk phos 137-172 lipase 130 Troponin negative EKG normal sinus rhythm IMAGING: CT scan abdomen pelvis reports strongly suggestive of acute cholecystitis Gallbladder ultrasound limited imaging unable to see gallbladder ASSESSMENT: 1. Acute cholecystitis 2. Elevated LFTs possible choledocholithiasis 3. Chest pain being evaluated by cardiology PLAN: -Patient scheduled for laparoscopic cholecystectomy, possible open tomorrow with Dr. Sutherland -N.p.o. after midnight -Patient scheduled for MRCP today -Continue pain management -Continue antibiotics -Continue IV fluids -Repeat LFTs in a.m. Physician Adventure Education Teacher note has been reviewed by physician. Signing provider agrees with the documented findings, assessment, and plan of care. I have personally seen and examined the patient, reviewed the APPRENTICE FUNERAL DIRECTOR /PAs history, exam and MDM and agree with the assessment and plan as written. Based on total visit time, I have performed more than 50% of the visit. As above: Patient having increased right upper quadrant pain. Previously she had refused admission because she wanted to be home with her . MRCP had been ordered by GI scheduled for early November. Came to the ER because of increasing pain. All in the right upper quadrant. Says it is hard to take a deep breath. Repeat CAT scan reviewed. All of her recent CAT scans are suggesting possible fistulization to the gallbladder. There is a stone on the outside of the gallbladder that likely is a result of perforation of the gallbladder from the gallstone. Liver enzymes mildly elevated. White blood cell count normal on admission slightly higher today. Options reviewed. Will proceed with MRCP already ordered. Will tentatively proceed with open cholecystectomy after the MRI is obtained. Given the degree of inflammatory changes do not feel that laparoscopic approach is worth the increased comorbidity at this time. Risks of bleeding, infection, bile leak, bile duct injury, retained common bile duct stone, hernia, possible need for colonic resection or small bowel resection, bile leak, anesthesia related complications were reviewed. The patient understands and wishes to proceed. Past Medical History Past Medical History: Asthma, GERD/Reflux, Hyperlipidemia, Osteoarthritis (OA), Thyroid Disorder Additional Past Medical History / Comment(s): TRIGEMINAL NEURALGIA, LT EYE keratoconjuntivitis sicca. CHANGE IN BOWEL HABITS-LOOSE STOOLS SINCE AUG 2021. HYPOGLYCEMIC History of Any Multi-Drug Resistant Organisms: None Reported Past Surgical History: No Surgical Hx Reported Additional Past Surgical History / Comment(s): BILAT cataracts, dental extraction. EGD Past Anesthesia/Blood Transfusion Reactions: No Reported Reaction Past Psychological History: Anxiety, Depression Smoking Status: Current every day smoker Past Alcohol Use History: None Reported Past Drug Use History: None Reported - Past Family History Mother Additional Family Medical History / Comment(s): ADOPTED Medications and Allergies Home Medications Medication Instructions Recorded Confirmed Type Aspirin 81 mg PO HS 11/09/13 10/18/23 History Levothyroxine Sodium [Synthroid] 125 mcg PO MOTUTHFRSA 11/09/13 10/18/23 History Montelukast Sodium [Singulair] 10 mg PO DAILY 11/09/13 10/18/23 History Lansoprazole [Prevacid] 30 mg PO DAILY 12/03/21 10/18/23 History [place]-3 Fatty Acids/Fish Oil [Fish 1 cap PO DAILY 12/03/21 10/18/23 History Oil 1,000 mg Softgel] Simethicone 180 mg PO BID 12/03/21 10/18/23 History carBAMazepine [TEGretol] 200 mg PO BID 12/03/21 10/18/23 History hydroCHLOROthiazide [Hydrodiuril] 25 mg PO DAILY 12/03/21 10/18/23 History Cholecalciferol [Vitamin D3 (25 50 mcg PO BID 08/13/23 10/18/23 History Mcg = 1000 Iu)] Cyanocobalamin [Vitamin B-12] 500 mcg PO DAILY 08/13/23 10/18/23 History Levothyroxine Sodium [Synthroid] 250 mcg PO SUWE 08/13/23 10/18/23 History Loratadine-Pseudoeph 10-240 mg 1 tab PO DAILY 08/13/23 10/18/23 History [Claritin-D 24 Hour] Pregabalin [Lyrica] 150 mg PO BID 08/13/23 10/18/23 History traMADol HCl [Ultram] 50 mg PO Q6HR PRN 10/18/23 10/18/23 History Allergies Allergy/AdvReac Type Severity Reaction Status Date / Time clindamycin Allergy Swelling Verified 10/18/23 07:20 Penicillins Allergy Unknown Verified 10/18/23 07:20 Childhood Sulfa (Sulfonamide Allergy Rash/Hives Verified 10/18/23 07:20 Antibiotics) Surgical - Exam Vital Signs Temp Pulse Resp BP Pulse Ox 97.6 F 64 18 153/75 97 10/17/23 22:10 10/17/23 22:10 10/17/23 22:10 10/17/23 22:10 10/17/23 22:10 Results - Labs 10/18/23 12:09 10/18/23 12:09 Abnormal Lab Results - Last 24 Hours (Table) 10/17/23 10/18/23 10/18/23 Range/Units 22:37 12:09 12:09 WBC 12.8 H (3.8-10.6) k/uL Neutrophils # 10.5 H (1.3-7.7) k/uL BUN 20 H (7-17) mg/dL Creatinine 0.51 L (0.52-1.04) mg/dL Glucose 133 H (74-99) mg/dL AST 89 H (14-36) U/L ALT 51 H 105 H (4-34) U/L Alkaline Phosphatase 137 H 172 H (38-126) U/L Total Protein 6.1 L (6.3-8.2) g/dL Albumin 3.4 L (3.5-5.0) g/dL Diabetes panel 10/17/23 10/18/23 Range/Units 22:37 12:09 Sodium 138 138 (137-145) mmol/L Potassium 3.8 3.9 (3.5-5.1) mmol/L Chloride 105 105 (98-107) mmol/L Carbon Dioxide 29 26 (22-30) mmol/L BUN 20 H 13 (7-17) mg/dL Creatinine 0.74 0.51 L (0.52-1.04) mg/dL Glucose 93 133 H (74-99) mg/dL Calcium 8.6 8.6 (8.4-10.2) mg/dL AST 32 89 H (14-36) U/L ALT 51 H 105 H (4-34) U/L Alkaline Phosphatase 137 H 172 H (38-126) U/L Total Protein 6.1 L 6.3 (6.3-8.2) g/dL Albumin 3.4 L 3.6 (3.5-5.0) g/dL Calcium panel 10/17/23 10/18/23 Range/Units 22:37 12:09 Calcium 8.6 8.6 (8.4-10.2) mg/dL Albumin 3.4 L 3.6 (3.5-5.0) g/dL Pituitary panel 10/17/23 10/18/23 Range/Units 22:37 12:09 Sodium 138 138 (137-145) mmol/L Potassium 3.8 3.9 (3.5-5.1) mmol/L Chloride 105 105 (98-107) mmol/L Carbon Dioxide 29 26 (22-30) mmol/L BUN 20 H 13 (7-17) mg/dL Creatinine 0.74 0.51 L (0.52-1.04) mg/dL Glucose 93 133 H (74-99) mg/dL Calcium 8.6 8.6 (8.4-10.2) mg/dL Adrenal panel 10/17/23 10/18/23 Range/Units 22:37 12:09 Sodium 138 138 (137-145) mmol/L Potassium 3.8 3.9 (3.5-5.1) mmol/L Chloride 105 105 (98-107) mmol/L Carbon Dioxide 29 26 (22-30) mmol/L BUN 20 H 13 (7-17) mg/dL Creatinine 0.74 0.51 L (0.52-1.04) mg/dL Glucose 93 133 H (74-99) mg/dL Calcium 8.6 8.6 (8.4-10.2) mg/dL Total Bilirubin 0.3 0.4 (0.2-1.3) mg/dL AST 32 89 H (14-36) U/L ALT 51 H 105 H (4-34) U/L Alkaline Phosphatase 137 H 172 H (38-126) U/L Total Protein 6.1 L 6.3 (6.3-8.2) g/dL Albumin 3.4 L 3.6 (3.5-5.0) g/dL
--- NOTE | 2023-10-18 15:00 | CONS ---
CONSULTATION HISTORY OF PRESENT ILLNESS: Alana Peña is a 68-year-old lady who has been admitted to the hospital with what seems to be an abdominal discomfort. She had an ultrasound of the abdomen performed and there is a suggestion that we may be dealing with probably acute or subacute cholecystitis. She has right upper quadrant pain that seemed to radiate to the epigastric and lower chest area as well. I was asked to see her regarding chest pain, possibly related to cardiac etiology. Looking at the clinical picture and talking to the patient, the pain appears to be more epigastric and right upper quadrant. Does not seem to have anginal pain. EKG does not reveal any significant abnormalities, but unfortunately there is some mild IVCD as well. No significant ST-segment changes. Initial set of troponin is unremarkable and EKG does not reveal any significant ST- segment changes to indicate ischemia. White count is slightly elevated and the patient is being considered for possible cholecystectomy by Dr. Sutherland. I performed an echocardiogram, which revealed good systolic function and patient is in sinus rhythm. She appears to be having some right upper quadrant pain, otherwise in no distress. PAST MEDICAL HISTORY: Remarkable for history of hypothyroidism, hypertension, gastroesophageal reflux disease, and hypertension. MEDICATIONS: Medications at home include, 1. Levothyroxine. 2. Hydrochlorothiazide. 3. Prevacid. 4. Some Lyrica. 5. Aspirin 81 mg daily. PHYSICAL EXAMINATION: VITAL SIGNS: Blood pressure is slightly elevated at 160/70, pulse rate is 68. HEENT: Unremarkable. Fundus was not examined by me. NECK: Supple. There is no JVD. I do not hear a carotid bruit. HEART: Reveals S1, S2 heard normally. No significant murmurs. LUNGS: Revealed decent air entry. ABDOMEN: Soft. There is mild right upper quadrant tenderness. EXTREMITIES: Lower extremities reveal diminished pulses. NEUROLOGIC: Central nervous system is normal. EKG revealed sinus mechanism, no acute changes. IMPRESSION: 1. Atypical chest pain. 2. Normal echocardiogram. 3. Probably acute or subacute cholecystitis. RECOMMENDATIONS: The patient can proceed with surgery, not knowing what her stress test information is, but clinical picture does not suggest any evidence of angina and LV function by echo is well preserved. Patient is a moderate risk. Advised cautious fluid administration, optimal BP control perioperatively. I am recommending that we give her hydralazine 25 mg p.o. t.i.d. Her elevated blood pressure could also be related to the pain that she had in the right upper quadrant area. No contraindication from a cardiac standpoint. We will continue to follow her as needed. MMKALIL / IJN: [id number] /
[2023-10-18] MEDS: METOCLOPRAMIDE 5 MG/ML 2 ML VIAL IVP PRN (15:29)
[2023-10-18] MEDS: LACTATED RINGERS 1,000 ML IV ONE ×2 (16:11→19:20)
[2023-10-18] MEDS: DEXAMETHASONE SOD PHOSPHATE 4 MG/ML 1 ML VIAL IVP ONE (16:31)
[2023-10-18] MEDS: fentaNYL (PF) 50 MCG/ML 2 ML AMP IVP ONE (16:31)
[2023-10-18] MEDS: ONDANSETRON 4 MG/2 ML VIAL IVP ONE (16:31)
[2023-10-18] MEDS: HEPARIN SODIUM,PORCINE 5,000 UNIT/ML 1 ML VIAL SQ ONE (16:31)
[2023-10-18] MEDS: metroNIDAZOLE-NS PMX 500 MG in SALINE 1 100ML.BAG IVPB SCH (16:47)
[2023-10-18] MEDS ORDERED: fentaNYL (PF) 50 MCG/ML 2 ML AMP ONE (17:54)
[2023-10-18] MEDS ORDERED: SUCCINYLCHOLINE CHLORIDE 200 MG/10 ML VIAL IV ONE (17:54)
[2023-10-18] MEDS ORDERED: LIDOCAINE 1% INJ 10MG/ML (20 ML MDV) ONE (17:54)
[2023-10-18] MEDS ORDERED: PROPOFOL 10 MG/ML 20 ML VIAL IV ONE (17:54)
[2023-10-18] MEDS ORDERED: HYDROmorphone (PF) 1 MG/ML ONE (17:54)
[2023-10-18] MEDS ORDERED: MIDAZOLAM 2 MG/2 ML VIAL ONE (17:54)
[2023-10-18] MEDS ORDERED: ROCURONIUM 10 MG/ML (5 ML VIAL) IV ONE (17:54)
--- NOTE | 2023-10-18 20:58 | P.OP ---
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 The patient was placed under general anesthesia. A right subcostal incision was made using the scalpel. Dissection through the subcutaneous fat and fascial layers to place using electrocautery. The falciform ligament was divided to assist with exposure. The patient's proximal transverse colon was de nsely adherent to the liver. Using both blunt dissection and cautery we were able to mobilize the colon. There was a perforation site consistent with fistulization. There was noted to be a small calcification in the omental fat adjacent to the gallbladder. Preoperatively I thought this may have represented a gallstone that had perforated the gallbladder but after looking at it it had more of a appearance of necrotic fat. This was sent to pathology for evaluation. The Bookwalter retractor was utilized. Careful dissection of the gallbladder took place allowing us to reach the infundibulum. There was significant scarring and edema of the gallbladder throughout. There was a large hole in the fundus of the gallbladder. Multiple stones were evacuated. Small vessels were clipped or ligated using 0 silk ties. The region of the cystic duct/infundibulum was divided using 2 separate 0 silk sutures. The gallbladder fossa was irrigated. No bleeding was seen. I then divided the colon proximal and distal to the perforation site using a linear 75 stapler. The mesentery was divided using LigaSure. A [id number] anastomosis then took place by firing the linear 75 stapler along the antimesenteric border after removing the antimesenteric portion of the staple line. The remaining defect was closed transversely using a TX 60 device. The abdomen was then irrigated. No bleeding was seen. A drain was brought into the abdomen from the right mid abdomen up along the right gutter to the gallbladder fossa. This was sutured in place using a 2-0 silk stitch. After copious irrigation the fascial layers were closed using running double-stranded #1 PDS sutures. The subcutaneous layer was closed using interrupted 3-0 Vicryl sutures. The skin was closed using gaviota. Sterile dressings were applied. DISPOSITION: Stable to recovery room
[2023-10-18] MEDS: ALBUTEROL NEBULIZED 2.5 MG/3 ML INHALATION ONE (21:11)
[2023-10-18] MEDS: HYDROmorphone 0.5 MG/0.5 ML SYRINGE IVP ONE ×2 (21:19→21:45)
[2023-10-18] MEDS ORDERED: ONDANSETRON 4 MG/2 ML VIAL IVP PRN (22:07)
--- NOTE | 2023-10-18 22:26 | P.ANPRN ---
Procedure Note - Anesthesia - Epidural/Spinal Epidural Continuous Time Out Performed: Yes Date of Procedure: 10/18/23 Procedure Start Time: 09:45 Procedure Stop Time: 09:55 Location of Patient: Phase I Indication: Acute Post-Operative Pain, Requested by Surgeon Sedation Type: Awake Preparation: Sterile Dressing Position: Sitting Catheter Depth at Skin (cm): 12 (lLoss of resistance at 7 cm) Catheter: Indwelling Needle Guage: 18 Injectate: 5 mL of 1.5% lidocaine with 1: 200,000 epinephrine, Narrative: epidural placed at T6-T7 level without difficulty, attempted at T7-T8 level. 5 mL of 1% preservative-free lidocaine injected after negative aspiration for better pain relief until to get the epidural solution from pharmacy. Blood Aspirated: No Pain Paresthesia on Injection Noted: No Events: Uneventful and Well Tolerated
[2023-10-18] MEDS: ROPIVACAINE 250 MG, fentaNYL (PF) 1,250 MCG in SODIUM CHLORIDE 0.9% 175 ML EPIDURAL PRN (22:43)
--- NOTE | 2023-10-18 23:41 | P.CONS ---
History of Present Illness - Reason for Consult Consult date: 10/18/23 Medical management Requesting physician: Ata Sutherland - Chief Complaint Abdominal pain, recurrent acute cholecystitis with transaminitis - History of Present Illness HISTORY OF PRESENT ILLNESS: 68-year-old female one of our office patient for the last year with past medical history of trigeminal neuralgia, hypertension, hypothyroidism, chronic allergy who has been in the emergency room few times with recurrent abdominal pain was hospitalized for transaminitis had MRCP and ultrasound was diagnosed with subacute and acute cholecystitis and had left the emergency room in the hospital for variety of reasons. Patient presented to the emergency department late last night complaining of ongoing right upper quadrant pain and discomfort with w orsening symptoms, Her laboratory values still showing significant branch myelitis with AST ALT are elevated no sign of pancreatitis with normal amylase and lipase, normal CBC and liver and kidney enzyme. Apparently the ER had contacted Dr. Sutherland who accepted admission last patient be hospitalized and probably will be going for lap fariha this morning. REVIEW OF SYSTEMS: CONSTITUTIONAL: Mildly overweight no acute respiratory distress EYES: No icterus sclerae, no conjunctivitis. EARS, NOSE, MOUTH, THROAT, and FACE: No sore throat, lymphadenopathy, carotid bruits or deformity. RESPIRATORY: No SOB cough or wheezes. CARDIOVASCULAR: No CP, Palpitation, PND, Orthopnea, or angina. Mild tachycardia GASTROINTESTINAL: Significant abdominal pain with nausea no vomiting no diarrhea significant right upper quadrant pain. GENITOURINARY: Negative for Hematuria or UTI, no kidney stones. INTEGUMENT/BREAST: Negative for any muscular injury with mild osteoarthritis.. HEMATOLOGIC/LYMPHATIC: Negative for bleed or purpura. MUSCULOSKELTAL: Negative for Myalgia or arthralgia. NEURLOGICAL: No LOC, Sz or syncope, blurred vision dizziness or abnormality.. Trigeminal neuralgia with multi medication. BEHAVIORAL/PSYCH: Negative. ENDOCRINE: Negative. PHYSICAL EXAMINATION: General Appearance: Alert, cooperative, no distress, appears stated age. Neck HEENT: Supple, no lymphadenopathy, no thyroid enlargement, no carotid bruits. Lungs: Clear to auscultation without crackles or wheezes no rhonchi, no deformity. Chest Wall: Chest wall normal expansion with deep inspiration no tenderness and no deformity was found on exam, no costochondral pain or discomfort. Heart: Regular rate and rhythm, S1, S2 normal, no murmur, rub or gallop. Back: Symmetric, no curvature, ROM normal, no CVA tenderness. Abdomen: Soft with significant tenderness and discomfort in the right upper quadrant and mid abdominal area no rebound or rigidity. Extremities: Extremities normal, atraumatic, no cyanosis or edema. Pulses: 2+ and symmetric. Skin: Skin color, texture, tugor normal, no rashes or lesions. Neurologic: Alert oriented x3 cranial nerves II through XII intact, no motor deficit, no abnormal balance or gait. ASSESSMENT AND PLAN: _Acute cholecystitis: With severe worsening symptoms: Patient had positive MRCP and positive CT and ultrasound she had seen Dr. Sutherland previously and had laser surgery few times, patient is severely symptomatic she will be going for surgery this time. _Severe abdominal pain: With the current symptom of cholecystitis and cholelithiasis no sign of pancreatitis so far patient will be going for MRCP today and will follow clear hopefully surgery afterward. _Hypertension: Has been doing well on combination of hydrochlorothiazide if needed will use smaller dose of amlodipine. _Trigeminal neuralgia: Has been on Tegretol, and pregabalin 150 mg twice a day. _Hypothyroidism: Resume her levothyroxine at 125 mcg daily. _Severe allergy: Continue combination of montelukast along with Claritin-D 24 hours _Chronic neuropathy: Will continue pregabalin 150 mg twice a day. _GI prophylaxis: Has been on Prevacid 30 mg a day. _Nicotine dependency will require to be on nicotine patch. CODE STATUS: Full code. Dr. Sutherland thank you much for the consult if I can be any further help to please let me know. Past Medical History Past Medical History: Asthma, GERD/Reflux, Hyperlipidemia, Osteoarthritis (OA), Thyroid Disorder Additional Past Medical History / Comment(s): TRIGEMINAL NEURALGIA, LT EYE keratoconjuntivitis sicca. CHANGE IN BOWEL HABITS-LOOSE STOOLS SINCE AUG 2021. HYPOGLYCEMIC History of Any Multi-Drug Resistant Organisms: None Reported Past Surgical History: No Surgical Hx Reported Additional Past Surgical History / Comment(s): BILAT cataracts, dental extraction. EGD Past Anesthesia/Blood Transfusion Reactions: No Reported Reaction Past Psychological History: Anxiety, Depression Smoking Status: Current every day smoker Past Alcohol Use History: None Reported Past Drug Use History: None Reported - Past Family History Mother Additional Family Medical History / Comment(s): ADOPTED Medications and Allergies Home Medications Medication Instructions Recorded Confirmed Type Aspirin 81 mg PO HS 11/09/13 10/18/23 History Levothyroxine Sodium [Synthroid] 125 mcg PO MOTUTHFRSA 11/09/13 10/18/23 History Montelukast Sodium [Singulair] 10 mg PO DAILY 11/09/13 10/18/23 History Lansoprazole [Prevacid] 30 mg PO DAILY 12/03/21 10/18/23 History [place]-3 Fatty Acids/Fish Oil [Fish 1 cap PO DAILY 12/03/21 10/18/23 History Oil 1,000 mg Softgel] Simethicone 180 mg PO BID 12/03/21 10/18/23 History carBAMazepine [TEGretol] 200 mg PO BID 12/03/21 10/18/23 History hydroCHLOROthiazide [Hydrodiuril] 25 mg PO DAILY 12/03/21 10/18/23 History Cholecalciferol [Vitamin D3 (25 50 mcg PO BID 08/13/23 10/18/23 History Mcg = 1000 Iu)] Cyanocobalamin [Vitamin B-12] 500 mcg PO DAILY 08/13/23 10/18/23 History Levothyroxine Sodium [Synthroid] 250 mcg PO SUWE 08/13/23 10/18/23 History Loratadine-Pseudoeph 10-240 mg 1 tab PO DAILY 08/13/23 10/18/23 History [Claritin-D 24 Hour] Pregabalin [Lyrica] 150 mg PO BID 08/13/23 10/18/23 History traMADol HCl [Ultram] 50 mg PO Q6HR PRN 10/18/23 10/18/23 History Allergies Allergy/AdvReac Type Severity Reaction Status Date / Time clindamycin Allergy Swelling Verified 10/18/23 07:20 Penicillins Allergy Unknown Verified 10/18/23 07:20 Childhood Sulfa (Sulfonamide Allergy Rash/Hives Verified 10/18/23 07:20 Antibiotics) Physical Exam Vitals: Vital Signs Temp Pulse Resp BP Pulse Ox 10/18/23 05:46 97.8 F 71 22 179/70 95 10/18/23 02:52 98.3 F 68 22 179/76 95 10/17/23 22:10 97.6 F 64 18 153/75 97 Intake and Output 10/17/23 10/17/23 10/18/23 14:59 22:59 06:59 Other: Weight 119.748 kg Results CBC & Chem 7: 10/18/23 12:09 10/18/23 12:09 Labs: Abnormal Lab Results - Last 24 Hours (Table) 10/17/23 Range/Units 22:37 BUN 20 H (7-17) mg/dL ALT 51 H (4-34) U/L Alkaline Phosphatase 137 H (38-126) U/L Total Protein 6.1 L (6.3-8.2) g/dL Albumin 3.4 L (3.5-5.0) g/dL
[2023-10-19] MEDS ORDERED: NALBUPHINE 10 MG/ML (10 ML MDV) IV PRN
[2023-10-19 04:51] LABS: Glucose,Whole Blood 104 mg/dL (70-110)
[2023-10-19] MEDS ORDERED: IPRATROPIUM-ALBUTEROL 3 ML NEB INHALATION PRN (07:38)
[2023-10-19 07:44] LABS: Basophils # (A) 0.1 k/uL (0-0.2); Basophils % (A) 0 %; Eosinophils % (A) 0 %; HCT 43.5 % (34.0-46.0); HGB 13.8 gm/dL (11.4-16.0); Hypochromasia Slight; Lymphocytes # (A) 1.4 k/uL (1.0-4.8); Lymphocytes % (A) 9 %; MCH 28.3 pg (25.0-35.0); MCHC 31.7 g/dL (31.0-37.0); MCV 89.4 fL (80.0-100.0); Mean Platelet Volume 9.5; Monocytes # (A) 1.1 k/uL (0-1.0); Monocytes % (A) 7 %; Neutrophils # (A) 12.5 k/uL (1.3-7.7); Neutrophils % (A) 81 %; Platelet Count 171 k/uL (150-450); RBC 4.87 m/uL (3.80-5.40); RDW 14.3 % (11.5-15.5); WBC 15.3 k/uL (3.8-10.6)
[2023-10-19] MEDS: PIPERACILLIN-TAZOBACTAM 3.375 GM in SODIUM CHLORIDE 0.9% 100 ML IVPB SCH (09:47)
[2023-10-19 11:06] LABS: ALT 82 U/L (8-44); AST 72 U/L (13-35); Albumin 3.5 g/dL (3.8-4.9); Albumin/Globulin Ratio 1.52 Ratio (1.60-3.17); Alkaline Phosphatase 134 U/L (41-126); BUN/Creat Ratio 13.56 Ratio (12.00-20.00); Blood Urea Nitrogen 12.2 mg/dL (9.0-27.0); Calcium 8.8 mg/dL (8.7-10.3); Carbon Dioxide 26.1 mmol/L (21.6-31.8); Chloride 99 mmol/L (96-109); Globulin 2.3 g/dL (1.6-3.3); Glucose 97 mg/dL (70-110); Potassium 3.7 mmol/L (3.5-5.5); Sodium 139 mmol/L (135-145); Total Bilirubin 0.3 mg/dL (0.3-1.2); Total Protein 5.8 g/dL (6.2-8.2)
--- NOTE | 2023-10-19 11:37 | P.PN ---
Progress Note - Text Progress Note Date: 10/19/23 Patient was seen and evaluated at bedside. Postop day # 1 status post Open cholecystectomy, partial colectomy, partial omentectomy. Patient epidural solution grade increased from 7 mL per hour to 9 mL per hour last night for better pain control during activities. Patient is comfortably lying on the bed, able to cough without difficulty. Rated pain levels are 2-3 out of 10 in severity. with activities, moving her pain levels are 5 out of 10 in severity. Moving extremities well without any difficulty. He denied any red flag symptoms, pain over the catheter site. Physical exam: on examination noticed epidural catheter tip disconnected from the epidural connector. As per the RN they have no issues with epidural until patient tried to sit up on her side of the bed. Vital signs: stable, afebrile Catheter site: Clean, and intact Dressing. no tenderness over the catheter ar ea. Moving lower extremities without difficulty. Assessment: Acute postoperative pain secondary to Open cholecystectomy, partial colectomy, partial omentectomy Plan: epidural catheter removed in total, and sterile dressing applied over the epidural catheter entry site. Patient was given an option of redoing the epidural as catheter tip discontinued from the epidural connector. Patient wants some time to think and after discussing with family will let us know , meanwhile she wants to try IV or oral medications if needed for pain. Discussed with primary team. Call anesthesia as needed.
--- NOTE | 2023-10-19 13:01 | P.PN ---
Subjective Progress Note Date: 10/19/23 CHIEF COMPLAINT: Acute cholecystitis HISTORY OF PRESENT ILLNESS: Patient is postop day #1 status post open cholecystectomy, partial colectomy and partial omentectomy for acute cholecystitis with cholecysto colonic fistula. Patient has epidural for pain. Her pain is controlled. She complains of pain with coughing. Denies any nausea or vomiting. Has Macedo catheter in place. Afebrile. WBC is up from 12.8-15.3 Hgb 13.8 platelets 171 creatinine 0.9 total bili 0.3 LFTs trending down. GAYLE drain 40 mL output PHYSICAL EXAM: VITAL SIGNS: Reviewed. GENERAL: Well-developed in no acute distress. ABDOMEN: Soft. Nondistended. Tender at incision site. Incisional dressing clean dry and intact. GAYLE drain serosanguineous NEUROLOGIC: Alert and oriented. Cranial nerves II through XII grossly intact. ASSESSMENT: 1. Acute cholecystitis with cholecysto colonic fistula PLAN: -Continue epidural for pain control -Continue Macedo catheter -Abdominal binder ordered -Incentive spirometer ordered -Okay for mouth swabs -Keep patient n.p.o. -Continue antibiotics. Medicine service discontinued Rocephin and added Zosyn -Continue IV fluids -Encourage patient to increase activity level -Consult PT -Repeat labs in a.m. Physician Savings Teller note has been reviewed by physician. Signing provider agrees with the documented findings, assessment, and plan of care. I have personally seen and examined the patient, reviewed the PUBLIC WELFARE DIRECTOR /PAs history, exam and MDM and agree with the assessment and plan as written. Based on total visit time, I have performed more than 50% of the visit. As above: Patient doing well today. Pain is well-controlled. GAYLE serosanguineous. Dressing is clean and dry. Continue increasing activity. Begin liquid diet. Objective - Vital Signs Vital signs: Vital Signs Temp 97.7 F 10/19/23 07:00 Pulse 85 10/19/23 08:30 Resp 18 10/19/23 08:30 BP 111/61 10/19/23 07:00 Pulse Ox 92 L 10/19/23 09:24 FiO2 Intake & Output 10/18/23 10/19/23 10/19/23 18:59 06:59 18:59 Intake Total 800 659.433 Output Total 850 240 450 Balance -50 419.433 -450 Weight 119.748 kg Intake: IV 800 600 Intake, IV Titration 59.433 Amount Ropivacaine 250 mg 59.433 fentaNYL (PF) 1,250 mcg In Sodium Chloride 0.9% 175 ml @ Per Protocol EPIDURAL .Q0M PRN Rx#: [id number] Output: Drainage 40 Right Upper Anterior 40 Abdomen Urine 750 200 450 Uretheral (Macedo) 200 450 Estimated Blood Loss 100 Other: Voiding Method Toilet Toilet Toilet # Voids 2 - Labs CBC & Chem 7: 10/19/23 06:14 10/19/23 06:14 Labs: Abnormal Lab Results - Last 24 Hours (Table) 10/19/23 10/19/23 Range/Units 06:14 06:14 WBC 15.3 H (3.8-10.6) k/uL Neutrophils # 12.5 H (1.3-7.7) k/uL Monocytes # 1.1 H (0-1.0) k/uL Anion Gap 13.90 H (4.00-12.00) mmol/L AST 72 H (13-35) U/L ALT 82 H (8-44) U/L Alkaline Phosphatase 134 H (41-126) U/L Total Protein 5.8 L (6.2-8.2) g/dL Albumin 3.5 L (3.8-4.9) g/dL Albumin/Globulin Ratio 1.52 L (1.60-3.17) Ratio
[2023-10-19 16:54] LABS: Glucose,Whole Blood 92 mg/dL (70-110)
[2023-10-19] MEDS: MELATONIN 5 MG TABLET PO SCH (22:32)
--- NOTE | 2023-10-20 05:39 | P.PN ---
Subjective Progress Note Date: 10/19/23 HISTORY OF PRESENT ILLNESS: 68-year-old female one of our office patient for the last year with past medical history of trigeminal neuralgia, hypertension, hypothyroidism, chronic allergy who has been in the emergency room few times with recurrent abdominal pain was hospitalized for transaminitis had MRCP and ultrasound was diagnosed with subacute and acute cholecystitis and had left the emergency room in the hospital for variety of reasons. Patient presented to the emergency department late last night complaining of ongoing right upper quadrant pain and discomfort with wo rsening symptoms, Her laboratory values still showing significant branch myelitis with AST ALT are elevated no sign of pancreatitis with normal amylase and lipase, normal CBC and liver and kidney enzyme. Apparently the ER had contacted Dr. Sutherland who accepted admission last patient be hospitalized and probably will be going for lap fariha this morning. 10/19/2023: Patient ended up going for open gallbladder surgery yesterday successfully with Dr. Sutherland apparently found to have perforated gallbladder along with fistula to the colon area, gallbladder was removed and the colon was repair the patient had drainage tube left. She is recovering nicely still in quite the pain otherwise hemodynamically stable. Through the night no major complication blood pressure remain well-controlled she is still n.p.o. at this point we will switch her medication to IV. REVIEW OF SYSTEMS: CONSTITUTIONAL: Mildly overweight no acute respiratory distress EYES: No icterus sclerae, no conjunctivitis. EARS, NOSE, MOUTH, THROAT, and FACE: No sore throat, lymphadenopathy, carotid bruits or deformity. RESPIRATORY: No SOB cough or wheezes. CARDIOVASCULAR: No CP, Palpitation, PND, Orthopnea, or angina. Mild tachycardia GASTROINTESTINAL: Significant abdominal pain with nausea no vomiting no diarrhea significant right upper quadrant pain. GENITOURINARY: Negative for Hematuria or UTI, no kidney stones. INTEGUMENT/BREAST: Negative for any muscular injury with mild osteoarthritis.. HEMATOLOGIC/LYMPHATIC: Negative for bleed or purpura. MUSCULOSKELTAL: Negative for Myalgia or arthralgia. NEURLOGICAL: No LOC, Sz or syncope, blurred vision dizziness or abnormality.. Trigeminal neuralgia with multi medication. BEHAVIORAL/PSYCH: Negative. ENDOCRINE: Negative. PHYSICAL EXAMINATION: General Appearance: Alert, cooperative, no distress, appears stated age. Neck HEENT: Supple, no lymphadenopathy, no thyroid enlargement, no carotid brui ts. Lungs: Clear to auscultation without crackles or wheezes no rhonchi, no deformity. Chest Wall: Chest wall normal expansion with deep inspiration no tenderness and no deformity was found on exam, no costochondral pain or discomfort. Heart: Regular rate and rhythm, S1, S2 normal, no murmur, rub or gallop. Back: Symmetric, no curvature, ROM normal, no CVA tenderness. Abdomen: Soft with significant tenderness and discomfort in the right upper quadrant and mid abdominal area no rebound or rigidity. Extremities: Extremities normal, atraumatic, no cyanosis or edema. Pulses: 2+ and symmetric. Skin: Skin color, texture, tugor normal, no rashes or lesions. Neurologic: Alert oriented x3 cranial nerves II through XII intact, no motor deficit, no abnormal balance or gait. ASSESSMENT AND PLAN: _Acute cholecystitis: With severe worsening symptoms: She ended up going for open surgery found to have fistula along with perforated gallbladder still has been drainage tube but no NG tube at this point. _Severe abdominal pain: Currently explained with the perforated gallbladder along with the fistula with the colon area, post open surgery. _Hypertension: Has been doing well on combination of hydrochlorothiazide if needed will use smaller dose of amlodipine. Blood pressure is well-controlled. _Trigeminal neuralgia: Has been on Tegretol, and pregabalin 150 mg twice a day. _Hypothyroidism: Resume her levothyroxine at 125 mcg daily. _Severe allergy: Continue combination of montelukast along with Claritin-D 24 hours _Chronic neuropathy: Will continue pregabalin 150 mg twice a day. _GI prophylaxis: Has been on Prevacid 30 mg a day. _Nicotine dependency will require to be on nicotine patch. _Severe anxiety attacks: Continue alprazolam if needed an SSRI will be a good idea. _Pain management: Still on morphine sulfate and hydrocodone orally. Objective - Vital Signs Vital signs: Vital Signs Temp 99.4 F 10/19/23 02:09 Pulse 81 10/19/23 02:09 Resp 16 10/19/23 02:09 BP 109/47 10/19/23 02:09 Pulse Ox 91 L 10/19/23 02:09 FiO2 Intake & Output 10/18/23 10/18/23 10/19/23 06:59 18:59 06:59 Intake Total 800 622.633 Output Total 850 240 Balance -50 382.633 Weight 119.748 kg 119.748 kg Intake: IV 800 600 Intake, IV Titration 22.633 Amount Ropivacaine 250 mg 22.633 fentaNYL (PF) 1,250 mcg In Sodium Chloride 0.9% 175 ml @ Per Protocol EPIDURAL .Q0M PRN Rx#: [id number] Output: Drainage 40 Right Upper Anterior 40 Abdomen Urine 750 200 Uretheral ([place]) 200 Estimated Blood Loss 100 Other: Voiding Method Toilet Toilet # Voids 2 - Labs CBC & Chem 7: 10/19/23 06:14 10/19/23 06:14 Labs: Abnormal Lab Results - Last 24 Hours (Table) 10/18/23 10/18/23 Range/Units 12:09 12:09 WBC 12.8 H (3.8-10.6) k/uL Neutrophils # 10.5 H (1.3-7.7) k/uL Creatinine 0.51 L (0.52-1.04) mg/dL Glucose 133 H (74-99) mg/dL AST 89 H (14-36) U/L ALT 105 H (4-34) U/L Alkaline Phosphatase 172 H (38-126) U/L
[2023-10-20] MEDS: LEVOTHYROXINE 125 MCG TAB PO SCH (06:37)
[2023-10-20 06:46] LABS: African American GFR (CKD) >90 (>60 ml/min/1.73 sqM); Anion Gap 10 mmol/L; Blood Urea Nitrogen 19 mg/dL (7-17); Calcium 8.3 mg/dL (8.4-10.2); Carbon Dioxide 20 mmol/L (22-30); Chloride 109 mmol/L (98-107); Glucose 89 mg/dL (74-99); Non-African American GFR(CKD) >90 (>60 ml/min/1.73 sqM); Sodium 139 mmol/L (137-145)
[2023-10-20 06:51] LABS: Basophils # (A) 0.1 k/uL (0-0.2); Basophils % (A) 0 %; Eosinophils % (A) 0 %; HCT 40.5 % (34.0-46.0); HGB 13.6 gm/dL (11.4-16.0); Lymphocytes # (A) 1.9 k/uL (1.0-4.8); Lymphocytes % (A) 10 %; MCH 28.4 pg (25.0-35.0); MCHC 33.5 g/dL (31.0-37.0); MCV 84.8 fL (80.0-100.0); Monocytes # (A) 1.8 k/uL (0-1.0); Monocytes % (A) 10 %; Neutrophils # (A) 14.1 k/uL (1.3-7.7); Neutrophils % (A) 77 %; Platelet Count 232 k/uL (150-450); RBC 4.77 m/uL (3.80-5.40); RDW 14.2 % (11.5-15.5); WBC 18.4 k/uL (3.8-10.6)
--- NOTE | 2023-10-20 12:27 | P.PN ---
Subjective Progress Note Date: 10/20/23 CHIEF COMPLAINT: Acute cholecystitis HISTORY OF PRESENT ILLNESS: Patient is postop day #2 status post open cholecystectomy, partial colectomy and partial omentectomy for acute cholecystitis with cholecysto colonic fistula. Epidural removed yesterday. Pain controlled. Denies any nausea or vomiting. Afebrile. White count did go up from 15-18.4 Hgb 13.6 platelets 232 PHYSICAL EXAM: VITAL SIGNS: Reviewed. GENERAL: Well-developed in no acute distress. ABDOMEN: Soft. Nondistended. Tender at incision site. Incisional dressing clean dry and intact. GAYLE drain serosanguineous NEUROLOGIC: Alert and oriented. Cranial nerves II through XII grossly intact. ASSESSMENT: 1. Acute cholecystitis with cholecysto colonic fistula PLAN: -Discontinue [place] catheter -Check CBC and CMP in a.m. -Continue antibiotics -Continue clear liquids -Continue IV fluids -Encourage patient to increase activity level -Continue pain management -DVT prophylaxis subcu heparin Physician Art Framing Manager note has been reviewed by physician. Signing provider agrees with the documented findings, assessment, and plan of care. Objective - Vital Signs Vital signs: Vital Signs Temp 98.7 F 10/20/23 07:00 Pulse 84 10/20/23 07:25 Resp 14 10/20/23 01:17 BP 138/75 10/20/23 07:00 Pulse Ox 95 10/20/23 07:00 FiO2 Intake & Output 10/19/23 10/20/23 10/20/23 18:59 06:59 18:59 Output Total 1380 180 Balance -1380 -180 Output: Drainage 30 30 Right Upper Anterior 30 30 Abdomen Urine 1350 150 Uretheral ([place]) 1350 150 Other: Voiding Method Toilet Indwelling Catheter Indwelling Catheter - Labs CBC & Chem 7: 10/20/23 06:01 10/20/23 06:01 Labs: Abnormal Lab Results - Last 24 Hours (Table) 10/20/23 10/20/23 Range/Units 06:01 06:01 WBC 18.4 H (3.8-10.6) k/uL Neutrophils # 14.1 H (1.3-7.7) k/uL Monocytes # 1.8 H (0-1.0) k/uL Chloride 109 H (98-107) mmol/L Carbon Dioxide 20 L (22-30) mmol/L BUN 19 H (7-17) mg/dL Calcium 8.3 L (8.4-10.2) mg/dL Microbiology - Last 24 Hours (Table) 10/18/23 02:05 Blood Culture - Preliminary Blood 10/18/23 01:50 Blood Culture - Preliminary Blood
[2023-10-20] MEDS: HEPARIN SODIUM,PORCINE 5,000 UNIT/ML 1 ML VIAL SQ SCH (13:38)
[2023-10-20] MEDS: SIMETHICONE 40 MG/0.6 ML DROPS 2,000 MG/30 ML BOTTLE PO SCH (13:38)
[2023-10-20] MEDS: LANSOPRAZOLE 30 MG PO SCH (18:50)
--- NOTE | 2023-10-20 21:23 | PN ---
PROGRESS NOTE Mrs. Peña underwent gallbladder surgery, also had colon resection and omentectomy, doing well post procedure, remains in sinus rhythm, hemodynamically stable. PHYSICAL EXAMINATION: HEART: S1 and S2 heard normally. LUNGS: Revealed decent air entry. ABDOMEN: Exam was deferred. We will continue current medical regimen and I will see the patient as needed. MMODL / IJN: [id number] /
[2023-10-21] MEDS: HYDROcodone/APAP 5-325MG 1 EACH TAB PO PRN (04:19)
--- NOTE | 2023-10-21 05:44 | P.PN ---
Subjective Progress Note Date: 10/20/23 HISTORY OF PRESENT ILLNESS: 68-year-old female one of our office patient for the last year with past medical history of trigeminal neuralgia, hypertension, hypothyroidism, chronic allergy who has been in the emergency room few times with recurrent abdominal pain was hospitalized for transaminitis had MRCP and ultrasound was diagnosed with subacute and acute cholecystitis and had left the emergency room in the hospital for variety of reasons. Patient presented to the emergency department late last night complaining of ongoing right upper quadrant pain and discomfort with wo rsening symptoms, Her laboratory values still showing significant branch myelitis with AST ALT are elevated no sign of pancreatitis with normal amylase and lipase, normal CBC and liver and kidney enzyme. Apparently the ER had contacted Dr. Sutherland who accepted admission last patient be hospitalized and probably will be going for lap fariha this morning. 10/19/2023: Patient ended up going for open gallbladder surgery yesterday successfully with Dr. Sutherland apparently found to have perforated gallbladder along with fistula to the colon area, gallbladder was removed and the colon was repair the patient had drainage tube left. She is recovering nicely still in quite the pain otherwise hemodynamically stable. Through the night no major complication blood pressure remain well-controlled she is still n.p.o. at this point we will switch her medication to IV. 10/20/2023: She is feeling slightly better, pain is under control still using IV medication was switched to hydrocodone orally, still on Zosyn currently culture remain negative. Her [place]o catheter will come out today, titrate diet still have NG tube should initiate physical therapy to help patient ambulate. Her white blood cell climb up to 18,000 her creatinine kidney function is still holding well at this point liver function tests are still fluctuating slight better but hopefully will return back to its baseline in the next few days. If culture remain negative patient antibiotic can be stopped before leaving the hospital. REVIEW OF SYSTEMS: CONSTITUTIONAL: Mildly overweight no acute respiratory distress EYES: No icterus sclerae, no conjunctivitis. EARS, NOSE, MOUTH, THROAT, and FACE: No sore throat, lymphadenopathy, carotid bruits or deformity. RESPIRATORY: No SOB cough or wheezes. CARDIOVASCULAR: No CP, Palpitation, PND, Orthopnea, or angina. Mild tachycardia GASTROINTESTINAL: Significant abdominal pain with nausea no vomiting no diarrhea significant right upper quadrant pain. GENITOURINARY: Negative for Hematuria or UTI, no kidney stones. INTEGUMENT/BREAST: Negative for any muscular injury with mild osteoarthritis.. HEMATOLOGIC/LYMPHATIC: Negative for bleed or purpura. MUSCULOSKELTAL: Negative for Myalgia or arthralgia. NEURLOGICAL: No LOC, Sz or syncope, blurred vision dizziness or abnormality.. Trigeminal neuralgia with multi medication. BEHAVIORAL/PSYCH: Negative. ENDOCRINE: Negative. PHYSICAL EXAMINATION: General Appearance: Alert, cooperative, no distress, appears stated age. Neck HEENT: Supple, no lymphadenopathy, no thyroid enlargement, no carotid bruits. Lungs: Clear to auscultation without crackles or wheezes no rhonchi, no deformity. Chest Wall: Chest wall normal expansion with deep inspiration no tenderness and no deformity was found on exam, no costochondral pain or discomfort. Heart: Regular rate and rhythm, S1, S2 normal, no murmur, rub or gallop. Back: Symmetric, no curvature, ROM normal, no CVA tenderness. Abdomen: Soft with significant tenderness and discomfort in the right upper quadrant and mid abdominal area no rebound or rigidity. Extremities: Extremities normal, atraumatic, no cyanosis or edema. Pulses: 2+ and symmetric. Skin: Skin color, texture, tugor normal, no rashes or lesions. Neurologic: Alert oriented x3 cranial nerves II through XII intact, no motor deficit, no abnormal balance or gait. ASSESSMENT AND PLAN: _Acute cholecystitis: With severe worsening symptoms: She ended up going for open surgery found to have fistula along with perforated gallbladder still has been drainage tube but no NG tube at this point. Titrate physical therapy i ncrease diet continue pain management and oral pain meds. _Severe abdominal pain: Currently explained with the perforated gallbladder along with the fistula with the colon area, post open surgery. Doing slightly better. _Leukocytosis: With the aggressiveness of the gallbladder and fistula with leukocytosis remain on Zosyn currently culture still negative. _COPD: Will continue updraft treatment continue supportive care with oxygen as needed and patient still on nicotine patch. _Hypertension: Has been doing well on combination of hydrochlorothiazide if needed will use smaller dose of amlodipine. Blood pressure is well-controlled. _Trigeminal neuralgia: Has been on Tegretol, and pregabalin 150 mg twice a day. _Hypothyroidism: Resume her levothyroxine at 125 mcg daily. _Severe allergy: Continue combination of montelukast along with Claritin-D 24 hours _Chronic neuropathy: Will continue pregabalin 150 mg twice a day. _GI prophylaxis: Has been on Prevacid 30 mg a day. _Nicotine dependency will require to be on nicotine patch. _Severe anxiety attacks: Continue alprazolam if needed an SSRI will be a good idea. _Pain management: Still on morphine sulfate and hydrocodone orally. Prognosis: Good. Titrate physical therapy and activity hopefully increase diet gradually with surgical recommendation expect patient probably to be in the hospital still in the next 48 hours. Objective - Vital Signs Vital signs: Vital Signs Temp 99.2 F 10/20/23 01:17 Pulse 90 10/20/23 01:17 Resp 14 10/20/23 01:17 BP 154/70 10/20/23 01:17 Pulse Ox 90 L 10/20/23 01:17 FiO2 Intake & Output 10/19/23 10/19/23 10/20/23 06:59 18:59 06:59 Intake Total 659.433 Output Total 240 1380 150 Balance 419.433 -1380 -150 Intake: IV 600 Intake, IV Titration 59.433 Amount Ropivacaine 250 mg 59.433 fentaNYL (PF) 1,250 mcg In Sodium Chloride 0.9% 175 ml @ Per Protocol EPIDURAL .Q0M PRN Rx#: [id number] Output: Drainage 40 30 Right Upper Anterior 40 30 Abdomen Urine 200 1350 150 Uretheral ([place]) 200 1350 150 Other: Voiding Method Toilet Toilet Indwelling Catheter - Labs CBC & Chem 7: 10/20/23 06:01 10/20/23 06:01 Labs: Abnormal Lab Results - Last 24 Hours (Table) 10/19/23 10/19/23 Range/Units 06:14 06:14 WBC 15.3 H (3.8-10.6) k/uL Neutrophils # 12.5 H (1.3-7.7) k/uL Monocytes # 1.1 H (0-1.0) k/uL Anion Gap 13.90 H (4.00-12.00) mmol/L AST 72 H (13-35) U/L ALT 82 H (8-44) U/L Alkaline Phosphatase 134 H (41-126) U/L Total Protein 5.8 L (6.2-8.2) g/dL Albumin 3.5 L (3.8-4.9) g/dL Albumin/Globulin Ratio 1.52 L (1.60-3.17) Ratio Microbiology - Last 24 Hours (Table) 10/18/23 02:05 Blood Culture - Preliminary Blood 10/18/23 01:50 Blood Culture - Preliminary Blood
--- NOTE | 2023-10-21 07:58 | P.PN ---
Subjective Progress Note Date: 10/21/23 HISTORY OF PRESENT ILLNESS: 68-year-old female one of our office patient for the last year with past medical history of trigeminal neuralgia, hypertension, hypothyroidism, chronic allergy who has been in the emergency room few times with recurrent abdominal pain was hospitalized for transaminitis had MRCP and ultrasound was diagnosed with subacute and acute cholecystitis and had left the emergency room in the hospital for variety of reasons. Patient presented to the emergency department late last night complaining of ongoing right upper quadrant pain and discomfort with wo rsening symptoms, Her laboratory values still showing significant branch myelitis with AST ALT are elevated no sign of pancreatitis with normal amylase and lipase, normal CBC and liver and kidney enzyme. Apparently the ER had contacted Dr. Sutherland who accepted admission last patient be hospitalized and probably will be going for lap fariha this morning. 10/19/2023: Patient ended up going for open gallbladder surgery yesterday successfully with Dr. Sutherland apparently found to have perforated gallbladder along with fistula to the colon area, gallbladder was removed and the colon was repair the patient had drainage tube left. She is recovering nicely still in quite the pain otherwise hemodynamically stable. Through the night no major complication blood pressure remain well-controlled she is still n.p.o. at this point we will switch her medication to IV. 10/20/2023: She is feeling slightly better, pain is under control still using IV medication was switched to hydrocodone orally, still on Zosyn currently culture remain negative. Her [place] catheter will come out today, titrate diet still have NG tube should initiate physical therapy to help patient ambulate. Her white blood cell climb up to 18,000 her creatinine kidney function is still holding well at this point liver function tests are still fluctuating slight better but hopefully will return back to its baseline in the next few days. If culture remain negative patient antibiotic can be stopped before leaving the hospital. 10/21/2023: She is feeling slightly better today, she still on a clear liquid diet, passing gas, her drainage tube is draining minimum. She had a blood test this morning is not back yet, still nauseous will take her off the Dilaudid today increase hydrocodone up to 10 mg. Patient is having quite a bit cough and irritation from not smoking she had COPD but no sign of infection she still on IV antibiotics for leukocytosis and the perforated gallbladder with fistula that seems to work well. Incision site looks good with no sign of infection. Titrate physical therapy today and ask social media assistant for possibility of patient might need to go to rehab when she is ready to leave the hospital. REVIEW OF SYSTEMS: CONSTITUTIONAL: Mildly overweight no acute respiratory distress EYES: No icterus sclerae, no conjunctivitis. EARS, NOSE, MOUTH, THROAT, and FACE: No sore throat, lymphadenopathy, carotid bruits or deformity. RESPIRATORY: No SOB cough or wheezes. CARDIOVASCULAR: No CP, Palpitation, PND, Orthopnea, or angina. Mild tachycardia GASTROINTESTINAL: Significant abdominal pain with nausea no vomiting no diarrhea significant right upper quadrant pain. GENITOURINARY: Negative for Hematuria or UTI, no kidney stones. INTEGUMENT/BREAST: Negative for any muscular injury with mild osteoarthritis.. HEMATOLOGIC/LYMPHATIC: Negative for bleed or purpura. MUSCULOSKELTAL: Negative for Myalgia or arthralgia. NEURLOGICAL: No LOC, Sz or syncope, blurred vision dizziness or abnormality.. Trigeminal neuralgia with multi medication. BEHAVIORAL/PSYCH: Negative. ENDOCRINE: Negative. PHYSICAL EXAMINATION: General Appearance: Alert, cooperative, no distress, appears stated age. Neck HEENT: Supple, no lymphadenopathy, no thyroid enlargement, no carotid bruits. Lungs: Clear to auscultation without crackles or wheezes no rhonchi, no deformity. Chest Wall: Chest wall normal expansion with deep inspiration no tenderness and no deformity was found on exam, no costochondral pain or discomfort. Heart: Regular rate and rhythm, S1, S2 normal, no murmur, rub or gallop. Back: Symmetric, no curvature, ROM normal, no CVA tenderness. Abdomen: Soft with significant tenderness and discomfort in the right upper quadrant and mid abdominal area no rebound or rigidity. Extremities: Extremities normal, atraumatic, no cyanosis or edema. Pulses: 2+ and symmetric. Skin: Skin color, texture, tugor normal, no rashes or lesions. Neurologic: Alert oriented x3 cranial nerves II through XII intact, no motor deficit, no abnormal balance or gait. ASSESSMENT AND PLAN: _Acute cholecystitis: With severe worsening symptoms: She ended up going for open surgery found to have fistula along with perforated gallbladder still has been drainage tube but no NG tube at this point. Titrate physical therapy increase diet continue pain management with oral pills only without IV. _Severe abdominal pain: Currently explained with the perforated gallbladder along with the fistula with the colon area, post open surgery. Doing slightly better. _Leukocytosis: With the aggressiveness of the gallbladder and fistula with leukocytosis remain on Zosyn currently culture still negative. When she is ready to leave the hospital patient probably can be switched to Augmentin. _COPD: Will continue updraft treatment continue supportive care with oxygen as needed and patient still on nicotine patch. Encourage patient to use her incentive spirometry 10 times on the hour. _Cough: Most likely irritation from not smoking for last 10 days with her COPD causing more symptoms we will use guaifenesin with codeine as needed also continue incentive spirometry. _Hypertension: Has been doing well on combination of hydrochlorothiazide if needed will use smaller dose of amlodipine. Blood pressure is well-controlled. _Trigeminal neuralgia: Has been on Tegretol, and pregabalin 150 mg twice a day. _Hypothyroidism: Resume her levothyroxine at 125 mcg daily. _Severe allergy: Continue combination of montelukast along with Claritin-D 24 hours _Chronic neuropathy: Will continue pregabalin 150 mg twice a day. _GI prophylaxis: Has been on Prevacid 30 mg a day. _Nicotine dependency will require to be on nicotine patch. _Severe anxiety attacks: Continue alprazolam if needed an SSRI will be a good idea. _Pain management: Still on morphine sulfate and hydrocodone orally. Prognosis: Good. Titrate physical therapy and activity hopefully increase diet gradually, social media assistant to work with patient for action for her discharge when she is ready hospital. Objective - Vital Signs Vital signs: Vital Signs Temp 98.0 F 10/21/23 02:05 Pulse 77 10/21/23 02:05 Resp 20 10/21/23 02:05 BP 165/68 10/21/23 02:05 Pulse Ox 91 L 10/21/23 02:05 FiO2 Intake & Output 10/20/23 10/20/23 10/21/23 06:59 18:59 06:59 Output Total 180 500 120 Balance -180 -500 -120 Output: Drainage 30 20 Right Upper Anterior 30 20 Abdomen Urine 150 500 100 Uretheral ([place]) 150 Other: Voiding Method Indwelling Catheter Indwelling Catheter # Voids 1 - Labs CBC & Chem 7: 10/20/23 06:01 10/20/23 06:01 Labs: Abnormal Lab Results - Last 24 Hours (Table) 10/20/23 10/20/23 Range/Units 06:01 06:01 WBC 18.4 H (3.8-10.6) k/uL Neutrophils # 14.1 H (1.3-7.7) k/uL Monocytes # 1.8 H (0-1.0) k/uL Chloride 109 H (98-107) mmol/L Carbon Dioxide 20 L (22-30) mmol/L BUN 19 H (7-17) mg/dL Calcium 8.3 L (8.4-10.2) mg/dL Microbiology - Last 24 Hours (Table) 10/18/23 02:05 Blood Culture - Preliminary Blood 10/18/23 01:50 Blood Culture - Preliminary Blood
[2023-10-21 08:46] LABS: HCT 37.3 % (37.2-46.3); HGB 11.6 g/dL (12.0-15.0); MCH 27.3 pg (27.0-32.0); MCHC 31.1 g/dL (32.0-37.0); MCV 87.8 FL (80.0-97.0); Mean Platelet Volume 10.9 FL (9.5-12.2); NRBC Per 100 WBC 0 X 10*3/uL (0.00-0.01); Platelet Count 243 X 10*3/uL (140-440); RBC 4.25 X 10*6/uL (4.10-5.20); RDW 14.3 % (11.5-14.5); WBC 16.21 X 10*3/uL (4.50-10.00)
[2023-10-21] MEDS: HYDROcodone/APAP 10-325MG 1 EACH TAB PO PRN (08:50)
[2023-10-21] MEDS: guaiFENesin-Coden 100-10MG/5ML 10 ML CUP PO PRN (08:50)
[2023-10-21 09:03] LABS: ALT 59 U/L (8-44); AST 51 U/L (13-35); Albumin/Globulin Ratio 1.25 Ratio (1.60-3.17); Alkaline Phosphatase 108 U/L (41-126); Blood Urea Nitrogen 19.5 mg/dL (9.0-27.0); Calcium 8.4 mg/dL (8.7-10.3); Carbon Dioxide 26.1 mmol/L (21.6-31.8); Chloride 103 mmol/L (96-109); Globulin 2.4 g/dL (1.6-3.3); Glucose 97 mg/dL (70-110); Potassium 3.5 mmol/L (3.5-5.5); Sodium 141 mmol/L (135-145); Total Bilirubin 0.3 mg/dL (0.3-1.2); Total Protein 5.4 g/dL (6.2-8.2)
[2023-10-21 09:22] LABS: Basophils # (M) 0 X 10*3/uL (0.00-0.10)
[2023-10-21 09:24] LABS: Eosinophils # (M) 0.16 X 10*3/uL (0.04-0.35); Lymphocytes # (M) 1.78 X 10*3/uL (0.90-5.00); Monocytes # (M) 0.65 X 10*3/uL (0.20-1.00); Neutrophils # (M) 13.45 X 10*3/uL (1.80-7.70); Neutrophils % (M) 83 %; Promyelocytes # (M) 0.16 k/uL (0); Promyelocytes % 1 %
--- NOTE | 2023-10-21 16:44 | P.PN ---
Subjective Progress Note Date: 10/21/23 CHIEF COMPLAINT: Acute cholecystitis HISTORY OF PRESENT ILLNESS: Patient is postop day #3 status post open cholecystectomy, partial colectomy and partial omentectomy for acute cholecystitis with cholecysto colonic fistula. Patient apparently had more pain during the night and had required increase in pain medication. This morning she is very lethargic. She is sitting at bedside chair. Medicine service has adjusted pain medication discontinue the Dilaudid and placed her back on her home dose of [place] 10. is at bedside. He reports that she has had no nausea or vomiting. She has been tolerating the clear liquids. She is having flatus. As she urinated without difficulty. Afebrile. WBC is down from 18.4- 16 LFTs trending down. GAYLE drain 40 mL serosanguineous output PHYSICAL EXAM: VITAL SIGNS: Reviewed. GENERAL: Well-developed in no acute distress. ABDOMEN: Soft. Nondistended. Tender at incision site. Incisional dressing clean dry and intact. GAYLE drain serosanguineous NEUROLOGIC: Lethargic ASSESSMENT: 1. Acute cholecystitis with cholecysto colonic fistula PLAN: -Advance diet to full liquids -Continue pain management -Encourage patient increase activity level -Encourage patient to use incentive spirometer -Repeat labs in a.m. -Continue antibiotics -DVT prophylaxis subcu heparin Physician Retail Sales Associate Bilingual note has been reviewed by physician. Signing provider agrees with the documented findings, assessment, and plan of care. Objective - Vital Signs Vital signs: Vital Signs Temp 98.2 F 10/21/23 16:37 Pulse 69 10/21/23 16:37 Resp 16 10/21/23 16:37 BP 130/70 10/21/23 16:37 Pulse Ox 94 L 10/21/23 16:37 FiO2 Intake & Output 10/20/23 10/21/23 10/21/23 18:59 06:59 18:59 Output Total 500 120 40 Balance -500 -120 -40 Output: Drainage 20 40 Right Upper Anterior 20 40 Abdomen Urine 500 100 Other: Voiding Method Indwelling Catheter # Voids 1 1 - Labs CBC & Chem 7: 10/21/23 05:34 10/21/23 05:34 Labs: Abnormal Lab Results - Last 24 Hours (Table) 10/21/23 10/21/23 Range/Units 05:34 05:34 WBC 16.21 H (4.50-10.00) X 10*3/uL Hgb 11.6 L (12.0-15.0) g/dL MCHC 31.1 L (32.0-37.0) g/dL BUN/Creatinine Ratio 32.50 H (12.00-20.00) Ratio Calcium 8.4 L (8.7-10.3) mg/dL AST 51 H (13-35) U/L ALT 59 H (8-44) U/L Total Protein 5.4 L (6.2-8.2) g/dL Albumin 3.0 L (3.8-4.9) g/dL Albumin/Globulin Ratio 1.25 L (1.60-3.17) Ratio Microbiology - Last 24 Hours (Table) 10/18/23 02:05 Blood Culture - Preliminary Blood 10/18/23 01:50 Blood Culture - Preliminary Blood
[2023-10-21 21:50] LABS: Glucose,Whole Blood 89 mg/dL (70-110)
[2023-10-22 05:28] LABS: Glucose,Whole Blood 81 mg/dL (70-110)
[2023-10-22 08:42] VITALS: BP 123/71; PULSE 63; RESP 17; TEMP 97.8
[2023-10-22 08:43] LABS: Basophils # (A) 0.03 X 10*3/uL (0.00-0.10); Basophils % (A) 0.3 %; Eosinophils # (A) 0.35 X 10*3/uL (0.04-0.35); Eosinophils % (A) 3.2 %; HCT 37.7 % (37.2-46.3); HGB 12.4 g/dL (12.0-15.0); Lymphocytes # (A) 1.54 X 10*3/uL (0.90-5.00); Lymphocytes % (A) 14.2 %; MCHC 32.9 g/dL (32.0-37.0); MCV 85.1 FL (80.0-97.0); Mean Platelet Volume 10.4 FL (9.5-12.2); Monocytes # (A) 0.84 X 10*3/uL (0.20-1.00); Monocytes % (A) 7.7 %; NRBC Per 100 WBC 0 X 10*3/uL (0.00-0.01); Neutrophils # (A) 7.95 X 10*3/uL (1.80-7.70); Neutrophils % (A) 73.3 %; Platelet Count 276 X 10*3/uL (140-440); RBC 4.43 X 10*6/uL (4.10-5.20); RDW 14.1 % (11.5-14.5); WBC 10.85 X 10*3/uL (4.50-10.00)
[2023-10-22 08:51] LABS: ALT 53 U/L (8-44); AST 38 U/L (13-35); Albumin 3.2 g/dL (3.8-4.9); Albumin/Globulin Ratio 1.28 Ratio (1.60-3.17); Alkaline Phosphatase 111 U/L (41-126); BUN/Creat Ratio 26.67 Ratio (12.00-20.00); Calcium 8.6 mg/dL (8.7-10.3); Carbon Dioxide 24.7 mmol/L (21.6-31.8); Chloride 102 mmol/L (96-109); Globulin 2.5 g/dL (1.6-3.3); Glucose 96 mg/dL (70-110); Potassium 3.1 mmol/L (3.5-5.5); Sodium 140 mmol/L (135-145); Total Bilirubin 0.3 mg/dL (0.3-1.2); Total Protein 5.7 g/dL (6.2-8.2)
--- NOTE | 2023-10-22 10:58 | P.DS ---
Providers Date of admission: 10/18/23 01:47 Expected date of discharge: 10/22/23 Attending physician: Ata Sutherland Consults: 10/18/23 08:02 Consult Physician Routine Consulting Provider: Jeremiah Ma Consult Reason/Comments: medical management Do you want consulting provider notified?: Yes 10/18/23 08:35 Consult Physician Routine Consulting Provider: Marko Beaulieu Consult Reason/Comments: Chest Pain Do you want consulting provider notified?: Yes Primary care physician: Jeremiah Ma Hospital Course: Discharge diagnosis 1. Acute cholecystitis with cholecysto colonic fistula Hospital course This is a 68-year-old female presented with right upper quadrant abdominal pain. Gallbladder ultrasound with a suboptimal study. Gallbladder not well-seen. CT scan abdomen pelvis reported findings to suggest acute cholecystitis. Patient is status post open cholecystectomy, partial colectomy and partial omentectomy for acute cholecystitis with cholecysto colonic fistula. Her pain is controlled. She is tolerating diet. She has ambulated. She is having flatus. She is afebrile. She is stable for discharge. Please refer to chart for any further details. Physician Potato Chip Frier note has been reviewed by physician. Signing provider agrees with the documented findings, assessment, and plan of care. Patient Condition at Discharge: Stable Plan - Discharge Summary New Discharge Prescriptions: New hydrALAZINE HCL [Apresoline] 25 mg PO QID PRN #60 tab PRN Reason: Hypertension Ipratropium-Albuterol Nebulize [Duoneb 0.5 mg-3 mg/3 ml Soln] 3 ml INHALATION RT-QID PRN #120 each PRN Reason: Shortness Of Breath Or Wheezing Nicotine 14Mg/24Hr Patch [Habitrol] 1 patch TRANSDERM DAILY #30 patch guaiFENesin-Coden 100-10MG/5ML [Robitussin AC] 10 ml PO Q6HR PRN #120 ml PRN Reason: Cough metroNIDAZOLE [Flagyl] 250 mg PO TID #21 tab Melatonin 5 mg PO HS tab HYDROcodone/APAP 10-325MG [[place] 10-325] 1 each PO Q6HR PRN #20 tab PRN Reason: Pain ALPRAZolam [Xanax] 0.25 mg PO TID PRN #60 tab PRN Reason: Anxiety Levofloxacin [Levaquin] 500 mg PO DAILY 7 Days #7 tab Continue Montelukast Sodium [Singulair] 10 mg PO DAILY Aspirin 81 mg PO HS Levothyroxine Sodium [Synthroid] 125 mcg PO MOTUTHFRSA [place] Fatty Acids/Fish Oil [Fish Oil 1,000 mg Softgel] 1 cap PO DAILY Cyanocobalamin [Vitamin B-12] 500 mcg PO DAILY Levothyroxine Sodium [Synthroid] 250 mcg PO SUWE traMADol HCl [Ultram] 50 mg PO Q6HR PRN PRN Reason: Pain carBAMazepine [TEGretol] 200 mg PO BID hydroCHLOROthiazide [Hydrodiuril] 25 mg PO DAILY Lansoprazole [Prevacid] 30 mg PO DAILY Simethicone 180 mg PO BID Cholecalciferol [Vitamin D3 (25 Mcg = 1000 Iu)] 50 mcg PO BID Loratadine-Pseudoeph 10-240 mg [Claritin-D 24 Hour] 1 tab PO DAILY Pregabalin [Lyrica] 150 mg PO BID Discharge Medication List Aspirin 81 mg PO HS 11/09/13 [History] Levothyroxine Sodium [Synthroid] 125 mcg PO MOTUTHFRSA 11/09/13 [History] Montelukast Sodium [Singulair] 10 mg PO DAILY 11/09/13 [History] Lansoprazole [Prevacid] 30 mg PO DAILY 12/03/21 [History] [place] Fatty Acids/Fish Oil [Fish Oil 1,000 mg Softgel] 1 cap PO DAILY 12/03/21 [History] Simethicone 180 mg PO BID 12/03/21 [History] carBAMazepine [TEGretol] 200 mg PO BID 12/03/21 [History] hydroCHLOROthiazide [Hydrodiuril] 25 mg PO DAILY 12/03/21 [History] Cholecalciferol [Vitamin D3 (25 Mcg = 1000 Iu)] 50 mcg PO BID 08/13/23 [History] Cyanocobalamin [Vitamin B-12] 500 mcg PO DAILY 08/13/23 [History] Levothyroxine Sodium [Synthroid] 250 mcg PO SUWE 08/13/23 [History] Loratadine-Pseudoeph 10-240 mg [Claritin-D 24 Hour] 1 tab PO DAILY 08/13/23 [History] Pregabalin [Lyrica] 150 mg PO BID 08/13/23 [History] traMADol HCl [Ultram] 50 mg PO Q6HR PRN 10/18/23 [History] ALPRAZolam [Xanax] 0.25 mg PO TID PRN #60 tab 10/22/23 [Rx] HYDROcodone/APAP 10-325MG [[place] 10-325] 1 each PO Q6HR PRN #20 tab 10/22/23 [Rx] Ipratropium-Albuterol Nebulize [Duoneb 0.5 mg-3 mg/3 ml Soln] 3 ml INHALATION RT-QID PRN #120 each 10/22/23 [Rx] Levofloxacin [Levaquin] 500 mg PO DAILY 7 Days #7 tab 10/22/23 [Rx] Melatonin 5 mg PO HS tab 10/22/23 [Rx] Nicotine 14Mg/24Hr Patch [Habitrol] 1 patch TRANSDERM DAILY #30 patch 10/22/23 [Rx] guaiFENesin-Coden 100-10MG/5ML [Robitussin AC] 10 ml PO Q6HR PRN #120 ml 10/22/23 [Rx] hydrALAZINE HCL [Apresoline] 25 mg PO QID PRN #60 tab 10/22/23 [Rx] metroNIDAZOLE [Flagyl] 250 mg PO TID #21 tab 10/22/23 [Rx] Follow up Appointment(s)/Referral(s): Ata Sutherland MD [Medical Doctor] - 11/03/23 1:20 pm [facility], [NON-STAFF] - 1 Week ([facility] will call you to arrange a visit) Jeremiah Ma MD [Primary Care Provider] - 1-2 days & [facility] Procedures [REFERRING] - 1 Week Activity/Diet/Wound Care/Special Instructions: No driving while taking [place] No lifting over 10 pounds You may shower. No soaking or tub baths for 2 weeks Very light activity until you are reevaluated at your follow up appointment with your surgeon Keep a log of GAYLE drain output and bring with you to your follow-up appointment Milk/strip drains 2-3 times a day Discharge Disposition: HOME WITH HOME HEALTH SERVICES
[2023-10-22] MEDS: POTASSIUM CHLORIDE ER 20 MEQ TAB.ER PO STA (11:30)
== END 2023-10-22 13:20 | disposition home health service (06) | DRG 415 ==
LOC: EC 22:07 → 6NMEDSUR 10-18 01:36 → OBSVTOIN 10-18 01:47 → 6NMEDSUR 10-18 04:28 → 4SSUR 10-18 21:40
PROVIDERS: ADMIT Surgery; ATTEND Surgery
PROC: 0DBU0ZZ Excision of Omentum, Open Approach (ICD-10-PCS; 2023-10-18)
PROC: 0DBL0ZZ Excision of Transverse Colon, Open Approach (ICD-10-PCS; 2023-10-18)
PROC: 0FT40ZZ Resection of Gallbladder, Open Approach (ICD-10-PCS; principal; 2023-10-18 16:50)
DX: K80.00 Calculus of gallbladder with acute cholecystitis without obstruction (principal); K63.2 Fistula of intestine; K82.A2 Perforation of gallbladder in cholecystitis; J44.9 Chronic obstructive pulmonary disease, unspecified; F17.200 Nicotine dependence, unspecified, uncomplicated; I10 Essential (primary) hypertension; G50.0 Trigeminal neuralgia; F41.9 Anxiety disorder, unspecified; F32.A Depression, unspecified; E78.5 Hyperlipidemia, unspecified; E03.9 Hypothyroidism, unspecified; Z79.890 Hormone replacement therapy; Z79.82 Long term (current) use of aspirin; Z88.0 Allergy status to penicillin; Z88.2 Allergy status to sulfonamides; Z79.899 Other long term (current) drug therapy
CPT/HCPCS: 36415; 74177; 76705; 80048; 80053; 82150; 83605; 83690; 84484; 85025; 87040; 88304; 88305; 88307; 88311; 93005; 93306; 94760; 96361; 96365; 96368; 96375; 99285

== ENCOUNTER 2024-01-02 10:47 | Emergency (ER) | payer MEDICARE, OTHER ==
[2024-01-02 10:58] VITALS: RESP 18; TEMP 97.5
--- NOTE | 2024-01-02 11:12 | ED ---
General Adult HPI - General Chief complaint: Abdominal Pain Stated complaint: abp Time Seen by Provider: 01/02/24 10:55 Source: patient, EMS, RN notes reviewed Limitations: no limitations - History of Present Illness Initial comments: Patient is a pleasant 68-year-old female present to the emergency department with concerns with nausea and vomiting. Onset was a few hours ago. Patient does feel dry. Patient does have history of abdominal surgery 2 months ago including open cholecystectomy and partial bowel resection. Patient is having some abdominal discomfort still. Discomfort is a little bit worse. - Related Data Home Medications Medication Instructions Recorded Confirmed Aspirin 81 mg PO HS 11/09/13 01/02/24 Levothyroxine Sodium [Synthroid] 125 mcg PO MOTUTHFRSA 11/09/13 01/02/24 Montelukast Sodium [Singulair] 10 mg PO DAILY 11/09/13 01/02/24 Lansoprazole [Prevacid] 30 mg PO DAILY 12/03/21 01/02/24 [place]-3 Fatty Acids/Fish Oil [Fish 1 cap PO DAILY 12/03/21 01/02/24 Oil 1,000 mg Softgel] Simethicone 180 mg PO BID 12/03/21 01/02/24 carBAMazepine [TEGretol] 200 mg PO BID 12/03/21 01/02/24 hydroCHLOROthiazide [Hydrodiuril] 25 mg PO DAILY 12/03/21 01/02/24 Cholecalciferol [Vitamin D3 (25 50 mcg PO BID 08/13/23 01/02/24 Mcg = 1000 Iu)] Cyanocobalamin [Vitamin B-12] 500 mcg PO DAILY 08/13/23 01/02/24 Levothyroxine Sodium [Synthroid] 250 mcg PO SUWE 08/13/23 01/02/24 Loratadine-Pseudoeph 10-240 mg 1 tab PO DAILY 08/13/23 01/02/24 [Claritin-D 24 Hour] Pregabalin [Lyrica] 150 mg PO BID 08/13/23 01/02/24 Previous Rx's Medication Instructions Recorded ALPRAZolam [Xanax] 0.25 mg PO TID PRN #60 tab 10/22/23 Ipratropium-Albuterol Nebulize 3 ml INHALATION RT-QID PRN #120 10/22/23 [Duoneb 0.5 mg-3 mg/3 ml Soln] each Melatonin 5 mg PO HS tab 10/22/23 hydrALAZINE HCL [Apresoline] 25 mg PO QID PRN #60 tab 10/22/23 Allergies Allergy/AdvReac Type Severity Reaction Status Date / Time clindamycin Allergy Swelling Verified 01/02/24 13:48 Penicillins Allergy Unknown Verified 01/02/24 13:48 Childhood Sulfa (Sulfonamide Allergy Rash/Hives Verified 01/02/24 13:48 Antibiotics) Review of Systems ROS Statement: Those systems with pertinent positive or pertinent negative responses have been documented in the HPI. ROS Other: All systems not noted in ROS Statement are negative. Constitutional: Denies: fever Eyes: Denies: eye pain Cardiovascular: Denies: chest pain (Patient states abdominal) Gastrointestinal: Reports: abdominal pain, nausea, vomiting Past Medical History Past Medical History: Asthma, GERD/Reflux, Hyperlipidemia, Osteoarthritis (OA), Thyroid Disorder Additional Past Medical History / Comment(s): TRIGEMINAL NEURALGIA, LT EYE keratoconjuntivitis sicca. CHANGE IN BOWEL HABITS-LOOSE STOOLS SINCE AUG 2021. HYPOGLYCEMIC History of Any Multi-Drug Resistant Organisms: None Reported Past Surgical History: No Surgical Hx Reported, Cholecystectomy Additional Past Surgical History / Comment(s): BILAT cataracts, dental extraction. EGD Past Anesthesia/Blood Transfusion Reactions: No Reported Reaction Past Psychological History: Anxiety, Depression Smoking Status: Current every day smoker Past Alcohol Use History: None Reported Past Drug Use History: None Reported - Past Family History Mother Additional Family Medical History / Comment(s): ADOPTED General Exam Limitations: no limitations General appearance: alert, in no apparent distress Head exam: Present: normocephalic Eye exam: Present: normal appearance ENT exam: Present: mucous membranes dry Neck exam: Present: normal inspection Respiratory exam: Present: normal lung sounds bilaterally Cardiovascular Exam: Present: regular rate, normal rhythm Expanded Peripheral pulses: 2+: Radial (R), Radial (L), Dorsalis Pedis (R), Dorsalis Pedis (L) GI/Abdominal exam: Present: soft, tenderness (Moderate epigastric). Absent: distended Extremities exam: Present: normal inspection Neurological exam: Present: alert Psychiatric exam: Present: normal affect, normal mood Skin exam: Present: other (Mild purplish discoloration bilateral feet and ankles consistent with peripheral vascular disease, patient states chronic.) Course Vital Signs 01/02/24 01/02/24 10:49 12:52 Temperature 97.5 F L Pulse Rate 78 86 Respiratory 18 18 Rate Blood Pressure 167/81 183/94 O2 Sat by Pulse 100 100 Oximetry EKG Findings - EKG Results: EKG: interpreted by BERTD (LVH criteria), sinus rhythm, normal axis, normal ST/T Medical Decision Making - Medical Decision Making Was pt. sent in by a medical professional or institution (, PA, BLANKET BINDER, urgent care, hospital, or retirement...) When possible be specific @ -No Did you speak to anyone other than the patient for history (EMS, parent, family, police, friend...)? What history was obtained from this source @ -No Did you review nursing and triage notes (agree or disagree)? Why? @ -I reviewed and agree with nursing and triage notes Were old charts reviewed (outside hosp., previous admission, EMS record, old EKG, old radiological studies, urgent care reports/EKG's, retirement records)? Report findings @ -Previous admission and surgical reports reviewed Differential Diagnosis (chest pain, altered mental status, abdominal pain women, abdominal pain men, vaginal bleeding, weakness, fever, dyspnea, syncope, headache, dizziness, GI bleed, back pain, seizure, CVA, palpatations, mental health, musculoskeletal)? @ -Differential Abdominal Pain Women: Appendicitis, Cholecystitis, diverticulosis, ischemic bowel, pancreatitis, he patitis, UTI, gastroenteritis, AAA, incarcerated hernia, bowel obstruction, constipation, inflammatory bowel, hepatitis, peptic ulcer disease, splenic infarction, perforated viscus, vulvitis, ovarian torsion, PID, kidney stone, placenta abruption, this is not meant to be an all-inclusive list EKG interpreted by me (3pts min.). @ -As above X-rays interpreted by me (1pt min.). @ -None done CT interpreted by me (1pt min.). @ -CT scan abdomen pelvis shows pancreatitis. Left lung base infiltrate U/S interpreted by me (1pt. min.). @ -None done What testing was considered but not performed or refused? (CT, X-rays, U/S, labs)? Why? @ -None What meds were considered but not given or refused? Why? @ -None Did you discuss the management of the patient with other professionals (professionals i.e. DrLara, PA, BLANKET BINDER, lab, RT, psych nurse, child welfare social worker, kettle hand, teacher, staff mine warfare officer, social work case manager)? Give summary @ -Case discussed with Dr. Prieto who is very failure with this patient. He would like patient to be transferred for GI consult. Case also discussed with Dr. Laura Mae who will accept transfer at [facility]. [facility] is closed for transfers Was smoking cessation discussed for >3mins.? @ -No Was critical care preformed (if so, how long)? @ -No Were there social determinants of health that impacted care today? How? (Homelessness, low income, unemployed, alcoholism, drug addiction, transportation, low edu. Level, literacy, decrease access to med. care, prison, rehab)? @ -No Was there de-escalation of care discussed even if they declined (Discuss DNR or withdrawal of care, Hospice)? DNR status @ -No What co-morbidities impacted this encounter? (DM, HTN, Smoking, COPD, CAD, Cancer, CVA, ARF, Chemo, Hep., AIDS, mental health diagnosis, sleep apnea, morbid obesity)? @ -2 months postop cholecystectomy Was patient admitted / discharged? Hospital course, mention meds given and route, prescriptions, significant lab abnormalities, going to OR and other pertinent info. @ -Patient presents with abdominal discomfort, over 2 months postop cholecystectomy with cholecysto colonic fistula and partial colectomy. Patient presents with pancreatitis. Patient to be transferred for GI. Undiagnosed new problem with uncertain prognosis? @ -No Drug Therapy requiring intensive monitoring for toxicity (Heparin, Nitro, Insulin, Cardizem)? @ -No Were any procedures done? @ -No Diagnosis/symptom? @ -Pancreatitis, transaminitis Acute, or Chronic, or Acute on Chronic? @ -Acute, acute Uncomplicated (without systemic symptoms) or Complicated (systemic symptoms)? @ -Complicated with transaminitis Side effects of treatment? @ -No Exacerbation, Progression, or Severe Exacerbation? @ -No Poses a threat to life or bodily function? How? (Chest pain, [place], [place], pneumonia, PE, COPD, DKA, ARF, appy, cholecystitis, CVA, Diverticulitis, Homicidal, Suicidal, threat to staff... and all critical care pts) @ -Threat to pancreatic and liver function - Lab Data Result diagrams: 01/02/24 11:21 01/02/24 11:21 Lab Results 01/02/24 01/02/24 01/02/24 Range/Units 11:21 11:21 11:21 WBC 12.0 H (3.8-10.6) k/uL RBC 5.38 (3.80-5.40) m/uL Hgb 14.6 (11.4-16.0) gm/dL Hct 47.3 H (34.0-46.0) % MCV 88.1 (80.0-100.0) fL MCH 27.2 (25.0-35.0) pg MCHC 30.9 L (31.0-37.0) g/dL RDW 14.5 (11.5-15.5) % Plt Count 200 (150-450) k/uL MPV 9.6 Neutrophils % 78 % Lymphocytes % 10 % Monocytes % 10 % Eosinophils % 1 % Basophils % 0 % Neutrophils # 9.3 H (1.3-7.7) k/uL Lymphocytes # 1.2 (1.0-4.8) k/uL Monocytes # 1.2 H (0-1.0) k/uL Eosinophils # 0.2 (0-0.7) k/uL Basophils # 0.0 (0-0.2) k/uL PT 10.2 (10.0-12.5) sec INR 0.9 (<1.2) APTT 19.5 L (22.0-30.0) sec Sodium 139 (137-145) mmol/L Potassium 3.9 (3.5-5.1) mmol/L Chloride 103 (98-107) mmol/L Carbon Dioxide 27 (22-30) mmol/L Anion Gap 9 mmol/L BUN 13 (7-17) mg/dL Creatinine 0.54 (0.52-1.04) mg/dL Est GFR (CKD-EPI)AfAm >90 (>60 ml/min/1.73 sqM) Est GFR (CKD-EPI)NonAf >90 (>60 ml/min/1.73 sqM) Glucose 122 H (74-99) mg/dL Calcium 9.7 (8.4-10.2) mg/dL Total Bilirubin 2.4 H (0.2-1.3) mg/dL AST 597 H (14-36) U/L ALT 584 H (4-34) U/L Alkaline Phosphatase 405 H (38-126) U/L Troponin I (0.000-0.034) ng/mL Total Protein 7.3 (6.3-8.2) g/dL Albumin 4.3 (3.5-5.0) g/dL Amylase 1613 H* (30-110) U/L Lipase >16940 H (23-300) U/L // Range/Units 11:21 WBC (3.8-10.6) k/uL RBC (3.80-5.40) m/uL Hgb (11.4-16.0) gm/dL Hct (34.0-46.0) % MCV (80.0-100.0) fL MCH (25.0-35.0) pg MCHC (31.0-37.0) g/dL RDW (11.5-15.5) % Plt Count (150-450) k/uL MPV Neutrophils % % Lymphocytes % % Monocytes % % Eosinophils % % Basophils % % Neutrophils # (1.3-7.7) k/uL Lymphocytes # (1.0-4.8) k/uL Monocytes # (0-1.0) k/uL Eosinophils # (0-0.7) k/uL Basophils # (0-0.2) k/uL PT (10.0-12.5) sec INR (<1.2) APTT (22.0-30.0) sec Sodium (137-145) mmol/L Potassium (3.5-5.1) mmol/L Chloride (98-107) mmol/L Carbon Dioxide (22-30) mmol/L Anion Gap mmol/L BUN (7-17) mg/dL Creatinine (0.52-1.04) mg/dL Est GFR (CKD-EPI)AfAm (>60 ml/min/1.73 sqM) Est GFR (CKD-EPI)NonAf (>60 ml/min/1.73 sqM) Glucose (74-99) mg/dL Calcium (8.4-10.2) mg/dL Total Bilirubin (0.2-1.3) mg/dL AST (14-36) U/L ALT (4-34) U/L Alkaline Phosphatase (38-126) U/L Troponin I <0.012 (0.000-0.034) ng/mL Total Protein (6.3-8.2) g/dL Albumin (3.5-5.0) g/dL Amylase (30-110) U/L Lipase (23-300) U/L Disposition Clinical Impression: Pancreatitis Disposition: OTHER INSTITUTION NOT DEFINED Condition: Serious Is patient prescribed a controlled substance at d/c from ED?: No Referrals: Jeremiah Ma MD [Primary Care Provider] - 1-2 days Time of Disposition: 14:29 - Out of Hospital Transfer - Req. Specs Out of Hospital Transfer - Requested Specifics: Other Emergency Center
[2024-01-02] MEDS: FAMOTIDINE 20 MG/2 ML VIAL IV STA (11:28)
[2024-01-02] MEDS: SODIUM CHLORIDE 0.9% 1,000 ML IV STA (11:28)
[2024-01-02] MEDS: HYDROmorphone 1 MG/ML 1 ML SYRINGE IVP STA ×3 (11:28→15:56)
[2024-01-02] MEDS: ONDANSETRON 4 MG/2 ML VIAL IVP STA (11:29)
[2024-01-02 11:38] LABS: Basophils % (A) 0 %; Eosinophils # (A) 0.2 k/uL (0-0.7); Eosinophils % (A) 1 %; HCT 47.3 % (34.0-46.0); HGB 14.6 gm/dL (11.4-16.0); Lymphocytes # (A) 1.2 k/uL (1.0-4.8); Lymphocytes % (A) 10 %; MCH 27.2 pg (25.0-35.0); MCHC 30.9 g/dL (31.0-37.0); MCV 88.1 fL (80.0-100.0); Mean Platelet Volume 9.6; Monocytes # (A) 1.2 k/uL (0-1.0); Monocytes % (A) 10 %; Neutrophils # (A) 9.3 k/uL (1.3-7.7); Neutrophils % (A) 78 %; Platelet Count 200 k/uL (150-450); RBC 5.38 m/uL (3.80-5.40); RDW 14.5 % (11.5-15.5)
[2024-01-02 11:41] LABS: INR 0.9 (<1.2); Prothrombin Time 10.2 sec (10.0-12.5)
[2024-01-02 11:52] LABS: Partial Thromboplastin Time 19.5 sec (22.0-30.0)
[2024-01-02 11:57] LABS: ALT 584 U/L (4-34); AST 597 U/L (14-36); African American GFR (CKD) >90 (>60 ml/min/1.73 sqM); Albumin 4.3 g/dL (3.5-5.0); Alkaline Phosphatase 405 U/L (38-126); Anion Gap 9 mmol/L; Blood Urea Nitrogen 13 mg/dL (7-17); Calcium 9.7 mg/dL (8.4-10.2); Carbon Dioxide 27 mmol/L (22-30); Chloride 103 mmol/L (98-107); Glucose 122 mg/dL (74-99); Non-African American GFR(CKD) >90 (>60 ml/min/1.73 sqM); Potassium 3.9 mmol/L (3.5-5.1); Sodium 139 mmol/L (137-145); Total Bilirubin 2.4 mg/dL (0.2-1.3); Total Protein 7.3 g/dL (6.3-8.2)
[2024-01-02 12:34] LABS: Amylase 1613 U/L (30-110)
[2024-01-02 12:52] LABS: Lipase >20000 U/L (23-300)
--- NOTE | 2024-01-02 13:42 | CT ---
EXAMINATION TYPE: CT abdomen pelvis w con DATE OF EXAM: 01/02/2024 COMPARISON: 10/18/2023 INDICATION: Abdominal pain and distension, surgery in October to remove gallbladder. DLP: 1914.10 mGycm, Automated exposure control for dose reduction was used. CONTRAST: 100 mL of Isovue 300. Study performed without Oral Contrast TECHNIQUE: Axial images were obtained from above the diaphragm to the pubic rami in the axial plane a t 5 mm thick sections. Reconstructed images are reviewed on the computer in the coronal plane. FINDINGS: Limited CT sections are obtained the lung bases. There is increased lung markings at the lung bases. Some density may be at the lateral left lung base measuring 1.3 cm this may been present previously. Follow-up is recommended.. CT ABDOMEN: Liver: Normal Spleen: Normal Pancreas: Some mild inflammatory changes are adjacent to the distal body and tail of the pancreas. Co rrelate for acute pancreatitis. Mild adjacent inflammatory change may be adjacent to the head of the pancreas. Adrenal glands: The adrenal glands are normal. Gallbladder: Surgically absent Kidneys: No masses are evident. No hydronephrosis is present. There is a 4.4 cm cyst posterior left kidney. A 1.6 cm cyst at the inferior pole left kidney. Delayed images were obtained through the ki dneys, which remain unremarkable. Aorta: Vascular calcification is within the aorta. Inferior vena cava: Normal. CT PELVIS: Loops of bowel within the abdomen and pelvis are normal. This study is without oral contrast limi ts bowel evaluation. Appendix: Normal as visualized. Urinary bladder: Normal. Genitourinary structures: Uterus appears unremarkable. Adnexa are normal. Osseous structures: No suspicious lytic or sclerotic lesions. IMPRESSION: 1. Findings suggestive of mild to moderate pancreatitis. Clinical correlation recommended. 2. Infiltrate at the lung bases greater on the left. Underlying masslike area is not excluded. Follow -up to clearing is recommended
[2024-01-02] MEDS: NICOTINE 21MG/24HR PATCH TRANSDERM STA (15:02)
[2024-01-02 15:07] VITALS: BP 205/95; PULSE 71
== END 2024-01-02 16:32 | disposition other institution (70) ==
LOC: EC 10:47
DX: K85.90 Acute pancreatitis without necrosis or infection, unspecified (principal); F17.200 Nicotine dependence, unspecified, uncomplicated; Z88.0 Allergy status to penicillin; Z88.2 Allergy status to sulfonamides; Z88.8 Allergy status to other drugs, medicaments and biological substances; Z90.49 Acquired absence of other specified parts of digestive tract
CPT/HCPCS: 36415; 93005; 80053; 82150; 83690; 84484; 85025; 85610; 85730; 74177; 99285; 96374; 96375 ×2; 96376 ×2; 96361 ×5; S4990; J2405; J3490; J1170; Q9967

== ENCOUNTER 2024-10-30 02:15 | Emergency (ER) | payer MEDICARE, OTHER ==
[2024-10-30] MEDS: SODIUM CHLORIDE 0.9% 1,000 ML IV STA (03:39)
[2024-10-30 03:46] LABS: Basophils # (A) 0.02 10*3/uL (0.00-0.10); Basophils % (A) 0.1 %; Eosinophils # (A) 0.14 10*3/uL (0.04-0.35); Eosinophils % (A) 0.9 %; HCT 40.9 % (37.2-46.3); HGB 13.4 g/dL (12.0-15.0); Lymphocytes # (A) 1.21 10*3/uL (0.90-5.00); Lymphocytes % (A) 7.9 %; MCH 28.4 pg (27.0-32.0); MCHC 32.8 g/dL (32.0-37.0); MCV 86.7 fL (80.0-97.0); Mean Platelet Volume 10.4 fL (9.5-12.2); Monocytes # (A) 0.96 10*3/uL (0.20-1.00); Monocytes % (A) 6.3 %; Neutrophils # (A) 12.89 10*3/uL (1.80-7.70); Neutrophils % (A) 84.4 %; Platelet Count 189 10*3/uL (140-440); RBC 4.72 10*6/uL (4.10-5.20); RDW 13.7 % (11.5-14.5); WBC 15.28 10*3/uL (4.50-10.00)
[2024-10-30 04:05] LABS: ALT 25 U/L (4-34); AST 24 U/L (14-36); African American GFR (CKD) >90 (>60 ml/min/1.73 sqM); Albumin 3.6 g/dL (3.5-5.0); Alkaline Phosphatase 111 U/L (38-126); Anion Gap 7 mmol/L; Blood Urea Nitrogen 24 mg/dL (7-17); Calcium 9.3 mg/dL (8.4-10.2); Carbon Dioxide 29 mmol/L (22-30); Chloride 102 mmol/L (98-107); Glucose 117 mg/dL (74-99); Lipase 80 U/L (23-300); Magnesium 1.7 mg/dL (1.6-2.3); Non-African American GFR(CKD) 86 (>60 ml/min/1.73 sqM); Potassium 4.2 mmol/L (3.5-5.1); Sodium 138 mmol/L (137-145); Total Bilirubin 0.5 mg/dL (0.2-1.3); Total Protein 6.3 g/dL (6.3-8.2)
[2024-10-30 04:09] LABS: Appearance,Urine Clear (Clear); Bilirubin,Urine Negative (Negative); Blood,Urine Negative (Negative); Color,Urine Colorless; Glucose,Urine (UA) Negative (Negative); Ketones,Urine Negative (Negative); Leukocyte Esterase,Urine Negative (Negative); Nitrite,Urine Negative (Negative); Protein,Urine Negative (Negative); Specific Gravity,Urine 1.003 (1.001-1.035); Urobilinogen,Urine <2.0 mg/dL (<2.0)
--- NOTE | 2024-10-30 04:11 | XR ---
EXAM: XR Chest, 2 Views CLINICAL HISTORY: ITS.REASON XR Reason: Chest Pain TECHNIQUE: Frontal and lateral views of the chest. COMPARISON: No relevant prior studies available. FINDINGS: Lungs: Unremarkable. No consolidation. Pleural space: Unremarkable. No pneumothorax. Heart: Unremarkable. No cardiomegaly. Mediastinum: Unremarkable. Normal mediastinal contour. Bones/joints: Degenerative changes seen within the spine and shoulders. No acute fracture. IMPRESSION: No acute findings in the chest.
[2024-10-30 04:12] LABS: INR 0.9 (<1.2); NT-Pro-B-Type Natriuretic Pept <20 pg/mL; Partial Thromboplastin Time 24.7 sec (22.0-30.0); Prothrombin Time 10.5 sec (10.0-12.5)
[2024-10-30] MEDS: MIDAZOLAM 2 MG/2 ML VIAL IV ONE (06:07)
[2024-10-30 06:10] VITALS: BP 132/75; PULSE 96; RESP 17; TEMP 97.2
--- NOTE | 2024-10-30 07:04 | ED ---
Chest Pain HPI - General Source: patient, RN notes reviewed Mode of arrival: EMS Limitations: no limitations <SmileyMyriam brandon - Last Filed: 10/30/24 20:51> <FaroeseYeni - Last Filed: 10/31/24 00:45> - General Chief Complaint: Chest Pain Stated Complaint: Chest Pain Time Seen by Provider: 10/30/24 02:24 - History of Present Illness Initial Comments: 69-year-old female with history of anxiety presents to the ER for centralized chest pain which radiated to the left arm. Patient was brought in via EMS and received aspirin and Zofran. Patient currently reporting to out of 10 pain. Patient reports she smokes 1.5 to 2.5 packs a day for greater than 40 years. Patient reports she has COPD and is short of breath at baseline, does not use home oxygen. Denies any history of MIs or strokes. Denies any history of being on blood thinners. Denies any fevers, chills, nausea, vomiting, diarrhea, urinary complaints. (Myriam Smiley) - Related Data Home Medications Medication Instructions Recorded Confirmed Aspirin 81 mg PO HS 11/09/13 01/02/24 Levothyroxine Sodium [Synthroid] 125 mcg PO MOTUTHFRSA 11/09/13 01/02/24 Montelukast Sodium [Singulair] 10 mg PO DAILY 11/09/13 01/02/24 Lansoprazole [Prevacid] 30 mg PO DAILY 12/03/21 01/02/24 Alvarado-3 Fatty Acids/Fish Oil [Fish 1 cap PO DAILY 12/03/21 01/02/24 Oil 1,000 mg Softgel] Simethicone 180 mg PO BID 12/03/21 01/02/24 carBAMazepine [TEGretol] 200 mg PO BID 12/03/21 01/02/24 hydroCHLOROthiazide [Hydrodiuril] 25 mg PO DAILY 12/03/21 01/02/24 Cholecalciferol [Vitamin D3 (25 50 mcg PO BID 08/13/23 01/02/24 Mcg = 1000 Iu)] Cyanocobalamin [Vitamin B-12] 500 mcg PO DAILY 08/13/23 01/02/24 Levothyroxine Sodium [Synthroid] 250 mcg PO SUWE 08/13/23 01/02/24 Loratadine-Pseudoeph 10-240 mg 1 tab PO DAILY 08/13/23 01/02/24 [Claritin-D 24 Hour] Pregabalin [Lyrica] 150 mg PO BID 08/13/23 01/02/24 Previous Rx's Medication Instructions Recorded ALPRAZolam [Xanax] 0.25 mg PO TID PRN #60 tab 10/22/23 Ipratropium-Albuterol Nebulize 3 ml INHALATION RT-QID PRN #120 10/22/23 [Duoneb 0.5 mg-3 mg/3 ml Soln] each Melatonin 5 mg PO HS tab 10/22/23 hydrALAZINE HCL [Apresoline] 25 mg PO QID PRN #60 tab 10/22/23 Allergies Allergy/AdvReac Type Severity Reaction Status Date / Time clindamycin Allergy Swelling Verified 10/30/24 02:23 Penicillins Allergy Unknown Verified 10/30/24 02:23 Childhood Sulfa (Sulfonamide Allergy Rash/Hives Verified 10/30/24 02:23 Antibiotics) Review of Systems ROS Other: All systems not noted in ROS Statement are negative. Constitutional: Denies: fever, chills Cardiovascular: Reports: chest pain. Denies: palpitations Gastrointestinal: Denies: nausea, vomiting Genitourinary: Denies: urgency, dysuria Musculoskeletal: Denies: back pain Skin: Denies: rash, lesions Neurological: Denies: headache, weakness <Myriam Smiley - Last Filed: 10/30/24 20:51> ROS Other: All systems not noted in ROS Statement are negative. <Yeni Iglesias - Last Filed: 10/31/24 00:45> ROS Statement: Those systems with pertinent positive or pertinent negative responses have been documented in the HPI. Past Medical History Past Medical History: Asthma, GERD/Reflux, Hyperlipidemia, Osteoarthritis (OA), Thyroid Disorder Additional Past Medical History / Comment(s): TRIGEMINAL NEURALGIA, LT EYE keratoconjuntivitis sicca. CHANGE IN BOWEL HABITS-LOOSE STOOLS SINCE AUG 2021. HYPOGLYCEMIC History of Any Multi-Drug Resistant Organisms: None Reported Past Surgical History: No Surgical Hx Reported, Cholecystectomy Additional Past Surgical History / Comment(s): BILAT cataracts, dental extraction. EGD Past Anesthesia/Blood Transfusion Reactions: No Reported Reaction Past Psychological History: Anxiety, Depression Smoking Status: Current every day smoker Past Alcohol Use History: None Reported Past Drug Use History: None Reported - Past Family History Mother Additional Family Medical History / Comment(s): ADOPTED <Myriam Smiley - Last Filed: 10/30/24 20:51> General Exam Limitations: no limitations General appearance: alert Respiratory exam: Present: normal lung sounds bilaterally. Absent: respiratory distress Cardiovascular Exam: Present: normal rhythm, tachycardia GI/Abdominal exam: Present: soft. Absent: distended, tenderness Neurological exam: Present: alert, oriented X3 Psychiatric exam: Present: normal affect, anxious Skin exam: Present: warm, dry <Myriam Smiley - Last Filed: 10/30/24 20:51> Course Vital Signs 10/30/24 10/30/24 02:16 06:08 Temperature 97.5 F L 97.2 F L Pulse Rate 71 96 Respiratory 18 17 Rate Blood Pressure 139/54 132/75 O2 Sat by Pulse 98 96 Oximetry Procedures - [place] Protocol (Time Out) Nurse: Luis Miguel Lopez <Myriam Smiley - Last Filed: 10/30/24 20:51> Chest Pain MDM <Myriam Smiley - Last Filed: 10/30/24 20:51> <Yeni Iglesias - Last Filed: 10/31/24 00:45> - MDM Was pt. sent in by a medical professional or institution (MARIANNE Bonilla, CATALYST OPERATOR, urgent care, hospital, or detention...) When possible be specific @ -No Did you speak to anyone other than the patient for history (EMS, parent, family, police, friend...)? What history was obtained from this source @ -No Did you review nursing and triage notes (agree or disagree)? Why? @ -I reviewed and agree with nursing and triage notes Were old charts reviewed (outside hosp., previous admission, EMS record, old EKG, old radiological studies, urgent care reports/EKG's, detention records)? Report findings @ -No old charts were reviewed Differential Diagnosis? @ -Differential Chest Pain: Stable Angina, Unstable Angina, STEMI, NSTEMI Aortic Dissection, Pneumothorax, Musculoskeletal, Esophageal Spasm GERD, Cholecystitis, Pancreatitis, Zoster, this is not meant to be an all-inclusive list. EKG interpreted by me (3pts min.). @ -EKG as interpreted by me shows sinus rhythm rate of 68 bpm, 418 ms, no ST-T wave changes chest wall ischemia X-rays interpreted by me (1pt min.). @ -Chest x-ray was unremarkable. CT interpreted by me (1pt min.). @ -None done U/S interpreted by me (1pt. min.). @ -None done What testing was considered but not performed or refused? (CT, X-rays, U/S, labs)? Why? @ -CT was attempted, however patient became extremely nervous and anxious. Discussed with patient premedication and reattempting CT, patient refused. What meds were considered but not given or refused? Why? @ -None Did you discuss the management of the patient with other professionals (professionals i.e. , PA, CATALYST OPERATOR, lab, RT, psych nurse, medical social worker, branch customer service representative, teacher, horticultural technical officer, case management manager)? Give summary @ -Case was discussed with ED attending physician Dr. Iglesias. Was smoking cessation discussed for >3mins.? @ -No Was critical care preformed (if so, how long)? @ -No Were there social determinants of health that impacted care today? How? (Homelessness, low income, unemployed, alcoholism, drug addiction, transportation, low edu. Level, literacy, decrease access to med. care, correction, rehab)? @ -No Was there de-escalation of care discussed even if they declined (Discuss DNR or withdrawal of care, Hospice)? DNR status @ -No What co-morbidities impacted this encounter? (DM, HTN, Smoking, COPD, CAD, Cancer, CVA, ARF, Chemo, Hep., AIDS, mental health diagnosis, sleep apnea, morbid obesity)? @ -Nicotine dependence Was patient admitted / discharged? Hospital course, mention meds given and route, prescriptions, significant lab abnormalities, going to OR and other pertinent info. @ -Patient was deemed suitable for admission. Patient was not amenable to admission. CTA was attempted to rule out PE but patient became incredibly anxious and study was not completed. Discussed with patient regarding premedication and reattempting CT. Patient refused and left AGAINST MEDICAL ADVICE patient aware of all risks and agreed and signed paperwork. Undiagnosed new problem with uncertain prognosis? @ -No Drug Therapy requiring intensive monitoring for toxicity (Heparin, Nitro, Insulin, Cardizem)? @ -No Were any procedures done? @ -No Diagnosis/symptom? @ -Atypical chest pain Acute, or Chronic, or Acute on Chronic? @ -Acute Uncomplicated (without systemic symptoms) or Complicated (systemic symptoms)? @ -Default Side effects of treatment? @ -No Exacerbation, Progression, or Severe Exacerbation? @ -No Poses a threat to life or bodily function? How? (Chest pain, [place], [place], pneumonia, PE, COPD, DKA, ARF, appy, cholecystitis, CVA, Diverticulitis, Homicidal, Suicidal, threat to staff... and all critical care pts) @ -Yes, chest pain, ACS, PE, stroke., Or other vascular compromise. (Myriam Smiley) EKG reviewed, shows sinus rhythm rate 68 bpm intervals within acceptable limits, normal axis, no STEMI elevations or depressions, no ischemic changes I personally saw the patient and performed the critical portion of the service. I discussed the patient care with the resident physician. I directed management, care planning and final disposition of the patient. This includes, but not limited to, review of all lab work, radiological studies, EKG's, consultations, vital signs, and nursing notes. EKG interpreted by me (3pts min.) @As above X-Rays interpreted by me (1 pt min.) @I personally reviewed chest x-ray see no evidence of cardiomegaly, consolidations or pneumothorax agree with radiologist interpretation CT interpreted by me ( 1pt min.) @None U/S interpreted by me (1 pt min.) @None Briefly patient is a 69-year-old female, current smoker, presenting today for substernal chest pain/epigastric pain that felt like had a peptic ulcer in the past. Pain began while she was ambulating to her kitchen. She attempted to eat something which would normally resolve her pain however the pain did not improve. Patient was given Zofran and aspirin by EMS. Patient states pain has subsequently improved. Patient did have an elevated D-dimer and a heart score of 4 and still pt was to be admitted for chest pain evaluation. Pt ultimately chose to leave AMA. Critical care time of 0 minutes excluding separately billable procedures was spent in conjunction with critical care activities provided by the Resident and Attending simultaneously. I was present during no procedures for all critical portions of the procedure and as immediately available to furnish service during the entire procedure. (Faroese,Yeni) Disposition <Myriam Smiley - Last Filed: 10/30/24 20:51> <Yeni Iglesias - Last Filed: 10/31/24 00:45> Clinical Impression: Atypical chest pain Disposition: LEFT AGAINST MEDICAL ADVICE Additional Instructions: Patient was made aware of all risks of leaving the hospital including heart attacks, stroke, pulmonary embolism, or even . Patient accepted these risks and signed paperwork stating she would leave AGAINST MEDICAL ADVICE. Referrals: Jeremiah Ma MD [Primary Care Provider] - 1-2 days
== END 2024-10-30 06:50 | disposition left against medical advice (07) ==
LOC: EC 02:15
DX: R07.89 Other chest pain (principal); F17.200 Nicotine dependence, unspecified, uncomplicated; Z88.0 Allergy status to penicillin; Z88.2 Allergy status to sulfonamides; Z88.1 Allergy status to other antibiotic agents; Z53.29 Procedure and treatment not carried out because of patient's decision for other reasons
CPT/HCPCS: 36415; 71046; 80053; 81003; 83690; 83735; 83880; 84484; 85025; 85379; 85610; 85730; 96360; 99285